=== PATIENT | female | born 1995 | race American Indian/Alaskan Native ===

== ENCOUNTER 2019-03-26 12:40 | Inpatient (IN) | payer MEDICAID ==
[2019-03-26] MEDS ORDERED: ZOFRAN IV PRN (13:02)
[2019-03-26] MEDS ORDERED: SODIUM CHLORIDE FLUSH SYRINGE 10 ML IV PRN (13:02)
[2019-03-26] MEDS: D5NS 0.2% 1,000 ML IV SCH ×2 (16:14→22:30)
[2019-03-26] MEDS: DILAUDID IV PRN ×2 (16:19→21:07)
[2019-03-26] MEDS: BENADRYL IV PRN ×2 (16:28→22:34)
[2019-03-26] MEDS: FOLVITE PO SCH (16:31)
[2019-03-26 20:05] LABS: Hematocrit 23.1 % (30.3-42.9); Hemoglobin 8.1 gm/dl (10.1-14.3); Mean Corpuscular HGB Conc 35 % (30-34); Mean Corpuscular Volume 110 fl (79-97); Platelet Count 703 K/mm3 (140-440); Red Blood Count 2.11 M/mm3 (3.65-5.03); Red Cell Distribution Width 15.5 % (13.2-15.2)
[2019-03-26 20:35] LABS: BUN/Creatinine Ratio 35; Blood Urea Nitrogen 7 mg/dL (7-17); Calcium 8.8 mg/dL (8.4-10.2); Hemolysis Index 146
[2019-03-26 20:36] LABS: % Iron Saturation 88.04 %
[2019-03-26 21:06] LABS: Alanine Aminotransferase 58 units/L (7-56)
[2019-03-26 21:25] LABS: Basophils % (Manual) 0 % (0.0-1.8); Platelet Estimate Appears Increased; Total Cells Counted 100
[2019-03-26 21:26] LABS: Sickle Cells 1+; Target Cells 1+
[2019-03-26 21:27] LABS: Macrocytosis 1+; Ovalocytes Few
[2019-03-26] MEDS: HEPARIN SUB-Q SCH (22:27)
[2019-03-26] MEDS: SODIUM CHLORIDE FLUSH SYRINGE 10 ML IV SCH (22:27)
--- NOTE | 2019-03-26 23:20 | History and Physical Report ---
History of Present Illness Date of examination: 03/26/19 Date of admission: 03/26/19 15:12 Chief complaint: sickle pain crisis. History of present illness: Patient presented to the office with diffuse joint pain, not controlled by her home meds. She was admitted for sxs management/control. Labs reviewed. WBC elevated , may be sepsis vs reactive process. hgb is fair at 8.1. Will hydrate, pain control, IV ABX until sepsis r/o.Once stable, will d/c home. She currently denies any CP.PLT quite high, felt to be reactive at this time. Past History Past Medical History: anemia Social history: no significant social history Family history: no significant family history Medications and Allergies Allergies Allergy/AdvReac Type Severity Reaction Status Date / Time morphine AdvReac Intermediate Nausea Verified 02/14/14 14:09 Home Medications Medication Instructions Recorded Confirmed Last Taken Type Folic Acid [Folvite] 1 mg PO QDAY #30 tablet 02/14/14 Unknown Rx Pantoprazole [Protonix TAB] 40 mg PO QDAY #30 tablet 02/20/14 Unknown Rx levoFLOXacin [Levaquin TAB] 750 mg PO QDAY #6 tablet 02/20/14 Unknown Rx metroNIDAZOLE [Flagyl TAB] 500 mg PO Q8HR #18 tablet 02/20/14 Unknown Rx oxyCODONE /ACETAMINOPHEN [Percocet 1 tab PO Q6HR PRN #20 tablet 02/20/14 Unknown Rx 5/325 mg] Active Meds: Active Medications Diphenhydramine HCl (Benadryl) 25 mg IV Q6H PRN PRN Reason: Itching Last Admin: 03/26/19 22:34 Dose: 25 mg Documented by: Folic Acid (Folvite) 1 mg PO QDAY APOLLO Last Admin: 03/26/19 16:31 Dose: 1 mg Documented by: Heparin Sodium (Porcine) (Heparin) 5,000 unit SUB-Q Q12HR APOLLO Last Admin: 03/26/19 22:27 Dose: 5,000 unit Documented by: Hydromorphone HCl (Dilaudid) 2 mg IV Q3H PRN PRN Reason: Pain , Severe (7-10) Last Admin: 03/26/19 21:07 Dose: 2 mg Documented by: Dextrose/Sodium Chloride (D5ns 0.2%) 1,000 mls @ 250 mls/hr IV DIRECT APOLLO Last Admin: 03/26/19 22:30 Dose: 250 mls/hr Documented by: Ceftriaxone Sodium (Rocephin/Ns 1 Gm/50 Ml) 1 gm in 50 mls @ 100 mls/hr IV Q24HR [facility]; Protocol Ondansetron HCl (Zofran) 4 mg IV Q8H PRN PRN Reason: Nausea And Vomiting Oxycodone/Acetaminophen (Percocet 5/325) 2 tab PO Q6H PRN PRN Reason: BREAKTHRU PAIN Sodium Chloride (Sodium Chloride Flush Syringe 10 Ml) 10 ml IV BID [facility] Last Admin: 03/26/19 22:27 Dose: 10 ml Documented by: Sodium Chloride (Sodium Chloride Flush Syringe 10 Ml) 10 ml IV PRN PRN PRN Reason: LINE FLUSH Review of Systems Constitutional: fatigue, chronic pain Breasts: deferred Exam - Constitutional General appearance: Present: mild distress - EENT Eyes: Present: PERRL ENT: hearing intact, clear oral mucosa - Neck Neck: Present: supple, normal ROM - Respiratory Respiratory effort: normal Respiratory: bilateral: CTA - Cardiovascular Heart Sounds: Present: S1 & S2. Absent: rub, click - Extremities Extremities: pulses symmetrical, No edema Peripheral Pulses: within normal limits - Abdominal General gastrointestinal: Present: soft, non-tender, non-distended, normal bowel sounds Female genitourinary: Present: deferred - Rectal Rectal Exam: deferred - Integumentary Integumentary: Present: clear, warm, dry - Musculoskeletal Musculoskeletal: gait normal, strength equal bilaterally - Psychiatric Psychiatric: appropriate mood/affect, intact judgment & insight - Neurologic Neurologic: CNII-XII intact, moves all extremities Results - Labs CBC & Chem 7: 03/26/19 19:31 03/26/19 19:31 Labs: Abnormal lab results 03/26/19 03/26/19 03/26/19 Range/Units 19:31 19:31 19:31 WBC 18.0 H (4.5-11.0) K/mm3 RBC 2.11 L (3.65-5.03) M/mm3 Hgb 8.1 L (10.1-14.3) gm/dl Hct 23.1 L (30.3-42.9) % MCV 110 H (79-97) fl MCH 38 H (28-32) pg MCHC 35 H (30-34) % RDW 15.5 H (13.2-15.2) % Plt Count 703 H (140-440) K/mm3 Eosinophils % (Manual) 6.0 H (0.0-4.3) % Nucleated RBC % 1.0 H (0.0-0.9) % Seg Neutrophils # Man 12.6 H (1.8-7.7) K/mm3 Eosinophils # (Manual) 1.1 H (0.0-0.4) K/mm3 Percent Retic 13.05 H (0.78-2.58) % Carbon Dioxide 21 L (22-30) mmol/L Creatinine < 0.2 L (0.7-1.2) mg/dL Iron 184 H (37-170) ug/dL TIBC 209 L (250-450) mcg/dL Transferrin 161 L (192-382) mg/dl Total Bilirubin 7.30 H (0.1-1.2) mg/dL AST 63 H (5-40) units/L ALT 58 H (7-56) units/L Assessment and Plan - Patient Problems (1) Sickle cell anemia with crisis Current Visit: No Status: Acute Plan to address problem: Tx pain, monitor labs. (2) Dehydration Current Visit: No Status: Acute Plan to address problem: Hydration (3) Sepsis Current Visit: Yes Status: Acute Plan to address problem: Will try to r/o, or r/in. will continue ABX , until then.
[2019-03-27] MEDS: DILAUDID IV PRN ×7 (01:27→23:52)
[2019-03-27] MEDS: D5NS 0.2% 1,000 ML IV SCH ×4 (02:47→20:34)
[2019-03-27] MEDS: BENADRYL IV PRN ×2 (05:11→20:24)
[2019-03-27 05:42] LABS: Bacteria,Urine 1+ /HPF (Negative); Bilirubin,Urine NEG (Negative); Blood,Urine NEG (Negative); Color,Urine Amber (Yellow); Mucus,Urine FEW /HPF; Protein,Urine <15 mg/dL mg/dL (Negative)
[2019-03-27] MEDS: PERCOCET 5/325 PO PRN ×2 (07:20→12:44)
--- NOTE | 2019-03-27 08:56 | XRay Report ---
ROUTINE CHEST, TWO VIEWS: HISTORY: Cough. The trachea, heart, mediastinal contour, lung hernandez and bony thorax are unremarkable. IMPRESSION: Unremarkable chest x-ray.
[2019-03-27] MEDS ORDERED: FOLVITE PO SCH (10:00)
[2019-03-27] MEDS ORDERED: ROCEPHIN/NS 1 GM/50 ML 1 GM/50 ML BAG IV SCH (10:00)
[2019-03-27] MEDS ORDERED: DILAUDID IV ONE (11:15)
[2019-03-27] MEDS: FOLVITE PO SCH (11:20)
[2019-03-27] MEDS: SODIUM CHLORIDE FLUSH SYRINGE 10 ML IV SCH ×2 (11:21→22:00)
[2019-03-27] MEDS: HEPARIN SUB-Q SCH ×2 (11:21→23:56)
[2019-03-27] MEDS: TORADOL IV SCH (15:41)
--- NOTE | 2019-03-27 18:42 | Discharge Summary ---
Providers - Providers Date of Admission: 03/26/19 15:12 Date of discharge: 03/28/19 Attending physician: ALAINA LUA Primary care physician: ALAINA LUA Hospitalization Reason for admission: SCD/Pain crisis. Condition: Fair Hospital course: Patient seen/examined, resting in bed, she stated ,was in a lot of pain, but better with current pain regimen.Will continue with current plan, and set up D/C home tomorrow. Disposition: - TO HOME OR SELFCARE - Discharge Diagnoses (1) Sickle cell anemia with crisis Status: Chronic (2) Dehydration Status: Acute (3) Sepsis Status: Suspected Core Measure Documentation - Palliative Care Palliative Care/ Comfort Measures: Not Applicable - Core Measures Any of the following diagnoses?: none Exam - Constitutional Vitals: Temp Pulse Resp BP Pulse Ox 98.1 F 94 H 18 97/51 92 03/27/19 17:08 03/27/19 17:08 03/27/19 17:08 03/27/19 17:08 03/27/19 17:08 General appearance: Present: mild distress - Abdominal Female genitourinary: Present: deferred - Rectal Rectal Exam: deferred Plan Activity: no restrictions Diet: regular (Hold d/c till tomorrow, and D?C then.) Follow up with: ALAINA LUA DO [Primary Care Provider] - 7 Days
[2019-03-28] MEDS: TORADOL IV SCH ×2 (02:00→07:55)
[2019-03-28] MEDS: DILAUDID IV PRN (05:10)
[2019-03-28] MEDS: BENADRYL IV PRN (05:13)
[2019-03-28 13:23] VITALS: BP 94/47
== END 2019-03-28 10:01 | disposition home or self-care (01) | DRG 812 ==
LOC: 3A 12:40 → UNDOADMIN 12:40 → 3A 15:12
PROVIDERS: ADMIT Internal Medicine Hematology & Oncology; ATTEND Internal Medicine Hematology & Oncology
DX: D57.00 Hb-SS disease with crisis, unspecified (principal); E86.0 Dehydration; Z88.5 Allergy status to narcotic agent; Z79.899 Other long term (current) drug therapy
CPT/HCPCS: 36415; 71046; 80053; 81001; 83550; 84702; 85007; 85025; 85045; 87040; 87086; 87116; G0378; J0696; J1170; J1200; J1644; J1885; J2405

== ENCOUNTER 2019-03-28 14:58 | Inpatient (IN) | payer MEDICAID ==
--- NOTE | 2019-03-28 15:06 | Emergency Department Report ---
Blank Doc - Documentation Documentation: pt presents for sickle cell pain states she has pain everywhere states she saw her doctor two days ago and was given fluids pt states she was admitted to hospital and had a blood transfusion 3-4 months states she has been taking her medication denies any other PMHx non smoker non drinker no drug use
[2019-03-28 15:24] LABS: Hematocrit 22.2 % (30.3-42.9); Hemoglobin 7.8 gm/dl (10.1-14.3); Mean Corpuscular HGB Conc 35 % (30-34); Mean Corpuscular Volume 108 fl (79-97); Platelet Count 714 K/mm3 (140-440); Red Blood Count 2.06 M/mm3 (3.65-5.03); Red Cell Distribution Width 18.4 % (13.2-15.2)
[2019-03-28 15:36] LABS: Alanine Aminotransferase 85 units/L (7-56); Albumin 4.4 g/dL (3.9-5); BUN/Creatinine Ratio 20; Blood Urea Nitrogen 6 mg/dL (7-17); Calcium 9.3 mg/dL (8.4-10.2); Hemolysis Index 15
[2019-03-28] MEDS ORDERED: ZOFRAN IV ONE ×2 (15:54→17:31)
[2019-03-28] MEDS ORDERED: DILAUDID IV ONE ×4 (15:55→18:01)
[2019-03-28] MEDS ORDERED: D5NS 0.2% 1,000 ML IV SCH (16:00)
[2019-03-28] MEDS ORDERED: BENADRYL IV ONE (16:05)
[2019-03-28] MEDS ORDERED: TORADOL IV ONE (16:38)
[2019-03-28] MEDS ORDERED: DILAUDID ONE (16:42)
[2019-03-28 16:44] LABS: Basophils % (Manual) 0 % (0.0-1.8); Total Cells Counted 100
--- NOTE | 2019-03-28 16:44 | Emergency Department Report ---
ED General Adult HPI - General Chief complaint: Sickle Cell Crisis Stated complaint: SICKLE CELL Time Seen by Provider: 03/28/19 16:20 Source: patient Mode of arrival: Wheelchair Limitations: No Limitations - History of Present Illness Initial comments: Patient is a 23-year-old female presents to emergency with generalized body pain and sickle cell crisis. Patient states been going on for 2 days. Patient states her symptoms worsen. Patient states her generalized pain is 10. Patient states the pain is worsening. Patient states better with rest and worse with palpation and movement. Patient denies chest pain or shortness of breath. -: Sudden Severity scale (0 -10): 10 Quality: stabbing Consistency: constant Improves with: rest Worsens with: movement Associated Symptoms: nausea/vomiting. denies: confusion, chest pain, cough, diaphoresis, fever/chills, headaches, loss of appetite, malaise, rash, seizure, shortness of breath, syncope, weakness Treatments Prior to Arrival: NSAID, other - Related Data Previous Rx's Medication Instructions Recorded Last Taken Type Folic Acid [Folvite] 1 mg PO QDAY #30 tablet 02/14/14 Unknown Rx Pantoprazole [Protonix TAB] 40 mg PO QDAY #30 tablet 02/20/14 Unknown Rx levoFLOXacin [Levaquin TAB] 750 mg PO QDAY #6 tablet 02/20/14 Unknown Rx metroNIDAZOLE [Flagyl TAB] 500 mg PO Q8HR #18 tablet 02/20/14 Unknown Rx oxyCODONE /ACETAMINOPHEN [Percocet 1 tab PO Q6HR PRN #20 tablet 02/20/14 Unknown Rx 5/325 mg] Allergies Allergy/AdvReac Type Severity Reaction Status Date / Time morphine AdvReac Intermediate Nausea Verified 02/14/14 14:09 ED Review of Systems ROS: Stated complaint: SICKLE CELL Other details as noted in HPI Constitutional: denies: chills, fever Eyes: denies: eye pain, eye discharge, vision change ENT: denies: ear pain, throat pain Respiratory: denies: cough, shortness of breath, wheezing Cardiovascular: denies: chest pain, palpitations Endocrine: no symptoms reported Gastrointestinal: nausea, vomiting. denies: abdominal pain, diarrhea Genitourinary: denies: urgency, dysuria, discharge Musculoskeletal: back pain. denies: joint swelling, arthralgia Skin: denies: rash, lesions Neurological: denies: headache, weakness, paresthesias Psychiatric: denies: anxiety, depression Hematological/Lymphatic: denies: easy bleeding, easy bruising ED Past Medical Hx - Past Medical History Previous Medical History?: Yes Hx Congestive Heart Failure: No Hx Diabetes: No Hx Sickle Cell Disease: Yes Hx Asthma: No Hx COPD: No Hx HIV: No - Surgical History Past Surgical History?: Yes Hx Cholecystectomy: Yes Additional Surgical History: spleen removed, and gallbaddler - Family History Family history: no significant - Social History Smoking Status: Never Smoker Substance Use Type: None - Medications Home Medications: Home Medications Medication Instructions Recorded Confirmed Last Taken Type Folic Acid [Folvite] 1 mg PO QDAY #30 tablet 02/14/14 Unknown Rx Pantoprazole [Protonix TAB] 40 mg PO QDAY #30 tablet 02/20/14 Unknown Rx levoFLOXacin [Levaquin TAB] 750 mg PO QDAY #6 tablet 02/20/14 Unknown Rx metroNIDAZOLE [Flagyl TAB] 500 mg PO Q8HR #18 tablet 02/20/14 Unknown Rx oxyCODONE /ACETAMINOPHEN [Percocet 1 tab PO Q6HR PRN #20 tablet 02/20/14 Unknow n Rx 5/325 mg] ED Physical Exam - General Limitations: No Limitations General appearance: alert, in no apparent distress - Head Head exam: Present: atraumatic, normocephalic - Eye Eye exam: Present: normal appearance - ENT ENT exam: Present: mucous membranes moist - Neck Neck exam: Present: normal inspection - Respiratory Respiratory exam: Present: normal lung sounds bilaterally. Absent: respiratory distress - Cardiovascular Cardiovascular Exam: Present: regular rate, normal rhythm. Absent: systolic murmur, diastolic murmur, rubs, gallop - GI/Abdominal GI/Abdominal exam: Present: soft, normal bowel sounds - Rectal Rectal exam: Present: deferred - Extremities Exam Extremities exam: Present: normal inspection, full ROM, tenderness - Back Exam Back exam: Present: normal inspection, full ROM, tenderness - Neurological Exam Neurological exam: Present: alert, oriented X3 - Psychiatric Psychiatric exam: Present: normal affect, normal mood - Skin Skin exam: Present: warm, dry, intact, normal color. Absent: rash ED Course Vital Signs 03/28/19 03/28/19 03/28/19 15:04 16:50 16:52 Temperature 99.8 F H Pulse Rate 134 H Respiratory 16 22 22 Rate Blood Pressure Blood Pressure 134/84 [Left] O2 Sat by Pulse 96 Oximetry 03/28/19 03/28/19 03/28/19 17:11 17:20 17:30 Temperature Pulse Rate 119 H 93 H 95 H Respiratory 18 19 19 Rate Blood Pressure 120/59 120/59 Blood Pressure [Left] O2 Sat by Pulse 94 98 Oximetry 03/28/19 03/28/19 03/28/19 17:40 17:50 18:00 Temperature Pulse Rate 82 82 85 Respiratory 15 15 16 Rate Blood Pressure 120/59 120/59 108/50 Blood Pressure [Left] O2 Sat by Pulse 97 98 96 Oximetry 03/28/19 03/28/19 03/28/19 18:10 18:20 18:30 Temperature Pulse Rate 88 90 Respiratory 13 14 13 Rate Blood Pressure 108/50 108/50 108/50 Blood Pressure [Left] O2 Sat by Pulse 96 97 97 Oximetry 03/28/19 03/28/19 03/28/19 18:40 18:50 19:00 Temperature Pulse Rate 88 115 H 77 Respiratory 12 19 18 Rate Blood Pressure 108/50 108/50 92/54 Blood Pressure [Left] O2 Sat by Pulse 98 95 97 Oximetry 03/28/19 03/28/19 03/28/19 19:02 19:10 19:20 Temperature Pulse Rate 77 114 H Respiratory 18 15 15 Rate Blood Pressure 92/54 92/54 Blood Pressure [Left] O2 Sat by Pulse 99 98 97 Oximetry 03/28/19 03/28/19 03/28/19 19:30 19:40 19:50 Temperature Pulse Rate 89 Respiratory 13 18 12 Rate Blood Pressure 92/54 92/54 92/54 Blood Pressure [Left] O2 Sat by Pulse 97 97 97 Oximetry 03/28/19 03/28/19 20:00 20:10 Temperature 99 F Pulse Rate 78 Respiratory 13 16 Rate Blood Pressure 99/50 99/50 Blood Pressure 99/50 [Left] O2 Sat by Pulse 99 99 Oximetry - Reevaluation(s) Reevaluation #1: Patient is complaining of significant pain. Patient will be given another 2 of Dilaudid and Toradol. Discussed all results with patient. Patient will be admitted to the hospitalist service. Patient agrees to plan of care. 03/28/19 16:40 Patient admitted to the hospitalist service. Patient still complaining of significant pain. Patient will get another dose of Dilaudid. 03/28/19 17:00 Patient still having significant pain. Patient given another dose of Dilaudid. 03/28/19 17:30 - Consultations Consultation #1: pcp consulted for admission. Primary care states that he is unable to admit today because he is out of town. Primary care recommends the patient admitted to the hospitalist service 03/28/19 16:45 Consultation #2: Hospitalist consultation for admission. Hospitalist to admit patient. Hospitalist to assume care patient. 03/28/19 16:46 ED Medical Decision Making - Lab Data Result diagrams: 03/28/19 15:07 03/28/19 15:07 - Medical Decision Making Patient is a 23-year-old female with a history of sickle cell anemia that presents emergency room with generalized pain and sickle cell crisis. Patient will be admitted to the hospitalist service. Patient's labs were unremarkable except for elevated reticulocyte count and anemia. Patient required multiple doses of Dilaudid to control the patient's pain. Patient also given Benadryl and Zofran. - Differential Diagnosis sickle cell crisis. Sickle cell anemia. Generalized pain. Critical Care Time: Yes Critical care attestation.: If time is entered above; I have spent that time in minutes in the direct care of this critically ill patient, excluding procedure time. Critical Care Time: 35 minutes ED Disposition Clinical Impression: Generalized pain, Sickle cell anemia with crisis Disposition: OP ADMIT IP TO THIS HOSP Is pt being admited?: Yes Does the pt Need Aspirin: No Condition: Critical Time of Disposition: 16:50
[2019-03-28 16:45] LABS: Hypochromasia 2+; Macrocytosis 1+; Sickle Cells 2+
[2019-03-28 16:46] LABS: Anisocytosis 2+; Platelet Estimate Appears Increased; Target Cells Few
--- NOTE | 2019-03-28 18:14 | History and Physical Report ---
History of Present Illness Date of examination: 03/28/19 Medications and Allergies Allergies Allergy/AdvReac Type Severity Reaction Status Date / Time morphine AdvReac Intermediate Nausea Verified 02/14/14 14:09 Home Medications Medication Instructions Recorded Confirmed Last Taken Type Folic Acid [Folvite] 1 mg PO QDAY #30 tablet 02/14/14 Unknown Rx Pantoprazole [Protonix TAB] 40 mg PO QDAY #30 tablet 02/20/14 Unknown Rx levoFLOXacin [Levaquin TAB] 750 mg PO QDAY #6 tablet 02/20/14 Unknown Rx metroNIDAZOLE [Flagyl TAB] 500 mg PO Q8HR #18 tablet 02/20/14 Unknown Rx oxyCODONE /ACETAMINOPHEN [Percocet 1 tab PO Q6HR PRN #20 tablet 02/20/14 Unk nown Rx 5/325 mg] Active Meds: Active Medications Dextrose/Sodium Chloride (D5ns 0.2%) 1,000 mls @ 250 mls/hr IV DIRECT APOLLO Last Admin: 03/28/19 16:04 Dose: 250 mls/hr Documented by: Exam - Constitutional Vitals: Temp Pulse Resp BP Pulse Ox 99.8 F H 134 H 18 134/84 96 03/28/19 15:04 03/28/19 15:04 03/28/19 17:40 03/28/19 15:04 03/28/19 15:04 Results - Labs CBC & Chem 7: 03/28/19 15:07 03/28/19 15:07 Labs: Laboratory Last Values WBC 14.2 K/mm3 (4.5-11.0) H 03/28/19 15:07 RBC 2.06 M/mm3 (3.65-5.03) L 03/28/19 15:07 Hgb 7.8 gm/dl (10.1-14.3) L 03/28/19 15:07 Hct 22.2 % (30.3-42.9) L 03/28/19 15:07 MCV 108 fl (79-97) H 03/28/19 15:07 MCH 38 pg (28-32) H 03/28/19 15:07 MCHC 35 % (30-34) H 03/28/19 15:07 RDW 18.4 % (13.2-15.2) H 03/28/19 15:07 Plt Count 714 K/mm3 (140-440) H 03/28/19 15:07 Eos % (Auto) Envelope Sealer 03/28/19 15:07 Add Manual Diff Complete 03/28/19 15:07 Total Counted 100 03/28/19 15:07 Seg Neuts % (Manual) 55.0 % (40.0-70.0) 03/28/19 15:07 0 % 03/28/19 15:07 28.0 % (13.4-35.0) 03/28/19 15:07 Reactive Lymphs % (Man) 0 % 03/28/19 15:07 10.0 % (0.0-7.3) H 03/28/19 15:07 7.0 % (0.0-4.3) H 03/28/19 15:07 0 % (0.0-1.8) 03/28/19 15:07 0 % 03/28/19 15:07 0 % 03/28/19 15:07 0 % 03/28/19 15:07 0 % 03/28/19 15:07 Nucleated RBC % 3.0 % (0.0-0.9) H 03/28/19 15:07 Seg Neutrophils # Man 7.8 K/mm3 (1.8-7.7) H 03/28/19 15:07 Band Neutrophils # 0.0 K/mm3 03/28/19 15:07 4.0 K/mm3 (1.2-5.4) 03/28/19 15:07 Abs React Lymphs (Man) 0.0 K/mm3 03/28/19 15:07 1.4 K/mm3 (0.0-0.8) H 03/28/19 15:07 1.0 K/mm3 (0.0-0.4) H 03/28/19 15:07 0.0 K/mm3 (0.0-0.1) 03/28/19 15:07 0.0 K/mm3 03/28/19 15:07 0.0 K/mm3 03/28/19 15:07 0.0 K/mm3 03/28/19 15:07 Blast Cells # 0.0 K/mm3 03/28/19 15:07 WBC Morphology Not Reportable 03/28/19 15:07 Hypersegmented Neuts Not Reportable 03/28/19 15:07 Hyposegmented Neuts Not Reportable 03/28/19 15:07 Hypogranular Neuts Not Reportable 03/28/19 15:07 Not Reportable 03/28/19 15:07 Not Reportable 03/28/19 15:07 Not Reportable 03/28/19 15:07 Not Reportable 03/28/19 15:07 Not Reportable 03/28/19 15:07 Not Reportable 03/28/19 15:07 Appears increased 03/28/19 15:07 Not Reportable 03/28/19 15:07 Plt Clumps, EDTA Not Reportable 03/28/19 15:07 Not Reportable 03/28/19 15:07 Not Reportable 03/28/19 15:07 Not Reportable 03/28/19 15:07 Plt Morphology Comment Not Reportable 03/28/19 15:07 RBC Morphology Not Reportable 03/28/19 15:07 Dimorphic RBCs Not Reportable 03/28/19 15:07 1+ 03/28/19 15:07 2+ 03/28/19 15:07 Not Reportable 03/28/19 15:07 2+ 03/28/19 15:07 Not Reportable 03/28/19 15:07 1+ 03/28/19 15:07 Not Reportable 03/28/19 15:07 Not Reportable 03/28/19 15:07 2+ 03/28/19 15:07 Few 03/28/19 15:07 Not Reportable 03/28/19 15:07 Not Reportable 03/28/19 15:07 Not Reportable 03/28/19 15:07 Not Reportable 03/28/19 15:07 Not Reportable 03/28/19 15:07 Not Reportable 03/28/19 15:07 Not Reportable 03/28/19 15:07 Not Reportable 03/28/19 15:07 Not Reportable 03/28/19 15:07 Acanthocytes (Spur) Not Reportable 03/28/19 15:07 Rouleaux Not Reportable 03/28/19 15:07 Not Reportable 03/28/19 15:07 Not Reportable 03/28/19 15:07 Not Reportable 03/28/19 15:07 Percent Retic 14.69 % (0.78-2.58) H 03/28/19 15:07 Not Reportable 03/28/19 15:07 Hem Pathologist Commnt No 03/28/19 15:07 Sodium 138 mmol/L (137-145) 03/28/19 15:07 Potassium 4.4 mmol/L (3.6-5.0) 03/28/19 15:07 Chloride 101.4 mmol/L (98-107) 03/28/19 15:07 Carbon Dioxide 25 mmol/L (22-30) 03/28/19 15:07 16 mmol/L 03/28/19 15:07 BUN 6 mg/dL (7-17) L 03/28/19 15:07 0.3 mg/dL (0.7-1.2) L D 03/28/19 15:07 Estimated GFR > 60 ml/min 03/28/19 15:07 20 % 03/28/19 15:07 Glucose 94 mg/dL (65-100) 03/28/19 15:07 Calcium 9.3 mg/dL (8.4-10.2) 03/28/19 15:07 12.60 mg/dL (0.1-1.2) H 03/28/19 15:07 AST 54 units/L (5-40) H 03/28/19 15:07 ALT 85 units/L (7-56) H 03/28/19 15:07 135 units/L (35-129) H 03/28/19 15:07 278 units/L (91-180) H 03/28/19 15:07 6.9 g/dL (6.3-8.2) 03/28/19 15:07 4.4 g/dL (3.9-5) 03/28/19 15:07 1.8 % 03/28/19 15:07
[2019-03-28] MEDS ORDERED: ZOFRAN IV PRN (18:16)
[2019-03-28] MEDS ORDERED: TYLENOL PO PRN (18:16)
[2019-03-28] MEDS ORDERED: D5NS 1,000 ML IV ONE (19:27)
[2019-03-28] MEDS ORDERED: PROTONIX PO ONE (19:27)
[2019-03-28] MEDS ORDERED: LOVENOX SUB-Q ONE (19:27)
[2019-03-28] MEDS ORDERED: FOLVITE ONE (19:27)
[2019-03-28] MEDS: LOVENOX SUB-Q SCH (19:42)
[2019-03-28] MEDS: PROTONIX PO SCH (19:42)
[2019-03-28] MEDS: FOLVITE PO SCH (19:42)
[2019-03-28] MEDS ORDERED: NORCO 5/325 ONE (19:48)
[2019-03-28] MEDS ORDERED: PERCOCET 5/325 ONE (19:51)
[2019-03-28] MEDS: PERCOCET 5/325 PO PRN (19:53)
[2019-03-28] MEDS: DILAUDID IV PRN (21:19)
[2019-03-28] MEDS: SODIUM CHLORIDE FLUSH SYRINGE 10 ML IV SCH (22:23)
[2019-03-28] MEDS: BENADRYL PO PRN (23:47)
[2019-03-28] MEDS: TORADOL PO PRN (23:47)
--- NOTE | 2019-03-29 00:27 | Event Note ---
Date: 03/28/19 See H/p in reports Sickle cell crisis SIRS anemia Reticulocytosis
[2019-03-29] MEDS: DILAUDID IV PRN ×8 (00:35→23:05)
--- NOTE | 2019-03-29 00:50 | History and Physical Report ---
CHIEF COMPLAINT: Generalized body pain for 2 days. HISTORY OF PRESENT ILLNESS: A 23-year-old with history of sickle cell anemia and sickle cell crisis, comes in for generalized body pains, about 10 on a scale of 1-10. Sharp in nature. Unbearable. The patient states it is better with rest and worse with any movement. No chest pain. No shortness of breath. No fever or chills. PAST MEDICAL HISTORY: Significant for sickle cell anemia and sickle cell crisis, chronic pain. PAST SURGICAL HISTORY: Significant for splenectomy and gallbladder removal. FAMILY HISTORY: No significant family history. SOCIAL HISTORY: Does not smoke. REVIEW OF SYSTEMS: Significant for generalized pains all over, sharp in nature, intermittent, 10 on a scale of 1-10. Otherwise, review of systems negative. PHYSICAL EXAMINATION: GENERAL: Young female, in distress because of pain, cooperative during examination. VITAL SIGNS: Blood pressure is 99/50, temperature is 98, pulse is 78, respirations are 18, sats are 99%. HEENT: Unremarkable. Pupils equal and reactive. NECK: Supple, no lymphadenopathy, no thyromegaly. LUNGS: Clear to auscultation and percussion. Good air entry. CARDIOVASCULAR: S1, S2 heard. No gallop, no murmur, no rub. Apical impulse in left fifth intercostal space and midclavicular line. ABDOMEN: Soft and benign. No hepatosplenomegaly. No guarding, no rigidity. Hernial orifices are normal. EXTREMITIES: Good pedal pulses. No pedal edema. CENTRAL NERVOUS SYSTEM: Alert and oriented x 4, nonfocal exam. SKIN: Normal. LABORATORY DATA: White count is 14,200, H and H is 7.8 and 22.2, MCV is high, MCH is high, platelet count is 714,000. Retic count is 14.69. Electrolytes are normal. AST and ALT are high at 54 and 85 respectively. Lactic dehydrogenase is 278. Alkaline phosphatase is 135. ASSESSMENT AND PLAN: 1. Systemic inflammatory response syndrome. The patient has high white count. The patient has ongoing pain secondary to sickle cell crisis. IV Levaquin empirically given. 2. Sickle cell crisis. IV fluids and IV Dilaudid 1 mg q. 3 p.r.n. Folic acid to continue. 3. Anemia. To transfuse if it drops below 7.0. 4. Deep venous thrombosis prophylaxis, Lovenox 40 mg subcutaneous daily. [facility]# [id number] IMAN/MIKE
[2019-03-29 02:34] LABS: Mean Corpuscular HGB Conc 35 % (30-34); Mean Corpuscular Volume 109 fl (79-97); Platelet Count 603 K/mm3 (140-440); Red Cell Distribution Width 18.6 % (13.2-15.2)
[2019-03-29 02:55] LABS: Alanine Aminotransferase 67 units/L (7-56); Albumin 3.4 g/dL (3.9-5); BUN/Creatinine Ratio 15; Blood Urea Nitrogen 6 mg/dL (7-17); Hemoglobin 6.7 gm/dl (10.1-14.3); Hemolysis Index 14
[2019-03-29 02:56] LABS: Hematocrit 20.5 % (30.3-42.9)
[2019-03-29 04:39] LABS: % Iron Saturation 77.37 %
[2019-03-29] MEDS: TORADOL PO PRN (05:59)
[2019-03-29] MEDS: BENADRYL PO PRN (06:00)
[2019-03-29 07:12] LABS: Bilirubin,Urine SM (Negative); Blood,Urine NEG (Negative); Color,Urine Amber (Yellow); Mucus,Urine FEW /HPF; Protein,Urine <15 mg/dL mg/dL (Negative)
[2019-03-29] MEDS: D5NS 1,000 ML IV SCH ×2 (07:13→19:14)
[2019-03-29 08:36] LABS: Ictotest,Urine Negative (Negative)
[2019-03-29 09:03] LABS: Basophils % (Manual) 0 % (0.0-1.8); Total Cells Counted 100
[2019-03-29 09:04] LABS: Anisocytosis 2+; Hypochromasia 1+; Ovalocytes 1+; Sickle Cells 2+; Target Cells Few
[2019-03-29 09:05] LABS: Platelet Estimate Appears Increased
[2019-03-29] MEDS: FOLVITE PO SCH (09:52)
[2019-03-29] MEDS: LOVENOX SUB-Q SCH (09:52)
[2019-03-29] MEDS: LEVAQUIN 750MG/150ML 750 MG/150 ML BAG IV SCH (09:53)
[2019-03-29] MEDS ORDERED: NACL 0.9% 500 ML 500 ML IV ONE (10:00)
[2019-03-29] MEDS: BENADRYL IV PRN ×2 (13:10→19:49)
[2019-03-29] MEDS: SODIUM CHLORIDE FLUSH SYRINGE 10 ML IV SCH ×2 (13:16→22:06)
[2019-03-29] MEDS: PROTONIX PO SCH (13:16)
--- NOTE | 2019-03-29 13:33 | Progress Note ---
Assessment and Plan Assessment and plan: 23-year-old -[place] female was admitted to the hospital yesterday for the management of sickle cell pain crisis. Sickle cell pain crisis - Pain control - Continue home medications Sickle cell anemia - Hemoglobin this morning was 6.7, will transfuse 1 unit of packed RBC Leukocytosis - Reactive - Patient was started with Levaquin DVT prophylaxis Disposition - Continue inpatient care, discharge once pain is controlled. History Interval history: Patient was seen and developed this morning, patient is complaining of generalized pain worse on the extremity joints. Hospitalist Physical - Physical exam Narrative exam: Not in cardiopulmonary distress. The patient appeared well nourished and normally developed. Vital signs as documented. Head exam is unremarkable. No scleral icterus . Neck is without jugular venous distension, thyromegaly, or carotid bruits. Lungs are clear to auscultation. Cardiac exam reveals regular rate and Rhythm. Abdominal exam reveals normal bowel sounds, no masses, no organomegaly and no aortic enlargement. Extremities are nonedematous and both femoral and pedal pulses are normal. PROP MAKING SUPERVISOR: Alert and oriented 3. No focal weakness. - Constitutional Vitals: Temp Pulse Resp BP Pulse Ox 98.7 F 101 H 19 101/58 99 03/29/19 12:12 03/29/19 12:12 03/29/19 12:12 03/29/19 12:12 03/29/19 12:12 Results - Labs CBC & Chem 7: 03/29/19 02:05 03/29/19 02:05 Labs: Laboratory Last Values WBC 14.5 K/mm3 (4.5-11.0) H 03/29/19 02:05 RBC 1.80 M/mm3 (3.65-5.03) L 03/29/19 02:05 Hgb 6.7 gm/dl (10.1-14.3) L 03/29/19 02:05 Hct 20.5 % (30.3-42.9) L 03/29/19 02:05 MCV 109 fl (79-97) H 03/29/19 02:05 MCH 38 pg (28-32) H 03/29/19 02:05 MCHC 35 % (30-34) H 03/29/19 02:05 RDW 18.6 % (13.2-15.2) H 03/29/19 02:05 Plt Count 603 K/mm3 (140-440) H 03/29/19 02:05 Eos % (Auto) Photoradio Operator 03/28/19 15:07 Lymph # Photoradio Operator 03/29/19 02:05 Add Manual Diff Complete 03/29/19 02:05 Total Counted 100 03/29/19 02:05 Seg Neuts % (Manual) 40.0 % (40.0-70.0) 03/29/19 02:05 0 % 03/29/19 02:05 41.0 % (13.4-35.0) H 03/29/19 02:05 Reactive Lymphs % (Man) 0 % 03/29/19 02:05 7.0 % (0.0-7.3) 03/29/19 02:05 12.0 % (0.0-4.3) H 03/29/19 02:05 0 % (0.0-1.8) 03/29/19 02:05 0 % 03/29/19 02:05 0 % 03/29/19 02:05 0 % 03/29/19 02:05 0 % 03/29/19 02:05 Nucleated RBC % 3.0 % (0.0-0.9) H 03/29/19 02:05 Seg Neutrophils # Man 5.8 K/mm3 (1.8-7.7) 03/29/19 02:05 Band Neutrophils # 0.0 K/mm3 03/29/19 02:05 5.9 K/mm3 (1.2-5.4) H 03/29/19 02:05 Abs React Lymphs (Man) 0.0 K/mm3 03/29/19 02:05 1.0 K/mm3 (0.0-0.8) H 03/29/19 02:05 1.7 K/mm3 (0.0-0.4) H 03/29/19 02:05 0.0 K/mm3 (0.0-0.1) 03/29/19 02:05 0.0 K/mm3 03/29/19 02:05 0.0 K/mm3 03/29/19 02:05 0.0 K/mm3 03/29/19 02:05 Blast Cells # 0.0 K/mm3 03/29/19 02:05 WBC Morphology Not Reportable 03/29/19 02:05 Hypersegmented Neuts Not Reportable 03/29/19 02:05 Hyposegmented Neuts Not Reportable 03/29/19 02:05 Hypogranular Neuts Not Reportable 03/29/19 02:05 Not Reportable 03/29/19 02:05 Not Reportable 03/29/19 02:05 Not Reportable 03/29/19 02:05 Not Reportable 03/29/19 02:05 Not Reportable 03/29/19 02:05 Not Reportable 03/29/19 02:05 Appears increased 03/29/19 02:05 Not Reportable 03/29/19 02:05 Plt Clumps, EDTA Not Reportable 03/29/19 02:05 Not Reportable 03/29/19 02:05 Not Reportable 03/29/19 02:05 Not Reportable 03/29/19 02:05 Plt Morphology Comment Not Reportable 03/29/19 02:05 RBC Morphology Not Reportable 03/29/19 02:05 Dimorphic RBCs Not Reportable 03/29/19 02:05 1+ 03/29/19 02:05 1+ 03/29/19 02:05 Not Reportable 03/29/19 02:05 2+ 03/29/19 02:05 Not Reportable 03/29/19 02:05 Not Reportable 03/29/19 02:05 Not Reportable 03/29/19 02:05 Not Reportable 03/29/19 02:05 2+ 03/29/19 02:05 Few 03/29/19 02:05 Not Reportable 03/29/19 02:05 1+ 03/29/19 02:05 Not Reportable 03/29/19 02:05 Not Reportable 03/29/19 02:05 Not Reportable 03/29/19 02:05 Not Reportable 03/29/19 02:05 Not Reportable 03/29/19 02:05 Not Reportable 03/29/19 02:05 Not Reportable 03/29/19 02:05 Acanthocytes (Spur) Not Reportable 03/29/19 02:05 Rouleaux Not Reportable 03/29/19 02:05 Not Reportable 03/29/19 02:05 Not Reportable 03/29/19 02:05 Not Reportable 03/29/19 02:05 Percent Retic 14.69 % (0.78-2.58) H 03/28/19 15:07 Not Reportable 03/29/19 02:05 Hem Pathologist Commnt No 03/29/19 02:05 Sodium 142 mmol/L (137-145) 03/29/19 02:05 Potassium 3.8 mmol/L (3.6-5.0) 03/29/19 02:05 Chloride 103.7 mmol/L (98-107) 03/29/19 02:05 Carbon Dioxide 28 mmol/L (22-30) 03/29/19 02:05 14 mmol/L 03/29/19 02:05 BUN 6 mg/dL (7-17) L 03/29/19 02:05 0.4 mg/dL (0.7-1.2) L 03/29/19 02:05 Estimated GFR > 60 ml/min 03/29/19 02:05 15 % 03/29/19 02:05 Glucose 111 mg/dL (65-100) H 03/29/19 02:05 5.2 % (4-6) 03/28/19 15:07 Calcium 9.0 mg/dL (8.4-10.2) 03/29/19 02:05 Iron 106 ug/dL (37-170) 03/29/19 02:05 TIBC 137 mcg/dL (250-450) L 03/29/19 02:05 % Saturation 77.37 % 03/29/19 02:05 135 mg/dl (192-382) L 03/29/19 02:05 6.70 mg/dL (0.1-1.2) H 03/29/19 02:05 AST 40 units/L (5-40) 03/29/19 02:05 ALT 67 units/L (7-56) H 03/29/19 02:05 114 units/L (35-129) 03/29/19 02:05 278 units/L (91-180) H 03/28/19 15:07 6.7 g/dL (6.3-8.2) 03/29/19 02:05 3.4 g/dL (3.9-5) L 03/29/19 02:05 1.0 % 03/29/19 02:05 Vitamin B12 367.9 pg/mL (211-911) 03/29/19 02:05 Nicol (Yellow) 03/29/19 07:01 Clear (Clear) 03/29/19 07:01 5.0 (5.0-7.0) 03/29/19 07:01 Ur Specific [place] 1.013 (1.003-1.030) 03/29/19 07:01 <15 mg/dl mg/dL (Negative) 03/29/19 07:01 Neg mg/dL (Negative) 03/29/19 07:01 Neg mg/dL (Negative) 03/29/19 07:01 Neg (Negative) 03/29/19 07:01 Pos (Negative) 03/29/19 07:01 Sm (Negative) 03/29/19 07:01 Negative (Negative) 03/29/19 07:01 4.0 mg/dL (<2.0) 03/29/19 07:01 Ur Leukocyte Esterase Neg (Negative) 03/29/19 07:01 2.0 /HPF (0.0-6.0) 03/29/19 07:01 2.0 /HPF (0.0-6.0) 03/29/19 07:01 U Epithel Cells (Auto) 2.0 /HPF (0-13.0) 03/29/19 07:01 Few /HPF 03/29/19 07:01 Blood Type A POSITIVE 03/29/19 10:31 Antibody Screen Negative 03/29/19 10:31 CHRISTOPHER Antibody Screen Negative 03/29/19 10:31 Crossmatch See Detail 03/29/19 10:31 Active Medications - Current Medications Current Medications: Generic Name Dose Route Start Last Admin Trade Name Bahmanq PRN Reason Stop Dose Admin Acetaminophen 650 mg 03/28/19 18:16 Tylenol PO Q4H PRN Pain MILD(1-3)/Fever >100.5/BECERRIL Diphenhydramine HCl 25 mg 03/29/19 13:00 03/29/19 13:10 Benadryl IV 25 mg Q6H PRN Administration Itching Enoxaparin Sodium 40 mg 03/28/19 19:00 03/29/19 09:52 Lovenox SUB-Q 40 mg QDAY APOLLO Administration Folic Acid 1 mg 03/28/19 19:00 03/29/19 09:52 Folvite PO 1 mg QDAY APOLLO Administration Hydromorphone HCl 1 mg 03/28/19 18:16 03/29/19 13:09 Dilaudid IV 1 mg Q3H PRN Administration Pain , Severe (7-10) Dextrose/Sodium Chloride 1,000 mls @ 125 mls/hr 03/28/19 19:00 03/29/19 07:13 D5ns IV 125 mls/hr DIRECT APOLLO Administration Levofloxacin/Dextrose 750 mg in 150 mls @ 100 mls/hr 03/29/19 10:00 03/29/19 09:53 Levaquin 750mg/150ml IV 04/02/19 11:29 100 mls/hr Q24HR APOLLO Administration Protocol Ketorolac Tromethamine 10 mg 03/28/19 22:58 03/29/19 05:59 Toradol PO 04/02/19 22:57 10 mg Q6H PRN Administration Pain, Mild (1-3) Ondansetron HCl 4 mg 03/28/19 18:16 Zofran IV Q8H PRN Nausea And Vomiting Oxycodone/Acetaminophen 1 tab 03/28/19 18:16 03/28/19 19:53 Percocet 5/325 PO 1 tab Q6H PRN Administration Pain, Moderate (4-6) Pantoprazole Sodium 40 mg 03/28/19 19:00 03/29/19 13:16 Protonix PO 40 mg QDAY APOLLO Administration Sodium Chloride 10 ml 03/28/19 22:00 03/29/19 13:16 Sodium Chloride Flush Syringe 10 Ml IV 10 ml BID APOLLO Administration Sodium Chloride 10 ml 03/28/19 18:16 Sodium Chloride Flush Syringe 10 Ml IV PRN PRN LINE FLUSH
[2019-03-29] MEDS: PERCOCET 5/325 PO PRN ×2 (14:26→22:05)
[2019-03-30] MEDS: DILAUDID IV PRN ×7 (01:59→21:56)
[2019-03-30] MEDS: BENADRYL IV PRN ×4 (02:00→21:57)
[2019-03-30] MEDS: D5NS 1,000 ML IV SCH ×3 (02:13→21:21)
[2019-03-30 06:54] LABS: Hematocrit 22.4 % (30.3-42.9); Hemoglobin 7.8 gm/dl (10.1-14.3); Mean Corpuscular HGB Conc 35 % (30-34); Mean Corpuscular Volume 107 fl (79-97); Platelet Count 628 K/mm3 (140-440); Red Cell Distribution Width 19.2 % (13.2-15.2)
[2019-03-30 07:17] LABS: BUN/Creatinine Ratio 4; Blood Urea Nitrogen 2 mg/dL (7-17); Calcium 8.8 mg/dL (8.4-10.2); Hemolysis Index 3
[2019-03-30 10:39] LABS: Band Neutrophils # (Manual) 0.1 K/mm3; Total Cells Counted 100
[2019-03-30 10:40] LABS: Anisocytosis 2+; Hypochromasia 1+; Macrocytosis 2+; Poikilocytosis 1+; Sickle Cells Few
[2019-03-30 10:41] LABS: Ovalocytes Few; Platelet Estimate Appears Increased; Target Cells Few
[2019-03-30] MEDS: SODIUM CHLORIDE FLUSH SYRINGE 10 ML IV SCH ×2 (11:20→21:20)
[2019-03-30] MEDS: LOVENOX SUB-Q SCH (11:21)
[2019-03-30] MEDS: LEVAQUIN 750MG/150ML 750 MG/150 ML BAG IV SCH (11:21)
[2019-03-30] MEDS: PROTONIX PO SCH (11:21)
[2019-03-30] MEDS: FOLVITE PO SCH (11:22)
[2019-03-30] MEDS ORDERED: DULCOLAX PR PRN (12:51)
[2019-03-30] MEDS ORDERED: NORCO 10/325 PO PRN (12:51)
[2019-03-30] MEDS ORDERED: MILK OF MAGNESIA PO PRN (12:51)
--- NOTE | 2019-03-30 12:53 | Progress Note ---
Assessment and Plan Assessment and plan: 23-year-old -[place] female was admitted to the hospital yesterday for the management of sickle cell pain crisis. Sickle cell pain crisis - Pain control - Continue home medications Sickle cell anemia - Hemoglobin this morning was 6.7, will transfuse 1 unit of packed RBC Leukocytosis - Reactive - Patient was started with Levaquin DVT prophylaxis Disposition - Continue inpatient care, discharge once pain is controlled. History Interval history: Continues to complain of pain all over her body Review of systems Constitutional: No fevers, no malaise, no joint pains CVS: No chest pain, no orthopnea, no pedal edema GI: No abdominal pain, no diarrhea, no vomiting, no constipation Respiratory: No shortness of breath, no wheezing, no coughing Hospitalist Physical - Physical exam Narrative exam: General.: Appears well, no distress, nontoxic HEENT: Moist mucous membranes, extraocular muscles intact, no lymphadenopathy, scleral icterus .Neck: supple Cardiac: S1-S2 heard Lungs: clear to auscultation bilaterally Abdomen: soft , nontender, nondistended, bowel sounds positive Extremities: no edema clubbing or cyanosis Skin: no rash or lesions Neurologic: no gross focal deficits Psych: calm, and cooperative - Constitutional Vitals: Temp Pulse Resp BP Pulse Ox 99.0 F 86 16 108/79 95 03/30/19 04:09 03/30/19 04:09 03/30/19 12:44 03/30/19 04:09 03/30/19 04:09 Results - Labs CBC & Chem 7: 04/02/19 06:08 03/30/19 06:28 Labs: Laboratory Last Values WBC 14.0 K/mm3 (4.5-11.0) H 03/30/19 06:28 RBC 2.10 M/mm3 (3.65-5.03) L 03/30/19 06:28 Hgb 7.8 gm/dl (10.1-14.3) L 03/30/19 06:28 Hct 22.4 % (30.3-42.9) L 03/30/19 06:28 MCV 107 fl (79-97) H 03/30/19 06:28 MCH 37 pg (28-32) H 03/30/19 06:28 MCHC 35 % (30-34) H 03/30/19 06:28 RDW 19.2 % (13.2-15.2) H 03/30/19 06:28 Plt Count 628 K/mm3 (140-440) H 03/30/19 06:28 Eos % (Auto) Business Services Manager 03/28/19 15:07 Lymph # Business Services Manager 03/29/19 02:05 Add Manual Diff Complete 03/30/19 06:28 Total Counted 100 03/30/19 06:28 Seg Neuts % (Manual) 61.0 % (40.0-70.0) 03/30/19 06:28 1.0 % 03/30/19 06:28 27.0 % (13.4-35.0) 03/30/19 06:28 Reactive Lymphs % (Man) 0 % 03/30/19 06:28 6.0 % (0.0-7.3) 03/30/19 06:28 4.0 % (0.0-4.3) 03/30/19 06:28 1.0 % (0.0-1.8) 03/30/19 06:28 0 % 03/30/19 06:28 0 % 03/30/19 06:28 0 % 03/30/19 06:28 0 % 03/30/19 06:28 Nucleated RBC % Not Reportable 03/30/19 06:28 Seg Neutrophils # Man 8.5 K/mm3 (1.8-7.7) H 03/30/19 06:28 Band Neutrophils # 0.1 K/mm3 03/30/19 06:28 3.8 K/mm3 (1.2-5.4) 03/30/19 06:28 Abs React Lymphs (Man) 0.0 K/mm3 03/30/19 06:28 0.8 K/mm3 (0.0-0.8) 03/30/19 06:28 0.6 K/mm3 (0.0-0.4) H 03/30/19 06:28 0.1 K/mm3 (0.0-0.1) 03/30/19 06:28 0.0 K/mm3 03/30/19 06:28 0.0 K/mm3 03/30/19 06:28 0.0 K/mm3 03/30/19 06:28 Blast Cells # 0.0 K/mm3 03/30/19 06:28 WBC Morphology Not Reportable 03/30/19 06:28 WBC Morphology TNR 03/30/19 06:28 Hypersegmented Neuts Not Reportable 03/30/19 06:28 Hyposegmented Neuts Not Reportable 03/30/19 06:28 Hypogranular Neuts Not Reportable 03/30/19 06:28 Not Reportable 03/30/19 06:28 Not Reportable 03/30/19 06:28 Not Reportable 03/30/19 06:28 Not Reportable 03/30/19 06:28 Not Reportable 03/30/19 06:28 Not Reportable 03/30/19 06:28 Appears increased 03/30/19 06:28 Not Reportable 03/30/19 06:28 Plt Clumps, EDTA Not Reportable 03/30/19 06:28 Not Reportable 03/30/19 06:28 Not Reportable 03/30/19 06:28 Not Reportable 03/30/19 06:28 Plt Morphology Comment Not Reportable 03/30/19 06:28 RBC Morphology Not Reportable 03/30/19 06:28 Dimorphic RBCs Not Reportable 03/30/19 06:28 Few 03/30/19 06:28 1+ 03/30/19 06:28 1+ 03/30/19 06:28 2+ 03/30/19 06:28 Not Reportable 03/30/19 06:28 2+ 03/30/19 06:28 Not Reportable 03/30/19 06:28 Not Reportable 03/30/19 06:28 Few 03/30/19 06:28 Few 03/30/19 06:28 Not Reportable 03/30/19 06:28 Few 03/30/19 06:28 Not Reportable 03/30/19 06:28 Not Reportable 03/30/19 06:28 Not Reportable 03/30/19 06:28 Not Reportable 03/30/19 06:28 Not Reportable 03/30/19 06:28 Not Reportable 03/30/19 06:28 Few 03/30/19 06:28 Acanthocytes (Spur) Not Reportable 03/30/19 06:28 Rouleaux Not Reportable 03/30/19 06:28 Not Reportable 03/30/19 06:28 Not Reportable 03/30/19 06:28 Not Reportable 03/30/19 06:28 Percent Retic 14.69 % (0.78-2.58) H 03/28/19 15:07 Not Reportable 03/30/19 06:28 Hem Pathologist Commnt No 03/30/19 06:28 Sodium 142 mmol/L (137-145) 03/30/19 06:28 Potassium 4.0 mmol/L (3.6-5.0) 03/30/19 06:28 Chloride 107.0 mmol/L (98-107) 03/30/19 06:28 Carbon Dioxide 26 mmol/L (22-30) 03/30/19 06:28 13 mmol/L 03/30/19 06:28 BUN 2 mg/dL (7-17) L 03/30/19 06:28 0.5 mg/dL (0.7-1.2) L 03/30/19 06:28 Estimated GFR > 60 ml/min 03/30/19 06:28 4 % 03/30/19 06:28 Glucose 92 mg/dL (65-100) 03/30/19 06:28 5.2 % (4-6) 03/28/19 15:07 Calcium 8.8 mg/dL (8.4-10.2) 03/30/19 06:28 Iron 106 ug/dL (37-170) 03/29/19 02:05 TIBC 137 mcg/dL (250-450) L 03/29/19 02:05 % Saturation 77.37 % 03/29/19 02:05 135 mg/dl (192-382) L 03/29/19 02:05 6.70 mg/dL (0.1-1.2) H 03/29/19 02:05 AST 40 units/L (5-40) 03/29/19 02:05 ALT 67 units/L (7-56) H 03/29/19 02:05 114 units/L (35-129) 03/29/19 02:05 278 units/L (91-180) H 03/28/19 15:07 6.7 g/dL (6.3-8.2) 03/29/19 02:05 3.4 g/dL (3.9-5) L 03/29/19 02:05 1.0 % 03/29/19 02:05 Vitamin B12 367.9 pg/mL (211-911) 03/29/19 02:05 Nicol (Yellow) 03/29/19 07:01 Clear (Clear) 03/29/19 07:01 5.0 (5.0-7.0) 03/29/19 07:01 Ur Specific [place] 1.013 (1.003-1.030) 03/29/19 07:01 <15 mg/dl mg/dL (Negative) 03/29/19 07:01 Neg mg/dL (Negative) 03/29/19 07:01 Neg mg/dL (Negative) 03/29/19 07:01 Neg (Negative) 03/29/19 07:01 Pos (Negative) 03/29/19 07:01 Sm (Negative) 03/29/19 07:01 Negative (Negative) 03/29/19 07:01 4.0 mg/dL (<2.0) 03/29/19 07:01 Ur Leukocyte Esterase Neg (Negative) 03/29/19 07:01 2.0 /HPF (0.0-6.0) 03/29/19 07:01 2.0 /HPF (0.0-6.0) 03/29/19 07:01 U Epithel Cells (Auto) 2.0 /HPF (0-13.0) 03/29/19 07:01 Few /HPF 03/29/19 07:01 Blood Type A POSITIVE 03/29/19 10:31 Antibody Screen Negative 03/29/19 10:31 CHRISTOPHER Antibody Screen Negative 03/29/19 10:31 Crossmatch See Detail 03/29/19 10:31 Active Medications - Current Medications Current Medications: Generic Name Dose Route Start Last Admin Trade Name Freq PRN Reason Stop Dose Admin Acetaminophen 650 mg 03/28/19 18:16 Tylenol PO Q4H PRN Pain MILD(1-3)/Fever >100.5/BECERRIL Diphenhydramine HCl 25 mg 03/29/19 13:00 03/30/19 09:15 Benadryl IV 25 mg Q6H PRN Administration Itching Enoxaparin Sodium 40 mg 03/28/19 19:00 03/30/19 11:21 Lovenox SUB-Q 40 mg QDAY APOLLO Administration Folic Acid 1 mg 03/28/19 19:00 03/30/19 11:22 Folvite PO 1 mg QDAY APOLLO Administration Hydromorphone HCl 1 mg 03/28/19 18:16 03/30/19 12:44 Dilaudid IV 1 mg Q3H PRN Administration Pain , Severe (7-10) Dextrose/Sodium Chloride 1,000 mls @ 125 mls/hr 03/28/19 19:00 03/30/19 11:22 D5ns IV 125 mls/hr DIRECT APOLLO Administration Levofloxacin/Dextrose 750 mg in 150 mls @ 100 mls/hr 03/29/19 10:00 03/30/19 11:21 Levaquin 750mg/150ml IV 100 mls/hr Q24HR APOLLO Administration Protocol Ketorolac Tromethamine 10 mg 03/28/19 22:58 03/29/19 05:59 Toradol PO 04/02/19 22:57 10 mg Q6H PRN Administration Pain, Mild (1-3) Ondansetron HCl 4 mg 03/28/19 18:16 Zofran IV Q8H PRN Nausea And Vomiting Oxycodone/Acetaminophen 1 tab 03/28/19 18:16 03/29/19 22:05 Percocet 5/325 PO 1 tab Q6H PRN Administration Pain, Moderate (4-6) Pantoprazole Sodium 40 mg 03/28/19 19:00 03/30/19 11:21 Protonix PO 40 mg QDAY APOLLO Administration Sodium Chloride 10 ml 03/28/19 22:00 03/30/19 11:20 Sodium Chloride Flush Syringe 10 Ml IV 10 ml BID APOLLO Administration Sodium Chloride 10 ml 03/28/19 18:16 Sodium Chloride Flush Syringe 10 Ml IV PRN PRN LINE FLUSH
[2019-03-30] MEDS: THERAGRAN Tab PO SCH (15:36)
[2019-03-30] MEDS: SENOKOT PO SCH (21:19)
[2019-03-31] MEDS: DILAUDID IV PRN ×6 (01:13→22:22)
[2019-03-31] MEDS: BENADRYL IV PRN ×3 (04:24→18:05)
[2019-03-31] MEDS: D5NS 1,000 ML IV SCH ×3 (04:35→22:25)
[2019-03-31] MEDS: LOVENOX SUB-Q SCH (09:06)
[2019-03-31] MEDS: LEVAQUIN 750MG/150ML 750 MG/150 ML BAG IV SCH (09:06)
[2019-03-31] MEDS: FOLVITE PO SCH (09:06)
[2019-03-31] MEDS: PROTONIX PO SCH (09:06)
[2019-03-31] MEDS: THERAGRAN Tab PO SCH (09:07)
[2019-03-31 09:18] LABS: Hematocrit 23.3 % (30.3-42.9); Mean Corpuscular HGB Conc 35 % (30-34); Mean Corpuscular Volume 108 fl (79-97); Platelet Count 627 K/mm3 (140-440); Red Blood Count 2.17 M/mm3 (3.65-5.03); Red Cell Distribution Width 18.1 % (13.2-15.2)
[2019-03-31 10:57] LABS: Total Cells Counted 100
[2019-03-31 10:58] LABS: Anisocytosis 2+; Macrocytosis 1+; Ovalocytes Few; Platelet Estimate Consistent w Auto; Poikilocytosis 1+; Sickle Cells Few
[2019-03-31] MEDS: SODIUM CHLORIDE FLUSH SYRINGE 10 ML IV SCH ×2 (11:08→22:23)
--- NOTE | 2019-03-31 14:05 | History and Physical Report ---
History of Present Illness Date of examination: 03/31/19 Date of admission: 03/28/19 18:16 Replaced H/P on 03/31/19 Chief complaint: Patient presented to the ER w/in the same HR that she was d/mariam. She claimed that she experienced some excruciating pain in the legs. She was seen, and quickly readmitted back in to the Hospital.She is started back on hydration, pain control, and routine labs monitoring.Chief complaints is Diffuse joint pain, especially in the LEGS. History of present illness: SEE ABOVE. Past History Past Medical History: anemia Social history: single Family history: no significant family history Medications and Allergies Allergies Allergy/AdvReac Type Severity Reaction Status Date / Time morphine AdvReac Intermediate Nausea Verified 02/14/14 14:09 Home Medications Medication Instructions Recorded Confirmed Last Taken Type Folic Acid [Folvite] 1 mg PO QDAY #30 tablet 02/14/14 Unknown Rx Pantoprazole [Protonix TAB] 40 mg PO QDAY #30 tablet 02/20/14 Unknown Rx levoFLOXacin [Levaquin TAB] 750 mg PO QDAY #6 tablet 02/20/14 Unknown Rx metroNIDAZOLE [Flagyl TAB] 500 mg PO Q8HR #18 tablet 02/20/14 Unknown Rx oxyCODONE /ACETAMINOPHEN [Percocet 1 tab PO Q6HR PRN #20 tablet 02/20/14 Unknown Rx 5/325 mg] Active Meds: Active Medications Acetaminophen (Tylenol) 650 mg PO Q4H PRN PRN Reason: Pain MILD(1-3)/Fever >100.5/BECERRIL Acetaminophen/Hydrocodone Bitart ([place] 10/325) 1 each PO Q4H PRN PRN Reason: Pain, Moderate (4-6) Bisacodyl (Dulcolax) 10 mg [place] QDAY PRN PRN Reason: Constipation unrelieved by MOM Diphenhydramine HCl (Benadryl) 25 mg IV Q6H PRN PRN Reason: Itching Last Admin: 03/31/19 11:07 Dose: 25 mg Documented by: Enoxaparin Sodium (Lovenox) 40 mg SUB-Q QDAY [facility] Last Admin: 03/31/19 09:06 Dose: 40 mg Documented by: Folic Acid (Folvite) 1 mg PO QDAY [facility] Last Admin: 03/31/19 09:06 Dose: 1 mg Documented by: Hydromorphone HCl (Dilaudid) 1 mg IV Q3H PRN PRN Reason: Pain , Severe (7-10) Last Admin: 03/31/19 09:04 Dose: 1 mg Documented by: Dextrose/Sodium Chloride (D5ns) 1,000 mls @ 125 mls/hr IV DIRECT [facility] Last Admin: 03/31/19 04:35 Dose: 125 mls/hr Documented by: Levofloxacin/Dextrose (Levaquin 750mg/150ml) 750 mg in 150 mls @ 100 mls/hr IV Q24HR [facility]; Protocol Last Admin: 03/31/19 09:06 Dose: 100 mls/hr Documented by: Ketorolac Tromethamine (Toradol) 10 mg PO Q6H PRN PRN Reason: Pain, Mild (1-3) Stop: 04/02/19 22:57 Last Admin: 03/29/19 05:59 Dose: 10 mg Documented by: Magnesium Hydroxide (Milk Of Magnesia) 30 ml PO Q4H PRN PRN Reason: Constipation Multivitamins (Theragran Tab) 1 each PO QDAY [facility] Last Admin: 03/31/19 09:07 Dose: 1 each Documented by: Ondansetron HCl (Zofran) 4 mg IV Q8H PRN PRN Reason: Nausea And Vomiting Oxycodone/Acetaminophen (Percocet 5/325) 1 tab PO Q6H PRN PRN Reason: Pain, Moderate (4-6) Last Admin: 03/29/19 22:05 Dose: 1 tab Documented by: Pantoprazole Sodium (Protonix) 40 mg PO QDAY [facility] Last Admin: 03/31/19 09:06 Dose: 40 mg Documented by: Senna (Senokot) 17.2 mg PO QHS [facility] Last Admin: 03/30/19 21:19 Dose: 17.2 mg Documented by: Sodium Chloride (Sodium Chloride Flush Syringe 10 Ml) 10 ml IV BID [facility] Last Admin: 03/31/19 11:08 Dose: 10 ml Documented by: Sodium Chloride (Sodium Chloride Flush Syringe 10 Ml) 10 ml IV PRN PRN PRN Reason: LINE FLUSH Review of Systems Constitutional: chronic pain Breasts: deferred Exam - Constitutional Vitals: Temp Pulse Resp BP Pulse Ox 98.0 F 73 16 104/67 95 05/27/19 04:51 03/31/19 04:51 03/31/19 04:54 03/31/19 04:51 03/31/19 04:51 General appearance: Present: mild distress, well-nourished - EENT Eyes: Present: PERRL ENT: hearing intact, clear oral mucosa - Neck Neck: Present: supple, normal ROM - Respiratory Respiratory effort: normal Respiratory: bilateral: CTA - Cardiovascular Heart Sounds: Present: S1 & S2. Absent: rub, click - Extremities Extremities: pulses symmetrical, No edema Peripheral Pulses: within normal limits - Abdominal General gastrointestinal: Present: soft, non-tender, non-distended, normal bowel sounds Female genitourinary: Present: deferred - Rectal Rectal Exam: deferred - Integumentary Integumentary: Present: clear, warm, dry - Musculoskeletal Musculoskeletal: gait normal, strength equal bilaterally - Psychiatric Psychiatric: appropriate mood/affect, intact judgment & insight - Neurologic Neurologic: CNII-XII intact, moves all extremities Results - Labs CBC & Chem 7: 03/31/19 08:50 03/30/19 06:28 Labs: Abnormal lab results 03/31/19 03/31/19 Range/Units 08:50 08:50 RBC 2.17 L (3.65-5.03) M/mm3 Hgb 8.0 L (10.1-14.3) gm/dl Hct 23.3 L (30.3-42.9) % MCV 108 H (79-97) fl MCH 37 H (28-32) pg MCHC 35 H (30-34) % RDW 18.1 H (13.2-15.2) % Plt Count 627 H (140-440) K/mm3 Seg Neuts % (Manual) 34.0 L (40.0-70.0) % Lymphocytes % (Manual) 53.0 H (13.4-35.0) % Eosinophils % (Manual) 7.0 H (0.0-4.3) % Nucleated RBC % 11.0 H (0.0-0.9) % Seg Neutrophils # Man 0.0 L (1.8-7.7) K/mm3 Lymphocytes # (Manual) 0.0 L (1.2-5.4) K/mm3 Percent Retic 12.01 H (0.78-2.58) % Lactate Dehydrogenase 201 H (91-180) units/L Assessment and Plan - Patient Problems (1) Sickle cell anemia with crisis Current Visit: Yes Status: Chronic Plan to address problem: Monitor labs , and adjust, as needed. (2) Dehydration Current Visit: No Status: Acute Plan to address problem: same hydration. (3) Dehydration Current Visit: Yes Status: Acute Plan to address problem: Hydration.
[2019-03-31] MEDS: SENOKOT PO SCH (22:20)
[2019-04-01] MEDS: DILAUDID IV PRN ×6 (01:36→21:10)
[2019-04-01] MEDS: BENADRYL IV PRN ×4 (01:37→21:11)
[2019-04-01] MEDS: SODIUM CHLORIDE FLUSH SYRINGE 10 ML IV PRN ×2 (01:39→05:00)
[2019-04-01] MEDS: D5NS 1,000 ML IV SCH ×2 (06:34→18:11)
[2019-04-01 07:49] LABS: Basophils # (Auto) 0.2 K/mm3 (0.0-0.1); Basophils % (Auto) 2.3 % (0.0-1.8); Eosinophils # (Auto) 0.9 K/mm3 (0.0-0.4); Eosinophils % (Auto) 9.6 % (0.0-4.3); Hematocrit 25.6 % (30.3-42.9); Hemoglobin 8.6 gm/dl (10.1-14.3); Lymphocytes # (Auto) 3.4 K/mm3 (1.2-5.4); Lymphocytes % (Auto) 36.9 % (13.4-35.0); Mean Corpuscular HGB Conc 34 % (30-34); Mean Corpuscular Volume 110 fl (79-97); Monocytes # (Auto) 0.8 K/mm3 (0.0-0.8); Monocytes % (Auto) 8.4 % (0.0-7.3); Platelet Count 656 K/mm3 (140-440); Red Blood Count 2.33 M/mm3 (3.65-5.03); Red Cell Distribution Width 18.5 % (13.2-15.2)
[2019-04-01] MEDS: LEVAQUIN 750MG/150ML 750 MG/150 ML BAG IV SCH (09:26)
[2019-04-01] MEDS: FOLVITE PO SCH (09:27)
[2019-04-01] MEDS: PROTONIX PO SCH (09:27)
[2019-04-01] MEDS: THERAGRAN Tab PO SCH (09:27)
[2019-04-01] MEDS: LOVENOX SUB-Q SCH (09:27)
[2019-04-01] MEDS: SODIUM CHLORIDE FLUSH SYRINGE 10 ML IV SCH ×2 (09:33→21:10)
[2019-04-01] MEDS: SENOKOT PO SCH (21:10)
--- NOTE | 2019-04-01 23:08 | Progress Note ---
Assessment and Plan - Patient Problems (1) Sickle cell anemia with crisis Current Visit: Yes Status: Chronic Plan to address problem: Monitor labs , and adjust, as needed. (2) Dehydration Current Visit: No Status: Acute Plan to address problem: same hydration. (3) Dehydration Current Visit: Yes Status: Acute Plan to address problem: Hydration. Subjective Date of service: 04/01/19 Interval history: Patient seen/examined, resting in bed, labs reviewed, pain better , will monitor retic count,and plan d/c accordingly. Objective - Constitutional Vitals: Vital Signs - 12hr 04/01/19 04/01/19 04/01/19 11:52 17:31 21:10 Temperature 97.2 F L 97.5 F L Pulse Rate 73 72 Respiratory 20 20 17 Rate Blood Pressure 111/64 115/71 Blood Pressure [Left] O2 Sat by Pulse 96 93 Oximetry 04/01/19 22:52 Temperature 98.5 F Pulse Rate 72 Respiratory 16 Rate Blood Pressure Blood Pressure 112/56 [Left] O2 Sat by Pulse 96 Oximetry General appearance: Present: mild distress, well-nourished - EENT Eyes: PERRL, EOM intact ENT: hearing intact, clear oral mucosa Ears: bilateral: normal - Neck Neck: supple, normal ROM - Respiratory Respiratory effort: normal Respiratory: bilateral: CTA - Breasts Breasts: deferred - Cardiovascular Rhythm: regular Heart Sounds: Present: S1 & S2. Absent: gallop, rub Extremities: pulses intact, No edema, normal color, Full ROM - Gastrointestinal General gastrointestinal: Present: soft, non-tender, non-distended, normal bowel sounds Rectal Exam: deferred - Genitourinary Female genitourinary: deferred - Integumentary Integumentary: clear, warm, dry - Musculoskeletal Musculoskeletal: 1, strength equal bilaterally - Neurologic Neurologic: moves all extremities - Psychiatric Psychiatric: memory intact, appropriate mood/affect, intact judgment & insight - Labs CBC & Chem 7: 04/01/19 07:06 03/30/19 06:28 Labs: Abnormal lab results 04/01/19 04/01/19 Range/Units 07:06 07:06 RBC 2.33 L (3.65-5.03) M/mm3 Hgb 8.6 L (10.1-14.3) gm/dl Hct 25.6 L (30.3-42.9) % MCV 110 H (79-97) fl MCH 37 H (28-32) pg RDW 18.5 H (13.2-15.2) % Plt Count 656 H (140-440) K/mm3 Lymph % (Auto) 36.9 H (13.4-35.0) % [place] % (Auto) 8.4 H (0.0-7.3) % Eos % (Auto) 9.6 H (0.0-4.3) % Baso % (Auto) 2.3 H (0.0-1.8) % Eos # 0.9 H (0.0-0.4) K/mm3 Baso # 0.2 H (0.0-0.1) K/mm3 Percent Retic 10.41 H (0.78-2.58) % Lactate Dehydrogenase 239 H (91-180) units/L Medications & Allergies - Medications Allergies/Adverse Reactions: Allergies morphine Adverse Reaction (Intermediate, Verified 02/14/14 14:09) Nausea only has nausea with oral morphine per patient Home Medications: Home Medications Medication Instructions Recorded Confirmed Last Taken Type Folic Acid [Folvite] 1 mg PO QDAY #30 tablet 02/14/14 04/01/19 Unknown Rx levoFLOXacin [Levaquin TAB] 750 mg PO QDAY #6 tablet 02/20/14 04/01/19 Unknown Rx oxyCODONE /ACETAMINOPHEN [Percocet 1 tab PO Q6HR PRN #20 tablet 02/20/14 0 04/01/19 Unknown Rx 5/325 mg] Active Medications: Generic Name Dose Route Start Last Admin Trade Name Tena PRN Reason Stop Dose Admin Acetaminophen 650 mg 03/28/19 18:16 Tylenol PO Q4H PRN Pain MILD(1-3)/Fever >100.5/BECERRIL Acetaminophen/Hydrocodone Bitart 1 each 03/30/19 12:51 [place] 10/325 PO Q4H PRN Pain, Moderate (4-6) Bisacodyl 10 mg 03/30/19 12:51 Dulcolax [place] QDAY PRN Constipation unrelieved by MOM Diphenhydramine HCl 25 mg 03/29/19 13:00 04/01/19 21:11 Benadryl IV 25 mg Q6H PRN Administration Itching Enoxaparin Sodium 40 mg 03/28/19 19:00 04/01/19 09:27 Lovenox SUB-Q 40 mg QDAY APOLLO Administration Folic Acid 1 mg 03/28/19 19:00 04/01/19 09:27 Folvite PO 1 mg QDAY APOLLO Administration Hydromorphone HCl 2 mg 03/31/19 14:24 04/01/19 21:10 Dilaudid IV 2 mg Q3H PRN Administration Pain , Severe (7-10) Dextrose/Sodium Chloride 1,000 mls @ 125 mls/hr 03/28/19 19:00 04/01/19 18:11 D5ns IV 125 mls/hr DIRECT APOLLO Administration Levofloxacin 750 mg 04/02/19 10:00 Levaquin PO DAILY APOLLO Magnesium Hydroxide 30 ml 03/30/19 12:51 Milk Of Magnesia PO Q4H PRN Constipation Multivitamins 1 each 03/30/19 14:00 04/01/19 09:27 Theragran Tab PO 1 each QDAY APOLLO Administration Ondansetron HCl 4 mg 03/28/19 18:16 Zofran IV Q8H PRN Nausea And Vomiting Oxycodone/Acetaminophen 1 tab 03/28/19 18:16 03/29/19 22:05 Percocet 5/325 PO 1 tab Q6H PRN Administration Pain, Moderate (4-6) Pantoprazole Sodium 40 mg 03/28/19 19:00 04/01/19 09:27 Protonix PO 40 mg QDAY APOLLO Administration Senna 17.2 mg 03/30/19 22:00 04/01/19 21:10 Senokot PO Not Given QHS APOLLO Sodium Chloride 10 ml 03/28/19 22:00 04/01/19 21:10 Sodium Chloride Flush Syringe 10 Ml IV 10 ml BID APOLLO Administration Sodium Chloride 10 ml 03/28/19 18:16 04/01/19 05:00 Sodium Chloride Flush Syringe 10 Ml IV 10 ml PRN PRN Administration LINE FLUSH
[2019-04-02] MEDS: DILAUDID IV PRN ×8 (00:11→21:25)
[2019-04-02] MEDS: D5NS 1,000 ML IV SCH ×3 (02:02→15:21)
[2019-04-02] MEDS: BENADRYL IV PRN ×4 (03:27→21:26)
[2019-04-02 07:13] LABS: Basophils # (Auto) 0.1 K/mm3 (0.0-0.1); Basophils % (Auto) 1.3 % (0.0-1.8); Hematocrit 25.1 % (30.3-42.9); Hemoglobin 8.5 gm/dl (10.1-14.3); Lymphocytes # (Auto) 3.2 K/mm3 (1.2-5.4); Lymphocytes % (Auto) 36.3 % (13.4-35.0); Mean Corpuscular HGB Conc 34 % (30-34); Mean Corpuscular Volume 108 fl (79-97); Monocytes # (Auto) 0.7 K/mm3 (0.0-0.8); Monocytes % (Auto) 7.8 % (0.0-7.3); Platelet Count 604 K/mm3 (140-440); Red Blood Count 2.31 M/mm3 (3.65-5.03)
[2019-04-02] MEDS: LEVAQUIN PO SCH (09:27)
[2019-04-02] MEDS: PROTONIX PO SCH (09:27)
[2019-04-02] MEDS: LOVENOX SUB-Q SCH (09:27)
[2019-04-02] MEDS: THERAGRAN Tab PO SCH (09:27)
[2019-04-02] MEDS: FOLVITE PO SCH (09:27)
[2019-04-02] MEDS: SODIUM CHLORIDE FLUSH SYRINGE 10 ML IV SCH ×2 (09:29→21:24)
[2019-04-02] MEDS: SENOKOT PO SCH (21:27)
--- NOTE | 2019-04-02 22:40 | Progress Note ---
Assessment and Plan - Patient Problems (1) Sickle cell anemia with crisis Current Visit: Yes Status: Chronic Plan to address problem: Monitor labs , and adjust, as needed. (2) Dehydration Current Visit: No Status: Acute Plan to address problem: same hydration. (3) Dehydration Current Visit: Yes Status: Acute Plan to address problem: Hydration. Subjective Date of service: 04/02/19 Interval history: Patient seen/examined, resting in bed, labs reviewed, pain better , will monitor retic count,and plan d/c accordingly. Patient seen/examined, resting in bed, no new issues at this time.labs reviewed. will plan d/c . Objective - Constitutional Vitals: Vital Signs - 12hr 04/02/19 04/02/19 11:45 16:55 Temperature 98.5 F 98.0 F Pulse Rate 71 71 Respiratory 20 18 Rate Blood Pressure 103/59 90/44 O2 Sat by Pulse 100 100 Oximetry General appearance: Present: no acute distress, well-nourished - EENT Eyes: PERRL, EOM intact ENT: hearing intact, clear oral mucosa Ears: bilateral: normal - Neck Neck: supple, normal ROM - Respiratory Respiratory effort: normal Respiratory: bilateral: CTA - Breasts Breasts: deferred - Cardiovascular Rhythm: regular Heart Sounds: Present: S1 & S2. Absent: gallop, rub Extremities: pulses intact, No edema, normal color, Full ROM - Gastrointestinal General gastrointestinal: Present: soft, non-tender, non-distended, normal bowel sounds Rectal Exam: deferred - Genitourinary Female genitourinary: deferred - Integumentary Integumentary: clear, warm, dry - Musculoskeletal Musculoskeletal: 1, strength equal bilaterally - Neurologic Neurologic: moves all extremities - Psychiatric Psychiatric: memory intact, appropriate mood/affect, intact judgment & insight - Labs CBC & Chem 7: 04/02/19 06:08 03/30/19 06:28 Labs: Abnormal lab results 04/02/19 04/02/19 Range/Units 06:08 06:08 RBC 2.31 L (3.65-5.03) M/mm3 Hgb 8.5 L (10.1-14.3) gm/dl Hct 25.1 L (30.3-42.9) % MCV 108 H (79-97) fl MCH 37 H (28-32) pg RDW 17.0 H (13.2-15.2) % Plt Count 604 H (140-440) K/mm3 Lymph % (Auto) 36.3 H (13.4-35.0) % [place] % (Auto) 7.8 H (0.0-7.3) % Eos % (Auto) 11.0 H (0.0-4.3) % Eos # 1.0 H (0.0-0.4) K/mm3 Percent Retic 9.01 H (0.78-2.58) % Lactate Dehydrogenase 298 H (91-180) units/L Medications & Allergies - Medications Allergies/Adverse Reactions: Allergies morphine Adverse Reaction (Intermediate, Verified 02/14/14 14:09) Nausea only has nausea with oral morphine per patient Home Medications: Home Medications Medication Instructions Recorded Confirmed Last Taken Type Folic Acid [Folvite] 1 mg PO QDAY #30 tablet 02/14/14 04/01/19 Unknown Rx levoFLOXacin [Levaquin TAB] 750 mg PO QDAY #6 tablet 02/20/14 04/01/19 Unknown Rx oxyCODONE /ACETAMINOPHEN [Percocet 1 tab PO Q6HR PRN #20 tablet 02/20/14 04/01/19 Unknown Rx 5/325 mg] Active Medications: Generic Name Dose Route Start Last Admin Trade Name Freq PRN Reason Stop Dose Admin Acetaminophen 650 mg 03/28/19 18:16 Tylenol PO Q4H PRN Pain MILD(1-3)/Fever >100.5/BECERRIL Acetaminophen/Hydrocodone Bitart 1 each 03/30/19 12:51 [place] 10/325 PO Q4H PRN Pain, Moderate (4-6) Bisacodyl 10 mg 03/30/19 12:51 Dulcolax [place] QDAY PRN Constipation unrelieved by MOM Diphenhydramine HCl 25 mg 03/29/19 13:00 04/02/19 21:26 Benadryl IV 25 mg Q6H PRN Administration Itching Enoxaparin Sodium 40 mg 03/28/19 19:00 04/02/19 09:27 Lovenox SUB-Q 40 mg QDAY APOLLO Administration Folic Acid 1 mg 03/28/19 19:00 04/02/19 09:27 Folvite PO 1 mg QDAY APOLLO Administration Hydromorphone HCl 2 mg 03/31/19 14:24 04/02/19 21:25 Dilaudid IV 2 mg Q3H PRN Administration Pain , Severe (7-10) Dextrose/Sodium Chloride 1,000 mls @ 125 mls/hr 03/28/19 19:00 04/02/19 15:21 D5ns IV 125 mls/hr DIRECT APOLLO Administration Levofloxacin 750 mg 04/02/19 10:00 04/02/19 09:27 Levaquin PO 750 mg DAILY APOLLO Administration Magnesium Hydroxide 30 ml 03/30/19 12:51 Milk Of Magnesia PO Q4H PRN Constipation Multivitamins 1 each 03/30/19 14:00 04/02/19 09:27 Theragran Tab PO 1 each QDAY APOLLO Administration Ondansetron HCl 4 mg 03/28/19 18:16 Zofran IV Q8H PRN Nausea And Vomiting Oxycodone/Acetaminophen 1 tab 03/28/19 18:16 03/29/19 22:05 Percocet 5/325 PO 1 tab Q6H PRN Administration Pain, Moderate (4-6) Pantoprazole Sodium 40 mg 03/28/19 19:00 04/02/19 09:27 Protonix PO 40 mg QDAY APOLLO Administration Senna 17.2 mg 03/30/19 22:00 04/02/19 21:27 Senokot PO 17.2 mg QHS APOLLO Administration Sodium Chloride 10 ml 03/28/19 22:00 04/02/19 21:24 Sodium Chloride Flush Syringe 10 Ml IV 10 ml BID APOLLO Administration Sodium Chloride 10 ml 03/28/19 18:16 04/01/19 05:00 Sodium Chloride Flush Syringe 10 Ml IV 10 ml PRN PRN Administration LINE FLUSH
[2019-04-03] MEDS: DILAUDID IV PRN ×6 (00:43→18:02)
[2019-04-03] MEDS: D5NS 1,000 ML IV SCH ×3 (00:46→16:44)
[2019-04-03] MEDS: BENADRYL IV PRN ×3 (03:40→14:28)
[2019-04-03] MEDS: LOVENOX SUB-Q SCH (09:09)
[2019-04-03] MEDS: THERAGRAN Tab PO SCH (09:10)
[2019-04-03] MEDS: FOLVITE PO SCH (09:10)
[2019-04-03] MEDS: PROTONIX PO SCH (09:10)
[2019-04-03] MEDS: SODIUM CHLORIDE FLUSH SYRINGE 10 ML IV SCH (09:10)
[2019-04-03] MEDS: LEVAQUIN PO SCH (09:10)
[2019-04-03 18:57] VITALS: BP 114/45
--- NOTE | 2019-04-03 20:11 | Discharge Summary ---
Providers - Providers Date of Admission: 03/28/19 18:16 Date of discharge: 04/03/19 Attending physician: ALAINA LUA 03/30/19 12:51 Consult to Physician [CONS] Routine Comment: Consulting Provider: ALAINA LUA Physician Instructions: Reason For Exam: sickle cell crisis Primary care physician: ALAINA LUA Hospitalization Reason for admission: ScD/Pain crisis. Condition: Stable Hospital course: Patient presented back to the ER, with Same CC, and was readmitted , treated with hydration, pain control. She did fairly well, and tolerated her treatment.She is seen/examined today, and found to be stable, denied any problems so far., and will be D/C home now. Disposition: TO HOME OR SELFCARE - Discharge Diagnoses (1) Sickle cell anemia with crisis Status: Chronic (2) Dehydration Status: Resolved (3) Dehydration Status: Resolved Core Measure Documentation - Palliative Care Palliative Care/ Comfort Measures: Not Applicable - Core Measures Any of the following diagnoses?: none Exam - Constitutional Vitals: Temp Pulse Resp BP Pulse Ox 98.3 F 84 18 114/45 100 04/03/19 16:15 04/03/19 16:15 04/03/19 16:15 04/03/19 17:00 04/03/19 16:15 General appearance: Present: no acute distress, well-nourished - EENT Eyes: Present: PERRL ENT: hearing intact, clear oral mucosa - Neck Neck: Present: supple, normal ROM - Respiratory Respiratory effort: normal Respiratory: bilateral: CTA - Cardiovascular Heart Sounds: Present: S1 & S2. Absent: rub, click - Extremities Extremities: pulses symmetrical, No edema Peripheral Pulses: within normal limits - Abdominal General gastrointestinal: Present: soft, non-tender, non-distended, normal bowel sounds Female genitourinary: Present: deferred - Rectal Rectal Exam: deferred - Integumentary Integumentary: Present: clear, warm, dry - Musculoskeletal Musculoskeletal: gait normal, strength equal bilaterally - Psychiatric Psychiatric: appropriate mood/affect, intact judgment & insight - Neurologic Neurologic: CNII-XII intact, moves all extremities Plan Activity: no restrictions Diet: regular Follow up with: ALAINA LUA DO [Primary Care Provider] - 7 Days
== END 2019-04-03 21:05 | disposition home or self-care (01) | DRG 812 ==
LOC: ED 14:58 → 3A 18:16
PROVIDERS: ADMIT Internal Medicine; ATTEND Internal Medicine Hematology & Oncology
PROC: 30233N1 Transfusion of Nonautologous Red Blood Cells into Peripheral Vein, Percutaneous Approach (ICD-10-PCS; principal; 2019-03-29)
DX: D57.00 Hb-SS disease with crisis, unspecified (principal); R65.10 Systemic inflammatory response syndrome (SIRS) of non-infectious origin without acute organ dysfunction; D64.9 Anemia, unspecified; E86.0 Dehydration; D72.829 Elevated white blood cell count, unspecified; G89.29 Other chronic pain; R70.1 Abnormal plasma viscosity; Z79.899 Other long term (current) drug therapy; Z88.5 Allergy status to narcotic agent; Z90.81 Acquired absence of spleen; Z90.49 Acquired absence of other specified parts of digestive tract
CPT/HCPCS: 36415; 71046; 80048; 80053; 81001; 82607; 82747; 83036; 83550; 83615; 84702; 85007; 85025; 85045; 86850; 86900; 86901; 86920; 87040; 87086; 87116; 96365; 96375; G0378; J0696; J1170; J1200; J1644; J1650; J1885; J1956; J2405; J7040; J7042; P9016

== ENCOUNTER 2019-06-07 18:45 | Inpatient (IN) | payer MEDICAID ==
--- NOTE | 2019-06-07 18:50 | Event Note ---
ED Screening Note Date of service: 06/07/19 Time: 18:46 ED Screening Note: This is a 23 y.o. F. with generalized pain since last night. PMH Sickle cell This initial assessment/diagnostic orders/clinical plan/treatment(s) is/are subject to change based on patients health status, clinical progression and re- assessment by fellow clinical providers in the ED. Further treatment and workup at subsequent clinical providers discretion. Patient/guardian urged not to elope from the ED as their condition may be serious if not clinically assessed and managed. Initial orders include: Labs
[2019-06-07 19:19] LABS: Hematocrit 25.1 % (30.3-42.9); Mean Corpuscular HGB Conc 36 % (30-34); Platelet Count 598 K/mm3 (140-440); Red Blood Count 2.28 M/mm3 (3.65-5.03)
[2019-06-07 19:28] LABS: Mean Corpuscular Volume 110 fl (79-97)
[2019-06-07 19:38] LABS: Alanine Aminotransferase 35 units/L (7-56); Albumin 4.6 g/dL (3.9-5); BUN/Creatinine Ratio 30; Blood Urea Nitrogen 6 mg/dL (7-17); Calcium 9.3 mg/dL (8.4-10.2); Hemolysis Index 58
[2019-06-07] MEDS ORDERED: BENADRYL PO ONE ×2 (20:06→20:11)
[2019-06-07] MEDS ORDERED: DILAUDID ONE ×2 (20:07)
[2019-06-07] MEDS ORDERED: DILAUDID IM ONE (20:11)
[2019-06-07 20:20] LABS: Macrocytosis 1+; Total Cells Counted 100
[2019-06-07 20:21] LABS: Sickle Cells 1+; Spherocytes 1+
[2019-06-07] MEDS ORDERED: NACL 0.9% 1000 ML 1,000 ML IV ONE (20:43)
[2019-06-07] MEDS ORDERED: TORADOL IV ONE (20:44)
--- NOTE | 2019-06-07 20:53 | Emergency Department Report ---
ED General Adult HPI - General Chief complaint: Sickle Cell Crisis Stated complaint: SICKLE CELL CRISIS Time Seen by Provider: 06/07/19 18:46 Source: patient, family Mode of arrival: Wheelchair Limitations: No Limitations - History of Present Illness Initial comments: h/o sickle cell, last admission in march, presents to ER with diffuse body aches, worse in back and legs for the past three days worse today. Rates symptoms as severe in severity. Denies any alleviating or exacerbating factors. no nausea or vomiting. no fever, chills or night sweats. -: Gradual, days(s) Location: head, chest, back, upper extremity, lower extremity Radiation: non-radiation Severity scale (0 -10): 10 Quality: stabbing Consistency: constant Improves with: none Worsens with: none Associated Symptoms: denies other symptoms - Related Data Previous Rx's Medication Instructions Recorded Last Taken Type Folic Acid [Folvite] 1 mg PO QDAY #30 tablet 02/14/14 Unknown Rx levoFLOXacin [Levaquin TAB] 750 mg PO QDAY #6 tablet 02/20/14 Unknown Rx oxyCODONE /ACETAMINOPHEN [Percocet 1 tab PO Q6HR PRN #20 tablet 02/20/14 Unknown Rx 5/325 mg] Allergies Allergy/AdvReac Type Severity Reaction Status Date / Time morphine AdvReac Intermediate Nausea Verified 02/14/14 14:09 ED Review of Systems ROS: Stated complaint: SICKLE CELL CRISIS Other details as noted in HPI Comment: All other systems reviewed and negative Eyes: denies: eye pain ENT: denies: ear pain Respiratory: denies: cough Cardiovascular: denies: chest pain Gastrointestinal: denies: abdominal pain Genitourinary: denies: urgency Musculoskeletal: myalgia Neurological: denies: headache ED Past Medical Hx - Past Medical History Hx Congestive Heart Failure: No Hx Diabetes: No Hx Deep Vein Thrombosis: Yes (AMANDA) Hx Sickle Cell Disease: Yes Hx Asthma: No Hx COPD: No Hx HIV: No - Surgical History Hx Cholecystectomy: Yes Additional Surgical History: spleen removed, and gallbaddler - Social History Smoking Status: Never Smoker Substance Use Type: Marijuana - Medications Home Medications: Home Medications Medication Instructions Recorded Confirmed Last Taken Type Folic Acid [Folvite] 1 mg PO QDAY #30 tablet 02/14/14 04/01/19 Unknown Rx levoFLOXacin [Levaquin TAB] 750 mg PO QDAY #6 tablet 02/20/14 04/01/19 Unknown Rx oxyCODONE /ACETAMINOPHEN [Percocet 1 tab PO Q6HR PRN #20 tablet 02/20/14 04/01/19 Unknown Rx 5/325 mg] ED Physical Exam - General Limitations: No Limitations General appearance: alert, in no apparent distress - Head Head exam: Present: atraumatic, normocephalic - Eye Eye exam: Present: normal appearance, PERRL, EOMI Pupils: Present: normal accommodation - ENT ENT exam: Present: normal exam, normal orophraynx - Neck Neck exam: Present: normal inspection - Respiratory Respiratory exam: Present: normal lung sounds bilaterally - Cardiovascular Cardiovascular Exam: Present: regular rate, normal rhythm - GI/Abdominal GI/Abdominal exam: Present: soft - Extremities Exam Extremities exam: Present: normal inspection - Back Exam Back exam: Present: normal inspection - Neurological Exam Neurological exam: Present: alert, oriented X3, CN II-XII intact - Psychiatric Psychiatric exam: Present: normal affect, normal mood - Skin Skin exam: Present: warm ED Course Vital Signs 06/07/19 06/07/19 18:47 20:12 Temperature 98.9 F Pulse Rate 128 H Respiratory 20 20 Rate Blood Pressure 128/90 O2 Sat by Pulse 95 Oximetry - Reevaluation(s) Reevaluation #1: 06/07/19 20:52 received 3mg im dilaudid, 25mg po benadryl, 30mg iv toradol and ns 1 liter. ED Medical Decision Making - Lab Data Result diagrams: 06/07/19 18:59 06/07/19 18:59 - Medical Decision Making received 3mg im dilaudid, 25mg po benadryl, 30mg iv toradol and ns 1 liter. continue to have 10/10 pain, will admit for further evaluation. has elevated wbc, will get chest xray, blood cx, ua - Differential Diagnosis sickle cell crisis,uti, Critical care attestation.: If time is entered above; I have spent that time in minutes in the direct care of this critically ill patient, excluding procedure time. ED Disposition Clinical Impression: Sickle cell anemia with crisis Disposition: OP ADMIT IP TO THIS HOSP Is pt being admited?: Yes Does the pt Need Aspirin: No Condition: Stable Referrals: SIMONA PATEL MD [Primary Care Provider] - 3-5 Days
--- NOTE | 2019-06-07 21:39 | XRay Report ---
CHEST 1 VIEW 06/07/2019 9:14 PM INDICATION / CLINICAL INFORMATION: leuk. COMPARISON: Chest x-ray 03/27/2019 FINDINGS: SUPPORT DEVICES: None. HEART / MEDIASTINUM: No significant abnormality. LUNGS / PLEURA: No significant pulmonary or pleural abnormality. No pneumothorax. ADDITIONAL FINDINGS: No significant additional findings. IMPRESSION: 1. No acute findings. Signer Name: Guillermo Iraheta MD Signed: 06/07/2019 9:35 PM Workstation Name: [id number]
[2019-06-07] MEDS ORDERED: ROXICODONE PO ONE (22:32)
[2019-06-07] MEDS: BENADRYL IV PRN (22:43)
[2019-06-07] MEDS: DILAUDID IV PRN (22:43)
[2019-06-08] MEDS: TORADOL IV PRN ×3 (00:14→17:11)
[2019-06-08] MEDS: DILAUDID IV PRN ×7 (01:47→21:57)
[2019-06-08] MEDS ORDERED: D5NS 0.2% 1,000 ML IV SCH (02:00)
[2019-06-08 02:37] LABS: Bilirubin,Urine NEG (Negative); Blood,Urine NEG (Negative); Color,Urine Amber (Yellow); Mucus,Urine FEW /HPF; Protein,Urine <15 mg/dL mg/dL (Negative)
[2019-06-08] MEDS: FLEXERIL PO PRN ×2 (04:01→17:11)
[2019-06-08] MEDS: PERCOCET 5/325 PO PRN (04:01)
[2019-06-08] MEDS: ROXICODONE PO PRN (04:02)
[2019-06-08] MEDS: BENADRYL IV PRN ×3 (05:15→18:45)
--- NOTE | 2019-06-08 15:40 | History and Physical Report ---
History of Present Illness Date of examination: 06/08/19 Date of admission: 06/07/19 21:23 Chief complaint: Diffuse joint pain.easy fatigue History of present illness: Patient seen/examined, resting in bed, records reviewed, case d/w patient.she presented to the ED, with CC of diffuse joint pain, unable to control, her sxs with her home meds. W/UP in the ED revealed elevated WBC, and retic count. patient admitted for sxs management , and control.She will be hydrated , and pain control, cultures, start on empiric abx until cultures back. Medications and Allergies Allergies Allergy/AdvReac Type Severity Reaction Status Date / Time morphine AdvReac Intermediate Nausea Verified 02/14/14 14:09 Home Medications Medication Instructions Recorded Confirmed Last Taken Type Folic Acid [Folvite] 1 mg PO QDAY #30 tablet 02/14/14 06/07/19 Unknown Rx Oxycodone HCl/Acetaminophen 1 each PO Q6HR PRN 06/07/19 06/07/19 Unknown History [Percocet 10/325 mg] Active Meds: Active Medications Cyclobenzaprine HCl (Flexeril) 5 mg PO Q8H PRN PRN Reason: Muscle Spasm Last Admin: 06/08/19 04:01 Dose: 5 mg Documented by: Diphenhydramine HCl (Benadryl) 25 mg IV Q6H PRN PRN Reason: Itching Last Admin: 06/08/19 11:58 Dose: 25 mg Documented by: Hydromorphone HCl (Dilaudid) 2 mg IV Q3H PRN PRN Reason: Pain , Severe (7-10) Last Admin: 06/08/19 14:51 Dose: 2 mg Documented by: Dextrose/Sodium Chloride (D5ns 0.2%) 1,000 mls @ 175 mls/hr IV DIRECT APOLLO Last Admin: 06/08/19 14:49 Dose: 175 mls/hr Documented by: Ketorolac Tromethamine (Toradol) 30 mg IV Q6H PRN PRN Reason: Pain , Severe (7-10) Stop: 06/12/19 22:59 Last Admin: 06/08/19 10:55 Dose: 30 mg Documented by: Oxycodone HCl (Roxicodone) 5 mg PO Q6H PRN PRN Reason: Pain , Severe (7-10) Last Admin: 06/08/19 04:02 Dose: 5 mg Documented by: Oxycodone/Acetaminophen (Percocet 5/325) 1 tab PO Q6H PRN PRN Reason: Pain, Moderate (4-6) Last Admin: 06/08/19 04:01 Dose: 1 tab Documented by: Review of Systems Constitutional: chronic pain Breasts: deferred Musculoskeletal: low back pain Exam - Constitutional Vitals: Temp Pulse Resp BP Pulse Ox 100.8 F H 123 H 12 112/59 93 06/08/19 11:46 06/08/19 11:46 06/08/19 11:46 06/08/19 11:46 06/08/19 11:46 General appearance: Present: mild distress, well-nourished - EENT Eyes: Present: PERRL ENT: hearing intact, clear oral mucosa - Neck Neck: Present: supple, normal ROM - Respiratory Respiratory effort: normal Respiratory: bilateral: CTA - Cardiovascular Heart Sounds: Present: S1 & S2. Absent: rub, click - Extremities Extremities: pulses symmetrical, No edema Peripheral Pulses: within normal limits - Abdominal General gastrointestinal: Present: soft, non-tender, non-distended, normal bowel sounds Female genitourinary: Present: deferred - Rectal Rectal Exam: deferred - Integumentary Integumentary: Present: clear, warm, dry - Musculoskeletal Musculoskeletal: gait normal, strength equal bilaterally - Psychiatric Psychiatric: appropriate mood/affect, intact judgment & insight - Neurologic Neurologic: CNII-XII intact, moves all extremities Results - Labs CBC & Chem 7: 06/07/19 18:59 06/07/19 18:59 Labs: Abnormal lab results 06/07/19 06/07/19 Range/Units 18:59 18:59 WBC 23.6 H (4.5-11.0) K/mm3 RBC 2.28 L (3.65-5.03) M/mm3 Hgb 9.0 L (10.1-14.3) gm/dl Hct 25.1 L (30.3-42.9) % MCV 110 H (79-97) fl MCH 39 H (28-32) pg MCHC 36 H (30-34) % RDW 19.0 H (13.2-15.2) % Plt Count 598 H (140-440) K/mm3 Eosinophils % (Manual) 5.0 H (0.0-4.3) % Basophils % (Manual) 2.0 H (0.0-1.8) % Seg Neutrophils # Man 15.6 H (1.8-7.7) K/mm3 Monocytes # (Manual) 1.7 H (0.0-0.8) K/mm3 Eosinophils # (Manual) 1.2 H (0.0-0.4) K/mm3 Basophils # (Manual) 0.5 H (0.0-0.1) K/mm3 Percent Retic 11.93 H (0.78-2.58) % Carbon Dioxide 21 L (22-30) mmol/L BUN 6 L (7-17) mg/dL Creatinine 0.2 L (0.7-1.2) mg/dL Glucose 113 H (65-100) mg/dL Total Bilirubin 10.60 H (0.1-1.2) mg/dL Lipase 12 L (13-60) units/L Assessment and Plan - Patient Problems (1) Sickle cell anemia with crisis Current Visit: Yes Status: Chronic Plan to address problem: monitor labs prn, and adjust. (2) Generalized pain Current Visit: No Status: Acute Plan to address problem: pain control. (3) Leukocytosis, unspecified Current Visit: Yes Status: Acute Plan to address problem: cultures.
[2019-06-08] MEDS: ROCEPHIN/NS 1 GM/50 ML 1 GM/50 ML BAG IV SCH (17:12)
[2019-06-08] MEDS: TYLENOL PO PRN (17:53)
[2019-06-08] MEDS: D5NS 0.2% 1,000 ML IV SCH (21:57)
[2019-06-08] MEDS: HEPARIN SUB-Q SCH (21:58)
[2019-06-09] MEDS: FLEXERIL PO PRN ×2 (00:19→21:46)
[2019-06-09] MEDS: TORADOL IV PRN ×2 (00:19→06:48)
[2019-06-09] MEDS: DILAUDID IV PRN ×7 (03:02→23:33)
[2019-06-09] MEDS: BENADRYL IV PRN ×3 (03:02→17:47)
[2019-06-09] MEDS: D5NS 0.2% 1,000 ML IV SCH ×4 (03:02→20:47)
[2019-06-09 05:27] LABS: Basophils % (Auto) 0.3 % (0.0-1.8); Eosinophils # (Auto) 0.2 K/mm3 (0.0-0.4); Eosinophils % (Auto) 1.3 % (0.0-4.3); Hemoglobin 6.7 gm/dl (10.1-14.3); Lymphocytes # (Auto) 2.4 K/mm3 (1.2-5.4); Lymphocytes % (Auto) 14.4 % (13.4-35.0); Mean Corpuscular HGB Conc 35 % (30-34); Mean Corpuscular Volume 109 fl (79-97); Monocytes # (Auto) 1.5 K/mm3 (0.0-0.8); Monocytes % (Auto) 8.8 % (0.0-7.3); Platelet Count 332 K/mm3 (140-440); Red Blood Count 1.78 M/mm3 (3.65-5.03); Red Cell Distribution Width 17.8 % (13.2-15.2)
[2019-06-09 05:33] LABS: Hematocrit 19.4 % (30.3-42.9)
[2019-06-09 05:57] LABS: Iron 34 ug/dL (37-170); Total Iron Binding Capacity 131 mcg/dL (250-450)
[2019-06-09] MEDS ORDERED: NACL 0.9% 500 ML 500 ML IV ONE (06:23)
[2019-06-09] MEDS: ROCEPHIN/NS 1 GM/50 ML 1 GM/50 ML BAG IV SCH (10:26)
[2019-06-09] MEDS: FOLVITE PO SCH (10:27)
[2019-06-09] MEDS: HEPARIN SUB-Q SCH ×2 (10:27→21:46)
[2019-06-09] MEDS: TYLENOL PO PRN (14:52)
[2019-06-09] MEDS ORDERED: VANCOMYCIN/NS 1 GM/250 ML 1 GM/250 ML BAG IV ONE (16:06)
[2019-06-09] MEDS: VANCOMYCIN 1,500 MG in NACL 0.9% 500 ML 500 ML IV SCH (17:39)
--- NOTE | 2019-06-09 20:55 | Progress Note ---
Assessment and Plan - Patient Problems (1) Sickle cell anemia with crisis Current Visit: Yes Status: Chronic Plan to address problem: monitor labs prn, and adjust. (2) Generalized pain Current Visit: No Status: Acute Plan to address problem: pain control. (3) Leukocytosis, unspecified Current Visit: Yes Status: Acute Plan to address problem: cultures. (4) Fever Current Visit: Yes Status: Acute Plan to address problem: Continue with ABX, tylenol. (5) Sepsis Current Visit: Yes Status: Acute Plan to address problem: continue with ABX. Subjective Date of service: 06/09/19 Interval history: Patient seen/examined, resting in bed,. l;abs reviewed, she spiked fever Tm102 earlier today, All cultures still negative.Patient already on double IV ABX, until final culture resulted. Objective - Constitutional Vitals: Vital Signs - 12hr 06/09/19 06/09/19 06/09/19 11:21 11:22 11:55 Temperature 99.9 F H Pulse Rate 124 H Respiratory 16 Rate Blood Pressure 114/77 O2 Sat by Pulse 100 94 Oximetry 06/09/19 06/09/19 06/09/19 14:51 17:21 20:38 Temperature 102.9 F H 99.6 F Pulse Rate 114 H Respiratory 20 18 Rate Blood Pressure 105/58 O2 Sat by Pulse 98 Oximetry General appearance: Present: mild distress, well-nourished - EENT Eyes: PERRL, EOM intact ENT: hearing intact, clear oral mucosa Ears: bilateral: normal - Neck Neck: supple, normal ROM - Respiratory Respiratory effort: normal Respiratory: bilateral: CTA - Breasts Breasts: deferred - Cardiovascular Rhythm: regular Heart Sounds: Present: S1 & S2. Absent: gallop, rub Extremities: pulses intact, No edema, normal color, Full ROM - Gastrointestinal General gastrointestinal: Present: soft, non-tender, non-distended, normal bowel sounds Rectal Exam: deferred - Genitourinary Female genitourinary: deferred - Integumentary Integumentary: clear, warm, dry - Musculoskeletal Musculoskeletal: 1, strength equal bilaterally - Neurologic Neurologic: moves all extremities - Psychiatric Psychiatric: memory intact, appropriate mood/affect, intact judgment & insight - Labs CBC & Chem 7: 06/09/19 05:01 06/07/19 18:59 Labs: Abnormal lab results 06/09/19 06/09/19 06/09/19 Range/Units 05:01 05:01 05:01 WBC 16.7 H (4.5-11.0) K/mm3 RBC 1.78 L (3.65-5.03) M/mm3 Hgb 6.7 L (10.1-14.3) gm/dl Hct 19.4 L* (30.3-42.9) % MCV 109 H (79-97) fl MCH 38 H (28-32) pg MCHC 35 H (30-34) % RDW 17.8 H (13.2-15.2) % [place] % (Auto) 8.8 H (0.0-7.3) % [place] # 1.5 H (0.0-0.8) K/mm3 Seg Neutrophils % 75.2 H (40.0-70.0) % Seg Neutrophils # 12.5 H (1.8-7.7) K/mm3 Percent Retic 13.38 H (0.78-2.58) % Iron 34 L (37-170) ug/dL TIBC 131 L (250-450) mcg/dL Ferritin 2007.0 H (13.0-400.0) ng/mL Crossmatch 06/09/19 Range/Units 06:53 WBC (4.5-11.0) K/mm3 RBC (3.65-5.03) M/mm3 Hgb (10.1-14.3) gm/dl Hct (30.3-42.9) % MCV (79-97) fl MCH (28-32) pg MCHC (30-34) % RDW (13.2-15.2) % [place] % (Auto) (0.0-7.3) % [place] # (0.0-0.8) K/mm3 Seg Neutrophils % (40.0-70.0) % Seg Neutrophils # (1.8-7.7) K/mm3 Percent Retic (0.78-2.58) % Iron (37-170) ug/dL TIBC (250-450) mcg/dL Ferritin (13.0-400.0) ng/mL Crossmatch See Detail
[2019-06-10] MEDS: TORADOL IV PRN ×2 (01:07→07:55)
[2019-06-10] MEDS: BENADRYL IV PRN ×3 (01:08→23:04)
[2019-06-10] MEDS: D5NS 0.2% 1,000 ML IV SCH ×3 (01:16→19:46)
[2019-06-10] MEDS: DILAUDID IV PRN ×5 (05:59→23:04)
[2019-06-10] MEDS: VANCOMYCIN 1,500 MG in NACL 0.9% 500 ML 500 ML IV SCH ×2 (07:34→19:45)
[2019-06-10] MEDS: HEPARIN SUB-Q SCH ×2 (11:00→21:25)
[2019-06-10] MEDS: FOLVITE PO SCH (11:03)
[2019-06-10] MEDS: ROCEPHIN/NS 1 GM/50 ML 1 GM/50 ML BAG IV SCH (12:41)
[2019-06-10] MEDS: FLEXERIL PO PRN ×2 (13:10→23:53)
--- NOTE | 2019-06-10 19:35 | Progress Note ---
Assessment and Plan - Patient Problems (1) Sickle cell anemia with crisis Current Visit: Yes Status: Chronic Plan to address problem: monitor labs prn, and adjust. (2) Generalized pain Current Visit: No Status: Acute Plan to address problem: pain control. (3) Leukocytosis, unspecified Current Visit: Yes Status: Acute Plan to address problem: cultures. (4) Fever Current Visit: Yes Status: Acute Plan to address problem: Continue with ABX, tylenol. (5) Sepsis Current Visit: Yes Status: Acute Plan to address problem: continue with ABX. Subjective Date of service: 06/10/19 Interval history: Patient seen/examined, resting in bed,. l;abs reviewed, she spiked fever Tm102 earlier today, All cultures still negative.Patient already on double IV ABX, until final culture resulted. Patient seen/examined, resting in bed,labs /cultures reviewed, case d/w patient. Objective - Constitutional Vitals: Vital Signs - 12hr 06/10/19 06/10/19 06/10/19 07:55 09:38 09:51 Temperature 98.8 F 98 F Pulse Rate 111 H 115 H Respiratory 18 16 20 Rate Blood Pressure 104/64 112/58 O2 Sat by Pulse 96 Oximetry 06/10/19 06/10/19 06/10/19 10:23 10:47 11:14 Temperature 98.9 F 99.0 F 99.0 F Pulse Rate 99 H 103 H Respiratory 15 16 18 Rate Blood Pressure 109/73 114/70 108/64 O2 Sat by Pulse 99 98 Oximetry 06/10/19 06/10/19 06/10/19 11:41 11:57 17:45 Temperature 98.4 F 98.6 F 100.3 F H Pulse Rate 104 H 101 H 121 H Respiratory 14 15 18 Rate Blood Pressure 105/64 113/65 109/64 O2 Sat by Pulse 98 96 94 Oximetry General appearance: Present: mild distress, well-nourished - EENT Eyes: PERRL, EOM intact ENT: hearing intact, clear oral mucosa Ears: bilateral: normal - Neck Neck: supple, normal ROM - Respiratory Respiratory effort: normal Respiratory: bilateral: CTA - Breasts Breasts: deferred - Cardiovascular Rhythm: regular Heart Sounds: Present: S1 & S2. Absent: gallop, rub Extremities: pulses intact, No edema, normal color, Full ROM - Gastrointestinal General gastrointestinal: Present: soft, non-tender, non-distended, normal bowel sounds Rectal Exam: deferred - Genitourinary Female genitourinary: deferred - Integumentary Integumentary: clear, warm, dry - Musculoskeletal Musculoskeletal: 1, strength equal bilaterally - Neurologic Neurologic: moves all extremities - Psychiatric Psychiatric: memory intact, appropriate mood/affect, intact judgment & insight - Labs CBC & Chem 7: 06/09/19 05:01 06/07/19 18:59 Labs: Abnormal lab results 06/09/19 Range/Units 06:53 Crossmatch See Detail
[2019-06-10] MEDS: TYLENOL PO PRN (23:49)
[2019-06-11] MEDS: D5NS 0.2% 1,000 ML IV SCH ×4 (02:07→19:11)
[2019-06-11] MEDS: DILAUDID IV PRN ×9 (02:08→21:03)
[2019-06-11] MEDS: BENADRYL IV PRN ×3 (05:06→21:04)
[2019-06-11 06:11] LABS: BUN/Creatinine Ratio 8; Blood Urea Nitrogen 3 mg/dL (7-17); Calcium 8.3 mg/dL (8.4-10.2); Hemolysis Index 27
[2019-06-11] MEDS: VANCOMYCIN 1,500 MG in NACL 0.9% 500 ML 500 ML IV SCH ×2 (06:47→18:28)
[2019-06-11 06:51] LABS: Basophils # (Auto) 0.1 K/mm3 (0.0-0.1); Basophils % (Auto) 0.8 % (0.0-1.8); Eosinophils # (Auto) 0.4 K/mm3 (0.0-0.4); Eosinophils % (Auto) 2.9 % (0.0-4.3); Hematocrit 23.3 % (30.3-42.9); Hemoglobin 8.1 gm/dl (10.1-14.3); Lymphocytes # (Auto) 2.9 K/mm3 (1.2-5.4); Lymphocytes % (Auto) 21.1 % (13.4-35.0); Mean Corpuscular HGB Conc 35 % (30-34); Mean Corpuscular Volume 102 fl (79-97); Monocytes # (Auto) 1.3 K/mm3 (0.0-0.8); Monocytes % (Auto) 9.6 % (0.0-7.3); Platelet Count 273 K/mm3 (140-440); Red Blood Count 2.29 M/mm3 (3.65-5.03); Red Cell Distribution Width 18.5 % (13.2-15.2)
[2019-06-11] MEDS: FOLVITE PO SCH (11:40)
[2019-06-11] MEDS: ROCEPHIN/NS 1 GM/50 ML 1 GM/50 ML BAG IV SCH (11:43)
[2019-06-11] MEDS: PERCOCET 5/325 PO PRN (12:05)
[2019-06-11] MEDS: HEPARIN SUB-Q SCH ×2 (13:21→21:03)
[2019-06-11] MEDS ORDERED: DILAUDID IV ONE (18:51)
--- NOTE | 2019-06-11 18:55 | Progress Note ---
Assessment and Plan - Patient Problems (1) Sickle cell anemia with crisis Current Visit: Yes Status: Chronic Plan to address problem: monitor labs prn, and adjust. (2) Generalized pain Current Visit: No Status: Acute Plan to address problem: pain control. (3) Leukocytosis, unspecified Current Visit: Yes Status: Acute Plan to address problem: cultures. (4) Fever Current Visit: Yes Status: Acute Plan to address problem: Continue with ABX, tylenol. (5) Sepsis Current Visit: Yes Status: Acute Plan to address problem: continue with ABX. Subjective Date of service: 06/11/19 Interval history: Patient seen/examined, resting in bed,. l;abs reviewed, she spiked fever Tm102 earlier today, All cultures still negative.Patient already on double IV ABX, until final culture resulted. Patient seen/examined, resting in bed,labs /cultures reviewed, case d/w patient. Patient seen/examined, resting in bed, labs reviewed, and fair. She is crying from pain, despite current pain management. Will ad just pain meds temporarily to get her pain under some control.. Objective - Constitutional Vitals: Vital Signs - 12hr 06/11/19 08:48 O2 Sat by Pulse 95 Oximetry General appearance: Present: mild distress, well-nourished - EENT Eyes: PERRL, EOM intact ENT: hearing intact, clear oral mucosa Ears: bilateral: normal - Neck Neck: supple, normal ROM - Respiratory Respiratory effort: normal Respiratory: bilateral: CTA - Breasts Breasts: deferred - Cardiovascular Rhythm: regular Heart Sounds: Present: S1 & S2. Absent: gallop, rub Extremities: pulses intact, No edema, normal color, Full ROM - Gastrointestinal General gastrointestinal: Present: soft, non-tender, non-distended, normal bowel sounds Rectal Exam: deferred - Genitourinary Female genitourinary: deferred - Integumentary Integumentary: clear, warm, dry - Musculoskeletal Musculoskeletal: 1, strength equal bilaterally - Neurologic Neurologic: moves all extremities - Psychiatric Psychiatric: memory intact, appropriate mood/affect, intact judgment & insight - Labs CBC & Chem 7: 06/11/19 04:48 06/11/19 04:48 Labs: Abnormal lab results 06/09/19 06/11/19 06/11/19 Range/Units 06:53 04:48 04:48 WBC 13.8 H (4.5-11.0) K/mm3 RBC 2.29 L (3.65-5.03) M/mm3 Hgb 8.1 L (10.1-14.3) gm/dl Hct 23.3 L (30.3-42.9) % MCV 102 H (79-97) fl MCH 35 H (28-32) pg MCHC 35 H (30-34) % RDW 18.5 H (13.2-15.2) % [place] % (Auto) 9.6 H (0.0-7.3) % [place] # 1.3 H (0.0-0.8) K/mm3 Seg Neutrophils # 9.0 H (1.8-7.7) K/mm3 Percent Retic 7.47 H (0.78-2.58) % BUN 3 L (7-17) mg/dL Creatinine 0.4 L D (0.7-1.2) mg/dL Calcium 8.3 L (8.4-10.2) mg/dL Crossmatch See Detail
[2019-06-12] MEDS: D5NS 0.2% 1,000 ML IV SCH ×4 (00:05→17:34)
[2019-06-12] MEDS: TYLENOL PO PRN (00:05)
[2019-06-12] MEDS: DILAUDID IV PRN ×8 (00:06→23:44)
[2019-06-12] MEDS: BENADRYL IV PRN ×3 (03:22→21:10)
[2019-06-12] MEDS: VANCOMYCIN 1,500 MG in NACL 0.9% 500 ML 500 ML IV SCH ×2 (06:29→19:02)
[2019-06-12] MEDS ORDERED: DILAUDID IV PRN ×2 (09:39→09:46)
[2019-06-12] MEDS: ROCEPHIN/NS 1 GM/50 ML 1 GM/50 ML BAG IV SCH (10:05)
[2019-06-12] MEDS: FOLVITE PO SCH (10:27)
[2019-06-12] MEDS: HEPARIN SUB-Q SCH ×2 (10:28→21:10)
[2019-06-12] MEDS: TORADOL IV PRN (13:44)
--- NOTE | 2019-06-12 19:01 | Progress Note ---
Assessment and Plan - Patient Problems (1) Sickle cell anemia with crisis Current Visit: Yes Status: Chronic Plan to address problem: monitor labs prn, and adjust. (2) Generalized pain Current Visit: No Status: Acute Plan to address problem: pain control. (3) Leukocytosis, unspecified Current Visit: Yes Status: Acute Plan to address problem: cultures. all cultures negative so far, so will disclaim sepsis, and thus ruled out. (4) Fever Current Visit: Yes Status: Resolved Plan to address problem: Continue with ABX, tylenol. resolved (5) Sepsis Current Visit: Yes Status: Acute Plan to address problem: continue with ABX. will discontinue.sepsis ruled out , given all cultures negative. Subjective Date of service: 06/12/19 Interval history: Patient seen/examined, resting in bed,. l;abs reviewed, she spiked fever Tm102 earlier today, All cultures still negative.Patient already on double IV ABX, until final culture resulted. Patient seen/examined, resting in bed,labs /cultures reviewed, case d/w patient. Patient seen/examined, resting in bed, labs reviewed, and fair. She is crying from pain, despite current pain management. Will ad just pain meds temporarily to get her pain under some control.. Patient seen/examined, resting in bed, labs reviewed, case d/w patient.Will continue to control pain, and plan discharge. Objective - Constitutional Vitals: Vital Signs - 12hr 06/12/19 06/12/19 06/12/19 10:00 11:43 16:59 Temperature 100.2 F H 98.8 F Pulse Rate 102 H 96 H Respiratory 16 16 Rate Blood Pressure 109/58 102/61 O2 Sat by Pulse 99 99 97 Oximetry General appearance: Present: no acute distress, well-nourished - EENT Eyes: PERRL, EOM intact ENT: hearing intact, clear oral mucosa Ears: bilateral: normal - Neck Neck: supple, normal ROM - Respiratory Respiratory effort: normal Respiratory: bilateral: CTA - Breasts Breasts: deferred - Cardiovascular Rhythm: regular Heart Sounds: Present: S1 & S2. Absent: gallop, rub Extremities: pulses intact, No edema, normal color, Full ROM - Gastrointestinal General gastrointestinal: Present: soft, non-tender, non-distended, normal bowel sounds Rectal Exam: deferred - Genitourinary Female genitourinary: deferred - Integumentary Integumentary: clear, warm, dry - Musculoskeletal Musculoskeletal: 1, strength equal bilaterally - Neurologic Neurologic: moves all extremities - Psychiatric Psychiatric: memory intact, appropriate mood/affect, intact judgment & insight - Labs CBC & Chem 7: 06/11/19 04:48 06/11/19 04:48
[2019-06-12] MEDS: FLEXERIL PO PRN (23:50)
[2019-06-13] MEDS: BENADRYL IV PRN ×3 (03:14→20:00)
[2019-06-13] MEDS: DILAUDID IV PRN ×5 (03:15→20:01)
[2019-06-13] MEDS: D5NS 0.2% 1,000 ML IV SCH ×2 (03:16→19:59)
[2019-06-13] MEDS: FLEXERIL PO PRN (05:05)
[2019-06-13] MEDS: ROXICODONE PO PRN (05:10)
[2019-06-13] MEDS: PERCOCET 5/325 PO PRN ×3 (05:12→21:59)
[2019-06-13] MEDS: VANCOMYCIN 1,500 MG in NACL 0.9% 500 ML 500 ML IV SCH (05:17)
[2019-06-13] MEDS: FOLVITE PO SCH (11:18)
[2019-06-13] MEDS: HEPARIN SUB-Q SCH ×2 (11:19→21:59)
--- NOTE | 2019-06-13 19:35 | Progress Note ---
Assessment and Plan - Patient Problems (1) Sickle cell anemia with crisis Current Visit: Yes Status: Chronic Plan to address problem: monitor labs prn, and adjust. (2) Generalized pain Current Visit: No Status: Acute Plan to address problem: pain control. (3) Leukocytosis, unspecified Current Visit: Yes Status: Acute Plan to address problem: cultures. all cultures negative so far, so will disclaim sepsis, and thus ruled out. (4) Fever Current Visit: Yes Status: Resolved Plan to address problem: Continue with ABX, tylenol. resolved (5) Sepsis Current Visit: Yes Status: Acute Plan to address problem: continue with ABX. will discontinue.sepsis ruled out , given all cultures negative. Subjective Date of service: 06/13/19 Interval history: Patient seen/examined, resting in bed,. l;abs reviewed, she spiked fever Tm102 earlier today, All cultures still negative.Patient already on double IV ABX, until final culture resulted. Patient seen/examined, resting in bed,labs /cultures reviewed, case d/w patient. Patient seen/examined, resting in bed, labs reviewed, and fair. She is crying from pain, despite current pain management. Will ad just pain meds temporarily to get her pain under some control.. Patient seen/examined, resting in bed, labs reviewed, case d/w patient.Will continue to control pain, and plan discharge. Patient seen/examined, resting in bed,records reviewed, case d/w patient. Pain now claimed at 6-7/10.Will continue to monitor, and plan d/c accordingly. Objective - Constitutional Vitals: Vital Signs - 12hr 06/13/19 06/13/19 06/13/19 08:16 12:14 17:08 Temperature 99.0 F 99.2 F Pulse Rate 103 H 102 H Respiratory 18 18 Rate Blood Pressure 114/66 117/68 O2 Sat by Pulse 94 91 93 Oximetry General appearance: Present: mild distress, well-nourished - EENT Eyes: PERRL, EOM intact ENT: hearing intact, clear oral mucosa Ears: bilateral: normal - Neck Neck: supple, normal ROM - Respiratory Respiratory effort: normal Respiratory: bilateral: CTA - Breasts Breasts: deferred - Cardiovascular Rhythm: regular Heart Sounds: Present: S1 & S2. Absent: gallop, rub Extremities: pulses intact, No edema, normal color, Full ROM - Gastrointestinal General gastrointestinal: Present: soft, non-tender, non-distended, normal bowel sounds Rectal Exam: deferred - Genitourinary Female genitourinary: deferred - Integumentary Integumentary: clear, warm, dry - Musculoskeletal Musculoskeletal: 1, strength equal bilaterally - Neurologic Neurologic: moves all extremities - Psychiatric Psychiatric: memory intact, appropriate mood/affect, intact judgment & insight - Labs CBC & Chem 7: 06/11/19 04:48 06/11/19 04:48
[2019-06-14] MEDS: DILAUDID IV PRN ×7 (00:48→23:54)
[2019-06-14] MEDS: BENADRYL IV PRN ×3 (04:03→20:54)
[2019-06-14] MEDS: D5NS 0.2% 1,000 ML IV SCH ×4 (04:04→21:06)
[2019-06-14 04:52] LABS: Basophils # (Auto) 0.1 K/mm3 (0.0-0.1); Basophils % (Auto) 1.2 % (0.0-1.8); Eosinophils # (Auto) 0.7 K/mm3 (0.0-0.4); Eosinophils % (Auto) 6.5 % (0.0-4.3); Hematocrit 21.3 % (30.3-42.9); Hemoglobin 7.3 gm/dl (10.1-14.3); Lymphocytes # (Auto) 3.4 K/mm3 (1.2-5.4); Lymphocytes % (Auto) 29.9 % (13.4-35.0); Mean Corpuscular HGB Conc 34 % (30-34); Mean Corpuscular Volume 98 fl (79-97); Monocytes # (Auto) 1.6 K/mm3 (0.0-0.8); Platelet Count 452 K/mm3 (140-440); Red Blood Count 2.17 M/mm3 (3.65-5.03)
[2019-06-14] MEDS: PERCOCET 5/325 PO PRN (10:08)
[2019-06-14] MEDS: FOLVITE PO SCH (10:09)
[2019-06-14] MEDS: HEPARIN SUB-Q SCH ×2 (10:09→21:03)
--- NOTE | 2019-06-14 15:41 | Progress Note ---
Assessment and Plan - Patient Problems (1) Sickle cell anemia with crisis Current Visit: Yes Status: Chronic Plan to address problem: monitor labs prn, and adjust. (2) Generalized pain Current Visit: No Status: Acute Plan to address problem: pain control. (3) Leukocytosis, unspecified Current Visit: Yes Status: Acute Plan to address problem: cultures. all cultures negative so far, so will disclaim sepsis, and thus ruled out. (4) Fever Current Visit: Yes Status: Resolved Plan to address problem: Continue with ABX, tylenol. resolved (5) Sepsis Current Visit: Yes Status: Acute Plan to address problem: continue with ABX. will discontinue.sepsis ruled out , given all cultures negative. Subjective Date of service: 06/14/19 Interval history: Patient seen/examined, resting in bed,. l;abs reviewed, she spiked fever Tm102 earlier today, All cultures still negative.Patient already on double IV ABX, until final culture resulted. Patient seen/examined, resting in bed,labs /cultures reviewed, case d/w patient. Patient seen/examined, resting in bed, labs reviewed, and fair. She is crying from pain, despite current pain management. Will ad just pain meds temporarily to get her pain under some control.. Patient seen/examined, resting in bed, labs reviewed, case d/w patient.Will continue to control pain, and plan discharge. Patient seen/examined, resting in bed,records reviewed, case d/w patient. Pain now claimed at 6-7/10.Will continue to monitor, and plan d/c accordingly. Patient seen/examined, records reviewed, case d/w patient, will start d/c plans today. Objective - Constitutional Vitals: Vital Signs - 12hr 06/14/19 06/14/19 06/14/19 04:02 04:32 05:08 Temperature 98.8 F Pulse Rate 100 H Respiratory 18 18 20 Rate Blood Pressure 101/58 O2 Sat by Pulse 99 Oximetry 06/14/19 06/14/19 08:30 13:10 Temperature 98.7 F Pulse Rate 98 H Respiratory 18 Rate Blood Pressure 109/70 O2 Sat by Pulse 95 94 Oximetry General appearance: Present: mild distress, well-nourished - EENT Eyes: PERRL, EOM intact ENT: hearing intact, clear oral mucosa Ears: bilateral: normal - Neck Neck: supple, normal ROM - Respiratory Respiratory effort: normal Respiratory: bilateral: CTA - Breasts Breasts: deferred - Cardiovascular Rhythm: regular Heart Sounds: Present: S1 & S2. Absent: gallop, rub Extremities: pulses intact, No edema, normal color, Full ROM - Gastrointestinal General gastrointestinal: Present: soft, non-tender, non-distended, normal bowel sounds Rectal Exam: deferred - Genitourinary Female genitourinary: deferred - Integumentary Integumentary: clear, warm, dry - Musculoskeletal Musculoskeletal: 1, strength equal bilaterally - Neurologic Neurologic: moves all extremities - Psychiatric Psychiatric: memory intact, appropriate mood/affect, intact judgment & insight - Labs CBC & Chem 7: 06/14/19 04:28 06/11/19 04:48 Labs: Abnormal lab results 06/14/19 06/14/19 Range/Units 04:28 04:28 WBC 11.5 H (4.5-11.0) K/mm3 RBC 2.17 L (3.65-5.03) M/mm3 Hgb 7.3 L (10.1-14.3) gm/dl Hct 21.3 L (30.3-42.9) % MCV 98 H (79-97) fl MCH 33 H (28-32) pg RDW 19.0 H (13.2-15.2) % Plt Count 452 H (140-440) K/mm3 [place] % (Auto) 14.0 H (0.0-7.3) % [place] % (Auto) 6.5 H (0.0-4.3) % [place] # 1.6 H (0.0-0.8) K/mm3 Eos # 0.7 H (0.0-0.4) K/mm3 Percent Retic 5.09 H (0.78-2.58) % Total Creatine Kinase 16 L (30-135) units/L
[2019-06-15] MEDS: D5NS 0.2% 1,000 ML IV SCH ×3 (01:17→12:39)
[2019-06-15] MEDS: PERCOCET 5/325 PO PRN (01:20)
[2019-06-15] MEDS: DILAUDID IV PRN ×7 (03:12→23:10)
[2019-06-15] MEDS: BENADRYL IV PRN ×3 (03:13→23:10)
[2019-06-15] MEDS: HEPARIN SUB-Q SCH ×2 (09:30→23:11)
[2019-06-15] MEDS: MIRALAX 3350 PO PRN (09:30)
[2019-06-15] MEDS: FOLVITE PO SCH (09:31)
--- NOTE | 2019-06-15 14:14 | Progress Note ---
Assessment and Plan - Patient Problems (1) Sickle cell anemia with crisis Current Visit: Yes Status: Chronic Plan to address problem: monitor labs prn, and adjust. see notes. (2) Generalized pain Current Visit: No Status: Acute Plan to address problem: pain control. see notes (3) Leukocytosis, unspecified Current Visit: Yes Status: Acute Plan to address problem: cultures. all cultures negative so far, so will disclaim sepsis, and thus ruled out. (4) Fever Current Visit: Yes Status: Resolved Plan to address problem: Continue with ABX, tylenol. resolved (5) Sepsis Current Visit: Yes Status: Acute Plan to address problem: continue with ABX. will discontinue.sepsis ruled out , given all cultures negative. None applicable. Subjective Date of service: 06/15/19 Interval history: Patient seen/examined, resting in bed,. l;abs reviewed, she spiked fever Tm102 earlier today, All cultures still negative.Patient already on double IV ABX, until final culture resulted. Patient seen/examined, resting in bed,labs /cultures reviewed, case d/w patient. Patient seen/examined, resting in bed, labs reviewed, and fair. She is crying from pain, despite current pain management. Will ad just pain meds temporarily to get her pain under some control.. Patient seen/examined, resting in bed, labs reviewed, case d/w patient.Will continue to control pain, and plan discharge. Patient seen/examined, resting in bed,records reviewed, case d/w patient. Pain now claimed at 6-7/10.Will continue to monitor, and plan d/c accordingly. Patient seen/examined, records reviewed, case d/w patient, will start d/c plans today. Patient seen/examined, resting in bed, records reviewed, case d/w patient. she is still claiming ,not able to walk. CPK negative, labs trending in positive way., all cultures negative. Will do a stat xrays, and if negative, and no any recommendation from radiology,will d/c home.I have discussed with patient at [facility] about her hospital stay.Will ask PT to see her. Objective - Constitutional Vitals: Vital Signs - 12hr 06/15/19 06/15/19 05:21 11:21 Temperature 98.7 F 99.6 F Pulse Rate 86 98 H Respiratory 20 16 Rate Blood Pressure 108/63 112/72 O2 Sat by Pulse 100 99 Oximetry General appearance: Present: no acute distress, well-nourished, other (persistent pain, in lower ext, and difficulty walking.) - EENT Eyes: PERRL, EOM intact ENT: hearing intact, clear oral mucosa Ears: bilateral: normal - Neck Neck: supple, normal ROM - Respiratory Respiratory effort: normal Respiratory: bilateral: CTA - Breasts Breasts: deferred - Cardiovascular Rhythm: regular Heart Sounds: Present: S1 & S2. Absent: gallop, rub Extremities: pulses intact, No edema, normal color, Full ROM - Gastrointestinal General gastrointestinal: Present: soft, non-tender, non-distended, normal bowel sounds Rectal Exam: deferred - Genitourinary Female genitourinary: deferred - Integumentary Integumentary: clear, warm, dry - Musculoskeletal Musculoskeletal: 1, strength equal bilaterally - Neurologic Neurologic: moves all extremities - Psychiatric Psychiatric: memory intact, appropriate mood/affect, intact judgment & insight - Labs CBC & Chem 7: 06/14/19 04:28 06/11/19 04:48
--- NOTE | 2019-06-15 15:49 | XRay Report ---
AP PELVIS AP AND LATERAL VIEWS OF BOTH FEMURS, 8 IMAGES INDICATION: MAIN: persistent BILATERAL FEMUR PAIN. COMPARISON: No relevant prior imaging study available. FINDINGS: No acute fracture or dislocation is seen. No soft tissue swelling or foreign bodies. There are no significant degenerative changes. No radiographic evidence of joint effusion. IMPRESSION: 1. No acute findings. Signer Name: Raghav Carroll MD Signed: 06/15/2019 3:45 PM Workstation Name: [id number]
[2019-06-16] MEDS: DILAUDID IV PRN ×7 (02:05→22:18)
[2019-06-16] MEDS: BENADRYL IV PRN ×3 (05:49→19:21)
[2019-06-16] MEDS: MIRALAX 3350 PO PRN (10:23)
[2019-06-16] MEDS: HEPARIN SUB-Q SCH ×2 (10:23→22:19)
[2019-06-16] MEDS: FOLVITE PO SCH (10:23)
[2019-06-16 19:08] VITALS: BP 106/62
--- NOTE | 2019-06-16 22:36 | Discharge Summary ---
Providers - Providers Date of Admission: 06/07/19 21:23 Date of discharge: 06/16/19 Attending physician: ALAINA LUA 06/15/19 15:28 Physical Therapy Evaluation and Treat [CONS] Urgent Comment: Reason For Exam: Claims difficulty ambulating. Primary care physician: ALAINA LUA Hospitalization Reason for admission: SCD/Sikle pain crisis Condition: Good Hospital course: patient presented to the ER with CC of diffuse joint pain, admitted for sxs control, and management, Her hgb was low, and was transfused, hydrated. IV ABX was given due to elevated WBC, until sepsis r/o with negative cultures.Patient continues with leg pains, xrays done, reviewed, and all negative. patient is seen today, examined, recoeds/results reviewed with her. She denies any other issues at this time, and will be d/c home today, to follow up in the office. Disposition: TO HOME OR SELFCARE - Discharge Diagnoses (1) Sickle cell anemia with crisis Status: Chronic (2) Generalized pain Status: Resolved (3) Leukocytosis, unspecified Status: Resolved (4) Fever Status: Resolved (5) Sepsis Status: Ruled-out Core Measure Documentation - Palliative Care Palliative Care/ Comfort Measures: Not Applicable - Core Measures Any of the following diagnoses?: none Exam - Constitutional Vitals: Temp Pulse Resp BP Pulse Ox 98.6 F 114 H 18 106/62 98 06/16/19 18:49 06/16/19 18:49 06/16/19 22:18 06/16/19 18:49 06/16/19 18:49 General appearance: Present: no acute distress, well-nourished - EENT Eyes: Present: PERRL ENT: hearing intact, clear oral mucosa - Neck Neck: Present: supple, normal ROM - Respiratory Respiratory effort: normal Respiratory: bilateral: CTA - Cardiovascular Heart Sounds: Present: S1 & S2. Absent: rub, click - Extremities Extremities: pulses symmetrical, No edema Peripheral Pulses: within normal limits - Abdominal General gastrointestinal: Present: soft, non-tender, non-distended, normal bowel sounds Female genitourinary: Present: deferred - Rectal Rectal Exam: deferred - Integumentary Integumentary: Present: clear, warm, dry - Musculoskeletal Musculoskeletal: gait normal, strength equal bilaterally - Psychiatric Psychiatric: appropriate mood/affect, intact judgment & insight - Neurologic Neurologic: CNII-XII intact, moves all extremities Plan Activity: no restrictions Diet: regular Follow up with: SIOMNA PATEL MD [Referring] - 3-5 Days
== END 2019-06-16 22:59 | disposition home or self-care (01) | DRG 812 ==
LOC: ED 18:45 → 3A 21:23
PROVIDERS: ADMIT Internal Medicine Hematology & Oncology; ATTEND Internal Medicine Hematology & Oncology
PROC: 30233N1 Transfusion of Nonautologous Red Blood Cells into Peripheral Vein, Percutaneous Approach (ICD-10-PCS; principal; 2019-06-10)
DX: D57.00 Hb-SS disease with crisis, unspecified (principal); F12.90 Cannabis use, unspecified, uncomplicated; F17.210 Nicotine dependence, cigarettes, uncomplicated; D72.829 Elevated white blood cell count, unspecified; Z88.5 Allergy status to narcotic agent; Z86.718 Personal history of other venous thrombosis and embolism; Z90.49 Acquired absence of other specified parts of digestive tract; Z90.81 Acquired absence of spleen; Z71.6 Tobacco abuse counseling
CPT/HCPCS: 36415; 71045; 72170; 80048; 80053; 81001; 82550; 82607; 82728; 82962; 83550; 83690; 85007; 85025; 85045; 85660; 86850; 86900; 86901; 86920; 87040; 87086; 94760; 96372; 96374; 99285; 99406; G0378; J0696; J1170; J1200; J1644; J1885; J3370; J7030; J7040; P9016

== ENCOUNTER 2019-08-22 13:26 | Inpatient (IN) | payer MEDICAID ==
--- NOTE | 2019-08-22 13:41 | Event Note ---
ED Screening Note Date of service: 08/22/19 Time: 13:39 ED Screening Note: Pt complains of left sided/lower chest pain x . Hx of sickle cell, states pain seems different. +SOB and pleuritic pain. Denies fever This initial assessment/diagnostic orders/clinical plan/treatment(s) is/are subject to change based on patients health status, clinical progression and re- assessment by fellow clinical providers in the ED. Further treatment and workup at subsequent clinical providers discretion. Patient/guardian urged not to elope from the ED as their condition may be serious if not clinically assessed and managed. Initial orders include: CXR CBC Retic UA
[2019-08-22] MEDS ORDERED: ZOFRAN IV ONE ×2 (13:43→16:30)
[2019-08-22] MEDS ORDERED: MORPHINE IV ONE (13:43)
[2019-08-22] MEDS ORDERED: NACL 0.9% 1000 ML 1,000 ML IV ONE (14:06)
--- NOTE | 2019-08-22 14:08 | Emergency Department Report ---
ED General Adult HPI - General Chief complaint: Chest Pain Stated complaint: SICKLE CELL CRISIS Time Seen by Provider: 08/22/19 14:04 Source: patient Mode of arrival: Ambulatory Limitations: No Limitations - History of Present Illness Initial comments: 24 y.o. female with PMHx of sickle cell anemia presents with complaint of left chest wall pain. Patient states that she follows up with Dr. Mota as an outpatient and last saw him 2 weeks ago. Patient's last admitted at this facility on 06/16/2019. During that admission patient received a transfusion. Patient complains of pain in her upper extremities. Patient denies any pain or lotions. Patient denies any nausea vomiting currently. Patient denies any diarrhea. Patient states he is compliant with her Percocet and folic acid therapy. - Related Data Home Medications Medication Instructions Recorded Confirmed Last Taken Oxycodone HCl/Acetaminophen 1 each PO Q6HR PRN 06/07/19 06/07/19 Unknown [Percocet 10/325 mg] Previous Rx's Medication Instructions Recorded Last Taken Type Folic Acid [Folvite] 1 mg PO QDAY #30 tablet 02/14/14 Unknown Rx Allergies Allergy/AdvReac Type Severity Reaction Status Date / Time morphine AdvReac Intermediate Nausea Verified 08/22/19 13:36 ED Review of Systems ROS: Stated complaint: SICKLE CELL CRISIS Other details as noted in HPI Constitutional: denies: chills, fever Eyes: denies: eye pain, eye discharge, vision change ENT: denies: ear pain, throat pain Respiratory: SOB at rest Cardiovascular: chest pain Endocrine: no symptoms reported Gastrointestinal: denies: abdominal pain, nausea, diarrhea Genitourinary: denies: urgency, dysuria, discharge Musculoskeletal: denies: back pain, joint swelling, arthralgia Skin: denies: rash, lesions Neurological: denies: headache, weakness, paresthesias Psychiatric: denies: anxiety, depression Hematological/Lymphatic: denies: easy bleeding, easy bruising ED Past Medical Hx - Past Medical History Hx Congestive Heart Failure: No Hx Diabetes: No Hx Deep Vein Thrombosis: Yes (AMANDA) Hx Sickle Cell Disease: Yes Hx Asthma: No Hx COPD: No Hx HIV: No - Surgical History Hx Cholecystectomy: Yes Additional Surgical History: spleen removed, and gallbaddler - Social History Smoking Status: Never Smoker Substance Use Type: None - Medications Home Medications: Home Medications Medication Instructions Recorded Confirmed Last Taken Type Folic Acid [Folvite] 1 mg PO QDAY #30 tablet 02/14/14 06/07/19 Unknown Rx Oxycodone HCl/Acetaminophen 1 each PO Q6HR PRN 06/07/19 06/07/19 Unknown History [Percocet 10/325 mg] ED Physical Exam - General Limitations: No Limitations General appearance: alert, other (uncomfortable) - Head Head exam: Present: atraumatic, normocephalic - Eye Eye exam: Present: scleral icterus - ENT ENT exam: Present: mucous membranes moist - Neck Neck exam: Present: normal inspection - Respiratory Respiratory exam: Present: normal lung sounds bilaterally. Absent: respiratory distress - Cardiovascular Cardiovascular Exam: Present: regular rate, normal rhythm, other (reproducible chest wall pain in left chest with no evidence of ecchymosis or abrasion). Absent: systolic murmur, diastolic murmur, rubs, gallop - GI/Abdominal GI/Abdominal exam: Present: soft, normal bowel sounds - Extremities Exam Extremities exam: Present: normal inspection - Back Exam Back exam: Present: normal inspection - Neurological Exam Neurological exam: Present: alert, oriented X3 - Psychiatric Psychiatric exam: Present: normal affect, normal mood - Skin Skin exam: Present: warm, dry, intact, normal color. Absent: rash ED Course Vital Signs 08/22/19 08/22/19 08/22/19 13:34 14:30 16:05 Temperature 98.8 F Pulse Rate 95 H 109 H 90 Respiratory 16 20 16 Rate Blood Pressure 99/71 O2 Sat by Pulse 99 97 98 Oximetry ED Medical Decision Making - Lab Data Result diagrams: 08/22/19 16:31 08/22/19 14:24 - EKG Data EKG shows normal: sinus rhythm Rate: normal - EKG Data When compared to previous EKG there are: no significant change Interpretation: no acute changes - Medical Decision Making Patient received IV fluids as well as Dilaudid and Zofran and Benadryl therapy while here in emergency department. Patient received two more rounds of Dilaudid 2 mg but continues to complain of pain. Patient case discussed with Dr. Mota and patient to be admitted to the hospitalist service for continued management and treatment. - Differential Diagnosis sickle cell pain crises; anemia; electrolyte; acute chest syndrome; pneumon Critical care attestation.: If time is entered above; I have spent that time in minutes in the direct care of this critically ill patient, excluding procedure time. ED Disposition Clinical Impression: Sickle cell anemia with crisis Disposition: DC-09 OP ADMIT IP TO THIS HOSP Is pt being admited?: Yes Does the pt Need Aspirin: No Condition: Stable Referrals: PRIMARY CARE, [Primary Care Provider] - 3-5 Days Time of Disposition: 17:32
[2019-08-22] MEDS ORDERED: DILAUDID IV ONE ×4 (14:20→16:30)
[2019-08-22] MEDS ORDERED: BENADRYL ONE (14:26)
[2019-08-22] MEDS ORDERED: BENADRYL IV ONE ×3 (14:29→16:30)
[2019-08-22 15:07] LABS: Alanine Aminotransferase 40 units/L (7-56); Albumin 4.6 g/dL (3.9-5); BUN/Creatinine Ratio 17; Blood Urea Nitrogen 5 mg/dL (7-17); Calcium 9.3 mg/dL (8.4-10.2); Hemolysis Index 13
--- NOTE | 2019-08-22 16:38 | XRay Report ---
CHEST PA AND LATERAL VIEWS INDICATION: MAIN: left sided chest pain sickle cell crisis. COMPARISON: 06/07/2019. FINDINGS: Support devices: None. Heart: Within normal limits. Lungs/Pleura: No acute pulmonary or pleural findings. IMPRESSION: 1. No significant change. Signer Name: Raghav Carroll MD Signed: 08/22/2019 4:34 PM Workstation Name: [id number]
[2019-08-22 16:41] LABS: Mean Corpuscular HGB Conc 35 % (30-34); Mean Corpuscular Volume 110 fl (79-97); Platelet Count 569 K/mm3 (140-440)
[2019-08-22 17:06] LABS: Red Cell Distribution Width 23.3 % (13.2-15.2)
[2019-08-22 17:51] LABS: Band Neutrophils # (Manual) 0.1 K/mm3; Basophils % (Manual) 0 % (0.0-1.8); Total Cells Counted 100
[2019-08-22 17:52] LABS: Anisocytosis 2+; Macrocytosis 2+
[2019-08-22 17:53] LABS: Sickle Cells 2+
[2019-08-22 17:54] LABS: Hypochromasia 2+; Poikilocytosis 2+; Spherocytes Few; Target Cells Few
[2019-08-22 17:55] LABS: Ovalocytes Few; Platelet Estimate Appears Increased
[2019-08-22 17:56] LABS: Giant Platelets Few
[2019-08-22] MEDS ORDERED: MIRALAX 3350 PO PRN (20:18)
[2019-08-22] MEDS: DILAUDID IV PRN (20:32)
[2019-08-22] MEDS: BENADRYL IV PRN (20:33)
[2019-08-22] MEDS: HEPARIN SUB-Q SCH ×2 (20:46→22:47)
[2019-08-23] MEDS: BENADRYL IV PRN ×7 (00:12→23:18)
[2019-08-23] MEDS: DILAUDID IV PRN ×7 (00:13→23:19)
[2019-08-23] MEDS: D5NS 0.2% 1,000 ML IV SCH ×5 (00:14→20:04)
[2019-08-23 01:24] LABS: Bacteria,Urine 1+ /HPF (Negative); Bilirubin,Urine NEG (Negative); Blood,Urine NEG (Negative); Color,Urine Amber (Yellow); Mucus,Urine FEW /HPF; Protein,Urine <15 mg/dL mg/dL (Negative); RBC,Urine < 1.0 /HPF (0.0-6.0)
[2019-08-23 01:28] LABS: HCG Qualitative,Urine Negative (Negative)
[2019-08-23] MEDS: FOLVITE PO SCH (09:55)
[2019-08-23] MEDS: HEPARIN SUB-Q SCH ×2 (09:55→21:37)
[2019-08-23] MEDS ORDERED: ZOFRAN IV PRN (19:11)
--- NOTE | 2019-08-23 19:17 | History and Physical Report ---
History of Present Illness Date of examination: 08/23/19 Date of admission: 08/22/19 17:37 Chief complaint: SCD/Anemia, sickle pain. History of present illness: Patient seen/examined, resting in bed, records reviewed, and d/w patient. She had presented to the ED with CC of diffuse joint pain, unable to control, at home. Patient is admitted for reasons of sxs management , and control. She will get hydration, pain control, lab monitoring. Past History Past Medical History: anemia Social history: single Family history: no significant family history Medications and Allergies Allergies Allergy/AdvReac Type Severity Reaction Status Date / Time morphine AdvReac Intermediate Nausea Verified 08/22/19 13:36 Home Medications Medication Instructions Recorded Confirmed Last Taken Type No Known Home Medications [No 08/22/19 08/22/19 Unknown History Reported Home Medications] Active Meds: Active Medications Diphenhydramine HCl (Benadryl) 12.5 mg IV Q3H PRN PRN Reason: Itching Last Admin: 08/23/19 15:08 Dose: 12.5 mg Documented by: Folic Acid (Folvite) 1 mg PO QDAY APOLLO Last Admin: 08/23/19 09:55 Dose: 1 mg Documented by: Heparin Sodium (Porcine) (Heparin) 5,000 unit SUB-Q Q12HR APOLLO Last Admin: 08/23/19 09:55 Dose: 5,000 unit Documented by: Hydromorphone HCl (Dilaudid) 2 mg IV Q3H PRN PRN Reason: Pain , Severe (7-10) Last Admin: 08/23/19 15:08 Dose: 2 mg Documented by: Dextrose/Sodium Chloride (D5ns 0.2%) 1,000 mls @ 250 mls/hr IV DIRECT APOLLO Last Admin: 08/23/19 16:37 Dose: 250 mls/hr Documented by: Ondansetron HCl (Zofran) 4 mg IV Q8H PRN PRN Reason: Nausea And Vomiting Polyethylene Glycol (Miralax 3350) 17 gm PO QDAY PRN PRN Reason: Constipation Review of Systems Constitutional: chronic pain Breasts: deferred Musculoskeletal: low back pain Exam - Constitutional Vitals: Temp Pulse Resp BP Pulse Ox 98.5 F 67 16 91/45 100 08/23/19 16:54 08/23/19 16:54 08/23/19 16:54 08/23/19 16:56 08/23/19 16:54 General appearance: Present: mild distress, well-nourished - EENT Eyes: Present: PERRL ENT: hearing intact, clear oral mucosa - Neck Neck: Present: supple, normal ROM - Respiratory Respiratory effort: normal Respiratory: bilateral: CTA - Cardiovascular Heart Sounds: Present: S1 & S2. Absent: rub, click - Extremities Extremities: pulses symmetrical, No edema Peripheral Pulses: within normal limits - Abdominal General gastrointestinal: Present: soft, non-tender, non-distended, normal bowel sounds Female genitourinary: Present: deferred - Rectal Rectal Exam: deferred - Integumentary Integumentary: Present: clear, warm, dry - Musculoskeletal Musculoskeletal: gait normal, strength equal bilaterally - Psychiatric Psychiatric: appropriate mood/affect, intact judgment & insight - Neurologic Neurologic: CNII-XII intact, moves all extremities Results - Labs CBC & Chem 7: 08/22/19 16:31 08/22/19 14:24 Assessment and Plan - Patient Problems (1) Sickle cell anemia with crisis Current Visit: Yes Status: Chronic Plan to address problem: monitor, and adjust as needed. (2) Dehydration Current Visit: Yes Status: Acute Plan to address problem: hydration (3) Pain crisis Current Visit: Yes Status: Acute Plan to address problem: pain control.
[2019-08-24] MEDS: D5NS 0.2% 1,000 ML IV SCH ×4 (01:47→22:20)
[2019-08-24] MEDS: BENADRYL IV PRN ×6 (02:53→22:13)
[2019-08-24] MEDS: DILAUDID IV PRN ×6 (02:53→22:13)
[2019-08-24 05:51] LABS: Hematocrit 23.1 % (30.3-42.9); Mean Corpuscular HGB Conc 35 % (30-34); Mean Corpuscular Volume 109 fl (79-97); Platelet Count 542 K/mm3 (140-440); Red Blood Count 2.12 M/mm3 (3.65-5.03)
[2019-08-24 05:52] LABS: Red Cell Distribution Width 20.4 % (13.2-15.2)
[2019-08-24 06:06] LABS: BUN/Creatinine Ratio 13; Blood Urea Nitrogen 5 mg/dL (7-17); Calcium 8.5 mg/dL (8.4-10.2); Hemolysis Index 70
[2019-08-24 09:01] LABS: Anisocytosis 2+; Basophils % (Manual) 0 % (0.0-1.8); Total Cells Counted 100
[2019-08-24 09:02] LABS: Ovalocytes 1+; Poikilocytosis 2+
[2019-08-24 09:03] LABS: Platelet Estimate Consistent w Auto; Target Cells Few
[2019-08-24] MEDS: HEPARIN SUB-Q SCH ×2 (09:50→22:15)
[2019-08-24] MEDS: FOLVITE PO SCH (09:50)
--- NOTE | 2019-08-24 15:05 | Progress Note ---
Assessment and Plan - Patient Problems (1) Sickle cell anemia with crisis Current Visit: Yes Status: Chronic Plan to address problem: monitor, and adjust as needed. (2) Dehydration Current Visit: Yes Status: Acute Plan to address problem: hydration (3) Pain crisis Current Visit: Yes Status: Acute Plan to address problem: pain control. Subjective Date of service: 08/24/19 Principal diagnosis: SCD/pain crisis.anemia. Interval history: Patient seen/examined, resting in bed, labs reviewed, case d/w patient, Urine with 1+ bact, WBC in cbc elevated,Will think about brief abx. Objective - Constitutional Vitals: Vital Signs - 12hr 08/24/19 08/24/19 08/24/19 05:51 05:56 11:22 Temperature 98.6 F 98.2 F Pulse Rate 71 80 Respiratory 18 18 16 Rate Blood Pressure 101/41 92/49 O2 Sat by Pulse 100 98 Oximetry General appearance: Present: mild distress, well-nourished - EENT Eyes: PERRL, EOM intact ENT: hearing intact, clear oral mucosa Ears: bilateral: normal - Neck Neck: supple, normal ROM - Respiratory Respiratory effort: normal Respiratory: bilateral: CTA - Breasts Breasts: deferred - Cardiovascular Rhythm: regular Heart Sounds: Present: S1 & S2. Absent: gallop, rub Extremities: pulses intact, No edema, normal color, Full ROM - Gastrointestinal General gastrointestinal: Present: soft, non-tender, non-distended, normal bowel sounds Rectal Exam: deferred - Genitourinary Female genitourinary: deferred - Integumentary Integumentary: clear, warm, dry - Musculoskeletal Musculoskeletal: 1, strength equal bilaterally - Neurologic Neurologic: moves all extremities - Psychiatric Psychiatric: memory intact, appropriate mood/affect, intact judgment & insight - Labs CBC & Chem 7: 08/24/19 04:49 08/24/19 04:49 Labs: Abnormal lab results 08/24/19 08/24/19 Range/Units 04:49 04:49 WBC 12.3 H (4.5-11.0) K/mm3 RBC 2.12 L (3.65-5.03) M/mm3 Hgb 8.0 L (10.1-14.3) gm/dl Hct 23.1 L (30.3-42.9) % MCV 109 H (79-97) fl MCH 38 H (28-32) pg MCHC 35 H (30-34) % RDW 20.4 H (13.2-15.2) % Plt Count 542 H (140-440) K/mm3 Seg Neuts % (Manual) 31.0 L (40.0-70.0) % Lymphocytes % (Manual) 45.0 H (13.4-35.0) % Eosinophils % (Manual) 19.0 H (0.0-4.3) % Nucleated RBC % 4.0 H (0.0-0.9) % Lymphocytes # (Manual) 5.5 H (1.2-5.4) K/mm3 Eosinophils # (Manual) 2.3 H (0.0-0.4) K/mm3 Percent Retic 12.04 H (0.78-2.58) % Carbon Dioxide 21 L (22-30) mmol/L BUN 5 L (7-17) mg/dL Creatinine 0.4 L (0.7-1.2) mg/dL
[2019-08-24] MEDS: ROCEPHIN/NS 1 GM/50 ML 1 GM/50 ML BAG IV SCH (22:12)
[2019-08-25] MEDS: TORADOL IV PRN ×2 (00:27→14:02)
[2019-08-25] MEDS: BENADRYL IV PRN ×6 (02:21→23:02)
[2019-08-25] MEDS: DILAUDID IV PRN ×6 (02:22→23:02)
[2019-08-25] MEDS: D5NS 0.2% 1,000 ML IV SCH ×2 (05:21→20:06)
[2019-08-25] MEDS ORDERED: HEPARIN/NS 5000 UNIT/500ML(CATH LAB) 1,000 ML IR ONE (08:48)
[2019-08-25] MEDS ORDERED: HEPARIN 10,000 UNITS/10 ML ONE (08:48)
[2019-08-25] MEDS ORDERED: ANCEF/STERILE WATER 2 GM/20 ML 2 GM/20 ML SYRINGE IV ONE (08:48)
[2019-08-25] MEDS ORDERED: NACL 0.9% 1000 ML 1,000 ML ONE ×2 (09:40)
[2019-08-25] MEDS ORDERED: KETAMINE 50 MG/ML-WATER SYRING ONE (09:41)
[2019-08-25] MEDS ORDERED: DIPRIVAN 10 MG/ML IV ONE ×2 (09:41)
[2019-08-25] MEDS ORDERED: VERSED ONE (09:41)
--- NOTE | 2019-08-25 09:56 | Consultation ---
History of Present Illness - Reason for Consult Consult date: 08/25/19 Port placement - History of Present Illness 24 y.o. female with PMHx of sickle cell anemia presents with complaint of left c hest wall pain. Patient states that she follows up with Dr. Mota as an outpatient and last saw him 2 weeks ago. Patient's last admitted at this facility on 06/16/2019. During that admission patient received a transfusion. Patient complains of pain in her upper extremities. Patient denies any pain or lotions. Patient denies any nausea vomiting currently. Patient denies any diarrhea. Patient states he is compliant with her Percocet and folic acid therapy. Vascular consulted for port placement. Past History Past Medical History: anemia Social history: single Family history: no significant family history Medications and Allergies Allergies Allergy/AdvReac Type Severity Reaction Status Date / Time morphine AdvReac Intermediate Nausea Verified 08/22/19 13:36 Home Medications Medication Instructions Recorded Confirmed Last Taken Type No Known Home Medications [No 08/22/19 08/22/19 Unknown History Reported Home Medications] Active Meds: Active Medications Diphenhydramine HCl (Benadryl) 12.5 mg IV Q3H PRN PRN Reason: Itching Last Admin: 08/25/19 05:22 Dose: 12.5 mg Documented by: Folic Acid (Folvite) 1 mg PO QDAY APOLLO Last Admin: 08/24/19 09:50 Dose: 1 mg Documented by: Heparin Sodium (Porcine) (Heparin) 5,000 unit SUB-Q Q12HR APOLLO Last Admin: 08/24/19 22:15 Dose: 5,000 unit Documented by: Hydromorphone HCl (Dilaudid) 2 mg IV Q3H PRN PRN Reason: Pain , Severe (7-10) Last Admin: 08/25/19 05:22 Dose: 2 mg Documented by: Dextrose/Sodium Chloride (D5ns 0.2%) 1,000 mls @ 250 mls/hr IV DIRECT APOLLO Last Admin: 08/25/19 05:21 Dose: 250 mls/hr Documented by: Ceftriaxone Sodium (Rocephin/Ns 1 Gm/50 Ml) 1 gm in 50 mls @ 100 mls/hr IV Q24H APOLLO; Protocol Last Admin: 08/24/19 22:12 Dose: 100 mls/hr Documented by: Sodium Chloride (Nacl 0.9% 1000 Ml) 1,000 mls @ 42 mls/hr IV DIRECT APOLLO Ketorolac Tromethamine (Toradol) 30 mg IV Q6H PRN PRN Reason: Pain, Moderate (4-6) Stop: 08/28/19 20:16 Last Admin: 08/25/19 00:27 Dose: 30 mg Documented by: Ondansetron HCl (Zofran) 4 mg IV Q8H PRN PRN Reason: Nausea And Vomiting Oxycodone/Acetaminophen (Percocet 5/325) 2 tab PO Q8H PRN PRN Reason: Pain, Moderate (4-6) Polyethylene Glycol (Miralax 3350) 17 gm PO QDAY PRN PRN Reason: Constipation Review of Systems ROS unobtainable: due to endotracheal tube All systems: negative (see HPI) Exam - Constitutional Vitals: Temp Pulse Resp BP Pulse Ox 98.6 F 72 18 104/54 90 08/25/19 06:14 08/25/19 06:14 08/25/19 06:14 08/25/19 06:14 08/25/19 06:14 General appearance: Present: no acute distress - EENT Eyes: Present: EOM intact ENT: hearing intact - Respiratory Respiratory effort: normal - Psychiatric Psychiatric: appropriate mood/affect, cooperative Results - Labs CBC & Chem 7: 08/24/19 04:49 08/24/19 04:49 Assessment and Plan 24-year-old female with sickle cell crisis with limited IV access with request for port placement. No fevers. No positive blood cultures. Mildly increased white blood cell count, but this is nonspecific in the setting of sickle cell crisis. Reasonable to place port at this time. Plan to place port. Nothing by mouth except meds. Discussed care for with patient. Can remove Tegaderm in 24-48 hours. Do not get site wet for 1 week. Steri-Strips and Dermabond will fall off on its own. Recommend not using port for 1 week since IV team was able to obtain left arm IV access.
[2019-08-25] MEDS: HEPARIN SUB-Q SCH ×2 (10:00→21:28)
[2019-08-25] MEDS ORDERED: NACL 0.9% 1000 ML 1,000 ML IV SCH (10:00)
--- NOTE | 2019-08-25 10:08 | Anesthesia Consultation ---
Anesthesia Consult and Med Hx Date of service: 08/25/19 - Airway Anesthetic Teeth Evaluation: Good ROM Head & Neck: Adequate Mental/Hyoid Distance: Adequate Mallampati Class: Class I Intubation Access Assessment: Good - Pulmonary Exam CTA: Yes - Cardiac Exam Cardiac Exam: RRR - Pre-Operative Health Status ASA Pre-Surgery Classification: ASA3 Proposed Anesthetic Plan: MAC - Pulmonary Hx Smoking: No Hx Respiratory Symptoms: Yes (presented with chest pain concerning for acute chest. Currently on room air) SOB: No Home Oxygen Therapy: No - Cardiovascular System Hx Hypertension: No Hx Heart Attack/AMI: No - Central Nervous System Hx Seizures: No CVA: No - Gastrointestinal Hx Gastroesophageal Reflux Disease: No - Endocrine Hx Renal Disease: No Hx Liver Disease: No Hx Insulin Dependent Diabetes: No Hx Non-Insulin Dependent Diabetes: No Hx Thyroid Disease: No - Hematic Hx Anemia: Yes Hx Sickle Cell Disease: Yes (admitted with pain crisis) - Other Systems Hx Obesity: No - Additional Comments Anesthesia Medical History Comments: No hx anesthetic complications. Home pain regimen percocet 10/325 q4-6hrs prn; no long acting opioids.
--- NOTE | 2019-08-25 10:09 | Anesthesia Day of Surgery ---
Anesthesia Day of Surgery - Day of Surgery Patient Examined: Yes Patient H&P Reviewed: Yes Patient is NPO: Yes
[2019-08-25] MEDS: XYLOCAINE 1%/ EPI 1:100,000 INFILTRATI ONE ×2 (10:18→10:26)
[2019-08-25] MEDS ORDERED: XYLOCAINE 1%/ EPI 1:100,000 INFILTRATI ONE (10:27)
--- NOTE | 2019-08-25 11:01 | Operative Report ---
Operative Report Operative Report: EXAM: 1. Ultrasound-guided puncture of the right internal jugular vein 2. Fluoroscopic-guided placement of a right internal jugular tunneled 8 Fr BARD port placement. DATE: 08/25/19 INDICATION: Sickle cell disease requiring port placement. MEDICATIONS: Please see nursing report for full details. DEVICES: 8 Fr single lumen power port CONTRAST: None SURGEON: Deven Lynch MD PROCEDURE: The risks, benefits, and alternatives were discussed and informed consent was obtained. The patient was transported to the angiography suite in satisfactory/stable condition and was transported onto the angiography table. The patient's right internal jugular vein was assessed with ultrasound and determined to be patent prior to procedure. The patient was prepped and draped in a sterile fashion. The puncture site was anesthetized. Under sonographic guidance, the right internal jugular vein was punctured with a 21-gauge micropuncture needle and a 0.018 inch wire was advanced into the inferior vena cava. The micropuncture needle was exchanged for a transitional dilator and the wire was retracted into the right atrium to sandee intravascular distance. The wire and inner dilator were removed. 0.035 inch wire was advanced through the transitional dilator into the inferior vena cava. A suitable port pocket site was identified on the patient's chest inferior and lateral to the venotomy. The site was anesthetized with local anesthetic at the pocket and the track was anesthetized. Incision was made with a 15 blade extending approximately 2 cm. The port was created with the use of a hemostat and hemostasis was achieved with manual compression and with the use of a Bovie device on coagulation setting. The port pocket was irrigated. The port was tested and the port was attached to the tubing. The port was the retested and attached to the tunneling device. The port was placed in the pocket and then tunneled to the venotomy. The port tubing was cut to predetermined length. Over the 0.035 inch wire, serial dilatation was performed with ultimate placement of a peel-away sheath. The catheter was advanced through the peel- away sheath after the wire was removed and positioned centrally under fluoroscopic guidance. The peel-away sheath was removed. The pocket was closed in 2 layers with multiple deep interrupted 3-0 Vicryl sutures with a running subcuticular 4-0 Vicryl suture. The venotomy was closed with a single deep interrupted 4-0 Vicryl suture. Dermabond was applied to both sites and Steri-Strips were then applied. The port was the catheter was charged with 300 units heparin per mL of space. Sterile dressing applied. The patient was transferred from the angiography suite back to the floor in stable condition. FINDINGS: 1. Excellent flow was obtained through the port. 2. The catheter tip is in the right atrium. IMPRESSION: 1. Successful ultrasound and fluoroscopically guided placement of a right internal jugular tunneled 8 [place] [employer] Bard signal lumen power port.
--- NOTE | 2019-08-25 11:42 | Post Anesthesia Evaluation ---
- Post Anesthesia Evaluation Patient Participated: Yes Airway Patent: Yes Stable Respiratory Function: Yes Nausea/Vomiting: No Temp > 96.8F: Yes Pain Manageable: Yes Adequeate Hydration: Yes Anesthesia Complications: No
[2019-08-25] MEDS: ROCEPHIN/NS 1 GM/50 ML 1 GM/50 ML BAG IV SCH (19:59)
[2019-08-25] MEDS: FOLVITE PO SCH (20:00)
--- NOTE | 2019-08-25 21:16 | Progress Note ---
Assessment and Plan - Patient Problems (1) Sickle cell anemia with crisis Current Visit: Yes Status: Chronic Plan to address problem: monitor, and adjust as needed. (2) Dehydration Current Visit: Yes Status: Acute Plan to address problem: hydration (3) Pain crisis Current Visit: Yes Status: Acute Plan to address problem: pain control. Subjective Date of service: 08/25/19 Principal diagnosis: SCD/pain crisis.anemia. Interval history: Patient seen/examined, resting in bed, labs reviewed, case d/w patient, Urine with 1+ bact, WBC in cbc elevated,Will think about brief abx. Patient seen/examined, resting in bed, additive pain due to post power port placement.Will continue pain management. Objective - Constitutional Vitals: Vital Signs - 12hr 08/25/19 08/25/19 11:10 16:59 Temperature 99.2 F 97.1 F L Pulse Rate 88 82 Respiratory 14 18 Rate Blood Pressure 106/37 89/35 O2 Sat by Pulse 97 93 Oximetry General appearance: Present: mild distress, well-nourished - EENT Eyes: PERRL, EOM intact ENT: hearing intact, clear oral mucosa Ears: bilateral: normal - Neck Neck: supple, normal ROM - Respiratory Respiratory effort: normal Respiratory: bilateral: CTA - Breasts Breasts: deferred - Cardiovascular Rhythm: regular Heart Sounds: Present: S1 & S2. Absent: gallop, rub Extremities: pulses intact, No edema, normal color, Full ROM - Gastrointestinal General gastrointestinal: Present: soft, non-tender, non-distended, normal bowel sounds Rectal Exam: deferred - Genitourinary Female genitourinary: deferred - Integumentary Integumentary: clear, warm, dry - Musculoskeletal Musculoskeletal: 1, strength equal bilaterally - Neurologic Neurologic: moves all extremities - Psychiatric Psychiatric: memory intact, appropriate mood/affect, intact judgment & insight - Labs CBC & Chem 7: 08/24/19 04:49 08/24/19 04:49
[2019-08-26] MEDS: PERCOCET 5/325 PO PRN (00:04)
[2019-08-26] MEDS: DILAUDID IV PRN ×7 (02:18→21:29)
[2019-08-26] MEDS: BENADRYL IV PRN ×7 (02:18→21:34)
[2019-08-26] MEDS: FOLVITE PO SCH (09:56)
[2019-08-26] MEDS: HEPARIN SUB-Q SCH ×2 (09:57→21:34)
[2019-08-26] MEDS: D5NS 0.2% 1,000 ML IV SCH ×3 (12:11→23:39)
[2019-08-26] MEDS: ROCEPHIN/NS 1 GM/50 ML 1 GM/50 ML BAG IV SCH (16:00)
--- NOTE | 2019-08-26 21:31 | Progress Note ---
Assessment and Plan - Patient Problems (1) Sickle cell anemia with crisis Current Visit: Yes Status: Chronic Plan to address problem: monitor, and adjust as needed. (2) Dehydration Current Visit: Yes Status: Acute Plan to address problem: hydration (3) Pain crisis Current Visit: Yes Status: Acute Plan to address problem: pain control. Subjective Date of service: 08/26/19 Principal diagnosis: SCD/pain crisis.anemia. Interval history: Patient seen/examined, resting in bed, labs reviewed, case d/w patient, Urine with 1+ bact, WBC in cbc elevated,Will think about brief abx. Patient seen/examined, resting in bed, additive pain due to post power port placement.Will continue pain management. Patient seen/examined, resting in bed, i have discussed D/c plans with her. She insisting ,that her pain level ,is about 7/10, especially in the port area. Will revisit tomorrow, and see about d/c plans. Objective - Constitutional Vitals: Vital Signs - 12hr 08/26/19 08/26/19 12:08 17:37 Temperature 99.4 F 98.8 F Pulse Rate 73 100 H Respiratory 20 20 Rate Blood Pressure 98/54 104/57 O2 Sat by Pulse 96 93 Oximetry General appearance: Present: mild distress, well-nourished - EENT Eyes: PERRL, EOM intact ENT: hearing intact, clear oral mucosa Ears: bilateral: normal - Neck Neck: supple, normal ROM - Respiratory Respiratory effort: normal Respiratory: bilateral: CTA - Breasts Breasts: deferred - Cardiovascular Rhythm: regular Heart Sounds: Present: S1 & S2. Absent: gallop, rub Extremities: pulses intact, No edema, normal color, Full ROM - Gastrointestinal General gastrointestinal: Present: soft, non-tender, non-distended, normal bowel sounds Rectal Exam: deferred - Genitourinary Female genitourinary: deferred - Integumentary Integumentary: clear, warm, dry - Musculoskeletal Musculoskeletal: 1, strength equal bilaterally - Neurologic Neurologic: moves all extremities - Psychiatric Psychiatric: memory intact, appropriate mood/affect, intact judgment & insight - Labs CBC & Chem 7: 08/24/19 04:49 08/24/19 04:49
[2019-08-27] MEDS: DILAUDID IV PRN ×7 (00:49→23:36)
[2019-08-27] MEDS: BENADRYL IV PRN ×7 (00:49→23:36)
[2019-08-27] MEDS: D5NS 0.2% 1,000 ML IV SCH ×4 (04:47→20:29)
[2019-08-27] MEDS: HEPARIN SUB-Q SCH ×2 (09:47→23:35)
[2019-08-27] MEDS: FOLVITE PO SCH (09:48)
[2019-08-27] MEDS: ROCEPHIN/NS 1 GM/50 ML 1 GM/50 ML BAG IV SCH (16:20)
--- NOTE | 2019-08-27 19:52 | Discharge Summary ---
Providers - Providers Date of Admission: 08/22/19 17:37 Date of discharge: 08/28/19 Attending physician: ALAINA LUA 08/24/19 15:27 Consult to Physician [CONS] Routine Comment: Consulting Provider: VERENA GRAY Physician Instructions: Reason For Exam: Power port placement Primary care physician: PROJECT ADMINISTRATOR Hospitalization Reason for admission: Acute pain crisis. Condition: Stable Hospital course: Patient seen/examined, resting in bed, No new issues at this time.Her pain meds reviewed. Discussed d/c with her. pain in the port area is not expected to resolved so fast. It will take some time, to completely resolve. Patient will go home tomorrow, and continue her pain meds at home. She has enough pain meds at home.She was admitted via the ED ,for pain crisis.She was treated with pain meds, hydration, and had a power port placed, for reasons of very poor access.She had some uti, and was treated with ABX. Disposition: TO HOME OR SELFCARE - Discharge Diagnoses (1) Sickle cell anemia with crisis Status: Chronic (2) Dehydration Status: Resolved (3) Pain crisis Status: Resolved Core Measure Documentation - Palliative Care Palliative Care/ Comfort Measures: Not Applicable - Core Measures Any of the following diagnoses?: none Exam - Constitutional Vitals: Temp Pulse Resp BP Pulse Ox 100.1 F H 112 H 20 101/61 96 08/27/19 16:17 08/27/19 16:17 08/27/19 17:01 08/27/19 16:17 08/27/19 16:17 General appearance: Present: mild distress, well-nourished - EENT Eyes: Present: PERRL ENT: hearing intact, clear oral mucosa - Neck Neck: Present: supple, normal ROM - Respiratory Respiratory effort: normal Respiratory: bilateral: CTA - Cardiovascular Heart Sounds: Present: S1 & S2. Absent: rub, click - Extremities Extremities: pulses symmetrical, No edema Peripheral Pulses: within normal limits - Abdominal General gastrointestinal: Present: soft, non-tender, non-distended, normal bowel sounds Female genitourinary: Present: deferred - Rectal Rectal Exam: deferred - Integumentary Integumentary: Present: clear, warm, dry - Musculoskeletal Musculoskeletal: gait normal, strength equal bilaterally - Psychiatric Psychiatric: appropriate mood/affect, intact judgment & insight - Neurologic Neurologic: CNII-XII intact, moves all extremities Plan Activity: no restrictions Diet: regular Follow up with: PRIMARY CARE, [Primary Care Provider] - 3-5 Days
[2019-08-28] MEDS: D5NS 0.2% 1,000 ML IV SCH ×2 (00:47→05:50)
[2019-08-28] MEDS: BENADRYL IV PRN ×3 (02:41→09:17)
[2019-08-28] MEDS: DILAUDID IV PRN ×3 (02:41→09:18)
[2019-08-28] MEDS: HEPARIN SUB-Q SCH (09:17)
[2019-08-28] MEDS: FOLVITE PO SCH (09:17)
[2019-08-28 11:39] VITALS: BP 102/51
[2019-08-28] MEDS: PERCOCET 5/325 PO PRN (13:39)
== END 2019-08-28 14:30 | disposition home or self-care (01) | DRG 812 ==
LOC: ED 13:26 → 3A 17:37
PROVIDERS: ADMIT Internal Medicine Hematology & Oncology; ATTEND Internal Medicine Hematology & Oncology
PROC: 0JH60WZ Insertion of Totally Implantable Vascular Access Device into Chest Subcutaneous Tissue and Fascia, Open Approach (ICD-10-PCS; principal; 2019-08-25)
PROC: 02H633Z Insertion of Infusion Device into Right Atrium, Percutaneous Approach (ICD-10-PCS; 2019-08-25)
PROC: B548ZZA Ultrasonography of Superior Vena Cava, Guidance (ICD-10-PCS; 2019-08-25)
PROC: B5181ZA Fluoroscopy of Superior Vena Cava using Low Osmolar Contrast, Guidance (ICD-10-PCS; 2019-08-25)
DX: D57.00 Hb-SS disease with crisis, unspecified (principal); E86.0 Dehydration; Z88.5 Allergy status to narcotic agent; Z86.718 Personal history of other venous thrombosis and embolism; Z79.01 Long term (current) use of anticoagulants; Z90.49 Acquired absence of other specified parts of digestive tract; Z90.81 Acquired absence of spleen
CPT/HCPCS: 36415; 36561; 71046; 80048; 80053; 81001; 81025; 84484; 85007; 85025; 85045; 93005; 93010; 96374; 96375; 96376; G0378; C1788; J0690; J0696; J1170; J1200; J1644; J1885; J2250; J2405; J2704; J7030

== ENCOUNTER 2019-09-04 22:39 | Inpatient (IN) | payer MEDICAID ==
[2019-09-05] MEDS ORDERED: ONDANSETRON 4 MG/2 ML INJ IV ONE (01:05)
[2019-09-05] MEDS ORDERED: HYDROmorphone 1 MG/1 ML INJ IV ONE ×4 (01:05→03:27)
--- NOTE | 2019-09-05 01:09 | Emergency Department Report ---
HPI - General Chief Complaint: Pain General Time Seen by Provider: 09/05/19 00:39 - HPI HPI: Room 5 The patient is 24-year-old female presenting with a chief complaint of pain. The patient has a history of sickle cell disease states she had a PowerPort placed approximately one week ago. The patient states 2 nights ago she developed pain around the port site and when she woke up later she had pain in her entire right upper extremity and neck. Patient states she also developed pain in her back and bilateral lower extremities CONSISTENT with her sickle cell pain. Patient denies any preceding trauma or history of fever. The patient gives her pain a score of 10/10 Location: [See above] Duration: [See above] Quality: [See above] Severity: [See above] Timing: [See above] Context: [See above] Modifying factors: [See above] Associated signs and symptoms: [see above] ED Past Medical Hx - Past Medical History Hx Deep Vein Thrombosis: Yes (AMANDA) Hx Sickle Cell Disease: Yes (admitted with pain crisis) - Surgical History Hx Cholecystectomy: Yes Additional Surgical History: spleen removed, and gallbaddler, right chest power port - Family History Family history: no significant - Social History Smoking Status: Never Smoker Substance Use Type: None (denies illicit drug use) - Medications Home Medications: Home Medications Medication Instructions Recorded Confirmed Last Taken Type No Known Home Medications [No 08/22/19 08/22/19 Unknown History Reported Home Medications] ED Review of Systems ROS: Stated complaint: HAVING PAIN FROM PORT SITE Other details as noted in HPI Constitutional: denies: fever Eyes: denies: eye pain ENT: denies: throat pain Respiratory: no symptoms reported Cardiovascular: denies: chest pain Endocrine: no symptoms reported Gastrointestinal: denies: abdominal pain Genitourinary: denies: dysuria Musculoskeletal: back pain, myalgia Neurological: denies: headache Physical Exam - Physical Exam Vital Signs: Vital Signs 09/04/19 22:57 Temperature 99.6 F Pulse Rate 116 H Respiratory 22 Rate Blood Pressure 115/65 O2 Sat by Pulse 94 Oximetry Physical Exam: GENERAL: The patient is well-developed well-nourished female lying on stretcher not appearing to be in acute distress. [] HEENT: Normocephalic. Atraumatic. Extraocular motions are intact. Patient has moist mucous membranes. NECK: Supple. Trachea midline CHEST/LUNGS: Clear to auscultation. There is no respiratory distress noted. HEART/CARDIOVASCULAR: Regular. There is no tachycardia. There is no gallop rub or murmur. ABDOMEN: Abdomen is soft, nontender. Patient has normal bowel sounds. There is no abdominal distention. SKIN: There is no rash. There is no edema. There is no diaphoresis. NEURO: The patient is awake, alert, and oriented. The patient is cooperative. The patient has normal speech MUSCULOSKELETAL: There is no evidence of acute injury. ED Course Vital Signs 09/04/19 22:57 Temperature 99.6 F Pulse Rate 116 H Respiratory 22 Rate Blood Pressure 115/65 O2 Sat by Pulse 94 Oximetry - Consultations Consultation #1: 09/05/19 03:[address] Mota- will admit the patient. Request bridging orders be placed in patient be given D5 0.25 normal saline at 250 ML's per hour and Dilaudid 2 mg IV every 8 hours when necessary ED Medical Decision Making - Lab Data Result diagrams: 09/05/19 01:21 09/05/19 01:21 Laboratory Tests 09/05/19 09/05/19 09/05/19 01:21 01:21 01:21 WBC 15.7 H RBC 1.97 L Hgb 7.5 L Hct 21.7 L MCV 110 H MCH 38 H MCHC 35 H RDW 20.1 H Plt Count 490 H Lymph % (Auto) 27.1 [place] % (Auto) 8.8 H Eos % (Auto) 4.2 Baso % (Auto) 1.3 Lymph # 4.3 [place] # 1.4 H Eos # 0.7 H Baso # 0.2 H Seg Neutrophils % 58.6 Seg Neutrophils # 9.2 H Percent Retic 14.18 H PT 16.2 H INR 1.32 H APTT 38.3 H Sodium 141 Potassium 3.9 Chloride 106.5 Carbon Dioxide 24 Anion Gap 14 BUN 5 L Creatinine 0.3 L Estimated GFR > 60 BUN/Creatinine Ratio 17 Glucose 90 Calcium 9.1 HCG, Qual 09/05/19 01:21 WBC RBC Hgb Hct MCV MCH MCHC RDW Plt Count Lymph % (Auto) [place] % (Auto) Eos % (Auto) Baso % (Auto) Lymph # [place] # Eos # Baso # Seg Neutrophils % Seg Neutrophils # Percent Retic PT INR APTT Sodium Potassium Chloride Carbon Dioxide Anion Gap BUN Creatinine Estimated GFR BUN/Creatinine Ratio Glucose Calcium HCG, Qual Negative - Differential Diagnosis sickle cell pain crisis, port infection, Critical care attestation.: If time is entered above; I have spent that time in minutes in the direct care of this critically ill patient, excluding procedure time. ED Disposition Clinical Impression: Sickle cell pain crisis Disposition: 09 OP ADMIT IP TO THIS HOSP Is pt being admited?: Yes Does the pt Need Aspirin: Yes Condition: Fair Referrals: PRIMARY CARE, [Primary Care Provider] - 3-5 Days Time of Disposition: 03:48 (Pt admitted to Dr Mtoa)
[2019-09-05 01:42] LABS: Basophils # (Auto) 0.2 K/mm3 (0.0-0.1); Basophils % (Auto) 1.3 % (0.0-1.8); Eosinophils # (Auto) 0.7 K/mm3 (0.0-0.4); Eosinophils % (Auto) 4.2 % (0.0-4.3); Hematocrit 21.7 % (30.3-42.9); Hemoglobin 7.5 gm/dl (10.1-14.3); Lymphocytes # (Auto) 4.3 K/mm3 (1.2-5.4); Lymphocytes % (Auto) 27.1 % (13.4-35.0); Mean Corpuscular HGB Conc 35 % (30-34); Mean Corpuscular Volume 110 fl (79-97); Monocytes # (Auto) 1.4 K/mm3 (0.0-0.8); Monocytes % (Auto) 8.8 % (0.0-7.3); Platelet Count 490 K/mm3 (140-440); Red Blood Count 1.97 M/mm3 (3.65-5.03)
[2019-09-05] MEDS: D5W/0.2% NACL 1,000 ML IV SCH ×6 (01:52→22:29)
[2019-09-05 01:53] LABS: Red Cell Distribution Width 20.1 % (13.2-15.2)
[2019-09-05] MEDS ORDERED: diphenhydrAMINE 50 MG/ML VIAL IV ONE (01:53)
[2019-09-05 01:58] LABS: INR 1.32 (0.87-1.13)
[2019-09-05 01:59] LABS: BUN/Creatinine Ratio 17; Blood Urea Nitrogen 5 mg/dL (7-17); Calcium 9.1 mg/dL (8.4-10.2); Hemolysis Index 7; Partial Thromboplastin Time 38.3 Sec. (24.2-36.6)
[2019-09-05] MEDS ORDERED: KETOROLAC 30 MG/1 ML INJ IV ONE (03:27)
[2019-09-05] MEDS ORDERED: D5W/0.2% NACL 1,000 ML IV SCH (04:00)
[2019-09-05] MEDS: HYDROmorphone 2 MG/1 ML INJ IV PRN ×5 (08:32→22:19)
[2019-09-05] MEDS: diphenhydrAMINE 50 MG/ML VIAL IV PRN ×4 (12:59→22:19)
[2019-09-05] MEDS ORDERED: ONDANSETRON 4 MG/2 ML INJ IV PRN (22:46)
[2019-09-05] MEDS ORDERED: PERCOCET PO PRN (22:52)
--- NOTE | 2019-09-05 23:01 | History and Physical Report ---
History of Present Illness Date of examination: 09/05/19 Date of admission: 09/05/19 15:43 Chief complaint: SCD/Anemia/Pain crisis. History of present illness: Patient presented to the ER with CC of diffuse joint pain/SOB, and unable to control at home.She is admitted for sxs management, and control. WBC up, Retic up. She will be treated with pain control, hydration, monitor, and adjust labs.Once stabilized, will D/c home. Past History Past Medical History: anemia Social history: single, Lives alone Family history: no significant family history Medications and Allergies Allergies Allergy/AdvReac Type Severity Reaction Status Date / Time morphine AdvReac Intermediate Nausea Verified 08/22/19 13:36 Home Medications Medication Instructions Recorded Confirmed Last Taken Type Percocet 10/325 mg 1 tab PO Q6H PRN 09/05/19 09/05/19 Unknown History oxyCONTIN ER 30 mg PO BID 09/05/19 09/05/19 Unknown History Active Meds: Active Medications Diphenhydramine HCl (Benadryl) 12.5 mg IV Q3HR PRN PRN Reason: Itching Last Admin: 09/05/19 22:19 Dose: 12.5 mg Documented by: Hydromorphone HCl (Dilaudid) 2 mg IV Q3H PRN PRN Reason: Pain , Severe (7-10) Last Admin: 09/05/19 22:19 Dose: 2 mg Documented by: Dextrose/Sodium Chloride (D5ns 0.2%) 1,000 mls @ 250 mls/hr IV DIRECT APOLLO Last Admin: 09/05/19 22:29 Dose: 250 mls/hr Documented by: Ceftriaxone Sodium (Rocephin/Ns 1 Gm/50 Ml) 1 gm in 50 mls @ 100 mls/hr IV Q24HR APOLLO; Protocol Ketorolac Tromethamine (Toradol) 30 mg IV Q6HR APOLLO Stop: 09/10/19 00:00 Miscellaneous Medication (Percocet 10/325 Mg) 1 tab PO Q6H PRN PRN Reason: Pain, Moderate (4-6) Ondansetron HCl (Zofran) 4 mg IV Q8H PRN PRN Reason: Nausea And Vomiting Review of Systems Constitutional: chronic pain Breasts: deferred Cardiovascular: shortness of breath Musculoskeletal: low back pain Exam - Constitutional Vitals: Temp Pulse Resp BP Pulse Ox 98.5 F 80 16 95/56 99 09/05/19 21:05 09/05/19 17:53 09/05/19 22:19 09/05/19 21:05 09/05/19 17:53 General appearance: Present: mild distress, well-nourished - EENT Eyes: Present: PERRL ENT: hearing intact, clear oral mucosa - Neck Neck: Present: supple, normal ROM - Respiratory Respiratory effort: normal Respiratory: bilateral: CTA - Cardiovascular Heart Sounds: Present: S1 & S2. Absent: rub, click - Extremities Extremities: pulses symmetrical, No edema Peripheral Pulses: within normal limits - Abdominal General gastrointestinal: Present: soft, non-tender, non-distended, normal bowel sounds Female genitourinary: Present: deferred - Rectal Rectal Exam: deferred - Integumentary Integumentary: Present: clear, warm, dry - Musculoskeletal Musculoskeletal: gait normal, strength equal bilaterally - Psychiatric Psychiatric: appropriate mood/affect, intact judgment & insight - Neurologic Neurologic: CNII-XII intact, moves all extremities Results - Labs CBC & Chem 7: 09/05/19 01:21 09/05/19 01:21 Labs: Abnormal lab results 09/05/19 09/05/19 09/05/19 Range/Units 01:21 01:21 01:21 WBC 15.7 H (4.5-11.0) K/mm3 RBC 1.97 L (3.65-5.03) M/mm3 Hgb 7.5 L (10.1-14.3) gm/dl Hct 21.7 L (30.3-42.9) % MCV 110 H (79-97) fl MCH 38 H (28-32) pg MCHC 35 H (30-34) % RDW 20.1 H (13.2-15.2) % Plt Count 490 H (140-440) K/mm3 [place] % (Auto) 8.8 H (0.0-7.3) % [place] # 1.4 H (0.0-0.8) K/mm3 Eos # 0.7 H (0.0-0.4) K/mm3 Baso # 0.2 H (0.0-0.1) K/mm3 Seg Neutrophils # 9.2 H (1.8-7.7) K/mm3 Percent Retic 14.18 H (0.78-2.58) % PT 16.2 H (12.2-14.9) Sec. INR 1.32 H (0.87-1.13) APTT 38.3 H (24.2-36.6) Sec. BUN 5 L (7-17) mg/dL Creatinine 0.3 L (0.7-1.2) mg/dL Assessment and Plan - Patient Problems (1) Sickle cell pain crisis Current Visit: Yes Status: Acute Plan to address problem: pain control. (2) Shortness of breath Current Visit: No Status: Acute (3) Dehydration Current Visit: Yes Status: Acute Plan to address problem: Hydration. (4) Anemia Current Visit: Yes Status: Acute Plan to address problem: Replacement therapy, when indicated.
[2019-09-05] MEDS ORDERED: oxyCODONE /ACETAMINOPHEN 5-325MG TAB PO PRN (23:08)
[2019-09-05] MEDS ORDERED: oxyCODONE 5 MG TAB PO PRN (23:09)
--- NOTE | 2019-09-05 23:57 | XRay Report ---
CHEST 1 VIEW 09/05/2019 11:01 PM INDICATION / CLINICAL INFORMATION: SOB. COMPARISON: 08/22/19 FINDINGS: SUPPORT DEVICES: Interval placement of right-sided Port-A-Cath with the tip projecting over the super ior vena cava in expected position. HEART / MEDIASTINUM: No significant abnormality. LUNGS / PLEURA: No significant pulmonary or pleural abnormality. No pneumothorax. ADDITIONAL FINDINGS: No significant additional findings. IMPRESSION: 1. No acute findings. Signer Name: Sheridan Mullen MD Signed: 09/05/2019 11:52 PM Workstation Name: [id number]
[2019-09-06] MEDS ORDERED: diphenhydrAMINE 50 MG/ML VIAL ONE (01:24)
[2019-09-06] MEDS: KETOROLAC 30 MG/1 ML INJ IV SCH ×4 (01:29→19:00)
[2019-09-06] MEDS: HYDROmorphone 2 MG/1 ML INJ IV PRN ×7 (01:30→22:02)
[2019-09-06] MEDS: D5W/0.2% NACL 1,000 ML IV SCH ×3 (04:18→14:58)
[2019-09-06] MEDS: diphenhydrAMINE 50 MG/ML VIAL IV PRN ×6 (04:50→22:55)
[2019-09-06 05:40] LABS: BUN/Creatinine Ratio 10; Blood Urea Nitrogen 4 mg/dL (7-17); Calcium 8.5 mg/dL (8.4-10.2); Hemolysis Index 39
[2019-09-06 05:42] LABS: Hematocrit 22.6 % (30.3-42.9); Hemoglobin 7.8 gm/dl (10.1-14.3); Mean Corpuscular HGB Conc 35 % (30-34); Mean Corpuscular Volume 109 fl (79-97); Mean Platelet Volume 6.8 fl (6-12); Platelet Count 470 K/mm3 (140-440); Red Blood Count 2.07 M/mm3 (3.65-5.03); Red Cell Distribution Width 18.7 % (13.2-15.2)
[2019-09-06 07:07] LABS: Total Cells Counted 100
[2019-09-06 07:09] LABS: Anisocytosis 1+
[2019-09-06 07:10] LABS: Macrocytosis Few; Poikilocytosis 1+; Sickle Cells 1+
[2019-09-06 07:12] LABS: Platelet Estimate Consistent w Auto
[2019-09-06] MEDS: SODIUM CHLORIDE 23.4% 38.5 MEQ in DEXTROSE 5% IN WATER 1,000 ML IV SCH ×2 (19:05→23:39)
--- NOTE | 2019-09-06 21:12 | Progress Note ---
Assessment and Plan - Patient Problems (1) Sickle cell pain crisis Current Visit: Yes Status: Acute Plan to address problem: pain control. (2) Shortness of breath Current Visit: No Status: Acute (3) Dehydration Current Visit: Yes Status: Acute Plan to address problem: Hydration. (4) Anemia Current Visit: Yes Status: Acute Plan to address problem: Replacement therapy, when indicated. Subjective Date of service: 09/06/19 Interval history: Patient seen/examined, resting in bed, labs reviewed, case d/w patient. She stated pain level, at 9/10, especially on upper ext.Will adjust pain med up a bit, so as to control pain better, and safely, and once controlled, will plan D/C. I will d/c her Roxicodone, and toradol, and temporally ,up the Dilaudid. Objective - Constitutional Vitals: Vital Signs - 12hr 09/06/19 09/06/19 09/06/19 09:20 13:10 13:15 Temperature 98.1 F 98.1 F Pulse Rate 89 89 Respiratory 20 18 Rate Blood Pressure 88/44 Blood Pressure 99/49 [Left] O2 Sat by Pulse 95 96 96 Oximetry 09/06/19 14:00 Temperature Pulse Rate Respiratory Rate Blood Pressure Blood Pressure [Left] O2 Sat by Pulse 93 Oximetry General appearance: Present: mild distress, well-nourished - EENT Eyes: PERRL, EOM intact ENT: hearing intact, clear oral mucosa Ears: bilateral: normal - Neck Neck: supple, normal ROM - Respiratory Respiratory effort: normal Respiratory: bilateral: CTA - Breasts Breasts: deferred - Cardiovascular Rhythm: regular Heart Sounds: Present: S1 & S2. Absent: gallop, rub Extremities: pulses intact, No edema, normal color, Full ROM - Gastrointestinal General gastrointestinal: Present: soft, non-tender, non-distended, normal bowel sounds Rectal Exam: deferred - Genitourinary Female genitourinary: normal - Integumentary Integumentary: clear, warm, dry - Musculoskeletal Musculoskeletal: 1, strength equal bilaterally - Neurologic Neurologic: moves all extremities - Psychiatric Psychiatric: memory intact, appropriate mood/affect, intact judgment & insight - Labs CBC & Chem 7: 09/06/19 04:50 09/06/19 04:50 Labs: Abnormal lab results 09/06/19 09/06/19 Range/Units 04:50 04:50 WBC 13.0 H (4.5-11.0) K/mm3 RBC 2.07 L (3.65-5.03) M/mm3 Hgb 7.8 L (10.1-14.3) gm/dl Hct 22.6 L (30.3-42.9) % MCV 109 H (79-97) fl MCH 38 H (28-32) pg MCHC 35 H (30-34) % RDW 18.7 H (13.2-15.2) % Plt Count 470 H (140-440) K/mm3 Seg Neuts % (Manual) 38.0 L (40.0-70.0) % Lymphocytes % (Manual) 49.0 H (13.4-35.0) % Eosinophils % (Manual) 7.0 H (0.0-4.3) % Basophils % (Manual) 3.0 H (0.0-1.8) % Nucleated RBC % 3.0 H (0.0-0.9) % Lymphocytes # (Manual) 6.4 H (1.2-5.4) K/mm3 Eosinophils # (Manual) 0.9 H (0.0-0.4) K/mm3 Basophils # (Manual) 0.4 H (0.0-0.1) K/mm3 Percent Retic 9.99 H (0.78-2.58) % BUN 4 L (7-17) mg/dL Creatinine 0.4 L (0.7-1.2) mg/dL
[2019-09-07] MEDS: HYDROmorphone 2 MG/1 ML INJ IV PRN ×7 (01:30→21:42)
[2019-09-07] MEDS ORDERED: MAGNESIUM HYDROXIDE (MOM) ORAL LIQD UDC PO PRN (03:09)
[2019-09-07] MEDS: SODIUM CHLORIDE 23.4% 38.5 MEQ in DEXTROSE 5% IN WATER 1,000 ML IV SCH ×4 (03:33→19:32)
[2019-09-07] MEDS: diphenhydrAMINE 25 MG CAP PO PRN ×5 (05:21→21:42)
[2019-09-07] MEDS: cefTRIAXone/NS 1 GM/50 ML 1 GM/50 ML BAG IV SCH (10:13)
--- NOTE | 2019-09-07 14:32 | Progress Note ---
Assessment and Plan - Patient Problems (1) Sickle cell pain crisis Current Visit: Yes Status: Acute Plan to address problem: pain control. (2) Shortness of breath Current Visit: No Status: Acute Plan to address problem: oxygen (3) Dehydration Current Visit: Yes Status: Acute Plan to address problem: Hydration. (4) Anemia Current Visit: Yes Status: Acute Plan to address problem: Replacement therapy, when indicated. Subjective Date of service: 09/07/19 Interval history: Patient seen/examined, resting in bed, labs reviewed, case d/w patient. She stated pain level, at 9/10, especially on upper ext.Will adjust pain med up a bit, so as to control pain better, and safely, and once controlled, will plan D/C. I will d/c her Roxicodone, and toradol, and temporally ,up the Dilaudid. Patient seen/examined, resting in bed, records reviewed, case d/w patient. Objective - Constitutional Vitals: Vital Signs - 12hr 09/07/19 09/07/19 09/07/19 05:22 06:21 10:00 Temperature 97.8 F Pulse Rate 98 H Respiratory 18 16 Rate Blood Pressure 97/54 O2 Sat by Pulse 90 98 Oximetry 09/07/19 12:39 Temperature 98.8 F Pulse Rate 98 H Respiratory 14 Rate Blood Pressure 122/79 O2 Sat by Pulse 95 Oximetry General appearance: Present: mild distress, well-nourished - EENT Eyes: PERRL, EOM intact ENT: hearing intact, clear oral mucosa Ears: bilateral: normal - Neck Neck: supple, normal ROM - Respiratory Respiratory effort: normal Respiratory: bilateral: CTA - Breasts Breasts: normal - Cardiovascular Rhythm: regular Heart Sounds: Present: S1 & S2. Absent: gallop, rub Extremities: pulses intact, No edema, normal color, Full ROM - Gastrointestinal General gastrointestinal: Present: soft, non-tender, non-distended, normal bowel sounds Rectal Exam: deferred - Genitourinary Female genitourinary: deferred - Integumentary Integumentary: clear, warm, dry - Musculoskeletal Musculoskeletal: 1, strength equal bilaterally - Neurologic Neurologic: moves all extremities - Psychiatric Psychiatric: memory intact, appropriate mood/affect, intact judgment & insight - Labs CBC & Chem 7: 09/06/19 04:50 09/06/19 04:50
[2019-09-08] MEDS: SODIUM CHLORIDE 23.4% 38.5 MEQ in DEXTROSE 5% IN WATER 1,000 ML IV SCH ×5 (00:48→23:25)
[2019-09-08] MEDS: diphenhydrAMINE 25 MG CAP PO PRN ×6 (00:52→17:00)
[2019-09-08] MEDS: HYDROmorphone 2 MG/1 ML INJ IV PRN ×8 (00:53→23:24)
[2019-09-08] MEDS: cefTRIAXone/NS 1 GM/50 ML 1 GM/50 ML BAG IV SCH (09:49)
--- NOTE | 2019-09-08 18:16 | Progress Note ---
Assessment and Plan - Patient Problems (1) Sickle cell pain crisis Current Visit: Yes Status: Acute Plan to address problem: pain control. (2) Shortness of breath Current Visit: No Status: Acute Plan to address problem: oxygen (3) Dehydration Current Visit: Yes Status: Acute Plan to address problem: Hydration. (4) Anemia Current Visit: Yes Status: Acute Plan to address problem: Replacement therapy, when indicated. Subjective Date of service: 09/08/19 Interval history: Patient seen/examined, resting in bed, labs reviewed, case d/w patient. She stated pain level, at 9/10, especially on upper ext.Will adjust pain med up a bit, so as to control pain better, and safely, and once controlled, will plan D/C. I will d/c her Roxicodone, and toradol, and temporally ,up the Dilaudid. Patient seen/examined, resting in bed, records reviewed, case d/w patient. Patient seen/examined, resting in bed, no new labs. C/o pain at 7/10, today., better than yesterday. Objective - Constitutional Vitals: Vital Signs - 12hr 09/08/19 09/08/19 11:48 17:21 Temperature 98.2 F 98.8 F Pulse Rate 99 H 101 H Respiratory 14 16 Rate Blood Pressure 100/61 113/75 O2 Sat by Pulse 94 95 Oximetry General appearance: Present: mild distress, well-nourished - EENT Eyes: PERRL, EOM intact ENT: hearing intact, clear oral mucosa Ears: bilateral: normal - Neck Neck: supple, normal ROM - Respiratory Respiratory effort: normal Respiratory: bilateral: CTA - Breasts Breasts: deferred - Cardiovascular Rhythm: regular Heart Sounds: Present: S1 & S2. Absent: gallop, rub Extremities: pulses intact, No edema, normal color, Full ROM - Gastrointestinal General gastrointestinal: Present: soft, non-tender, non-distended, normal bowel sounds Rectal Exam: deferred - Genitourinary Female genitourinary: deferred - Integumentary Integumentary: clear, warm, dry - Musculoskeletal Musculoskeletal: 1, strength equal bilaterally - Neurologic Neurologic: moves all extremities - Psychiatric Psychiatric: memory intact, appropriate mood/affect, intact judgment & insight - Labs CBC & Chem 7: 09/06/19 04:50 09/06/19 04:50
[2019-09-08] MEDS: diphenhydrAMINE 50 MG/ML VIAL IV PRN ×2 (20:16→23:25)
[2019-09-09] MEDS: diphenhydrAMINE 50 MG/ML VIAL IV PRN ×7 (02:28→21:51)
[2019-09-09] MEDS: HYDROmorphone 2 MG/1 ML INJ IV PRN ×7 (02:28→21:52)
[2019-09-09] MEDS: SODIUM CHLORIDE 23.4% 38.5 MEQ in DEXTROSE 5% IN WATER 1,000 ML IV SCH ×2 (02:29→09:20)
[2019-09-09] MEDS: D5W/0.2% NACL 1,000 ML IV SCH ×3 (13:15→22:33)
--- NOTE | 2019-09-09 19:06 | Progress Note ---
Assessment and Plan - Patient Problems (1) Sickle cell pain crisis Current Visit: Yes Status: Acute Plan to address problem: pain control. (2) Shortness of breath Current Visit: No Status: Acute Plan to address problem: oxygen (3) Dehydration Current Visit: Yes Status: Acute Plan to address problem: Hydration. (4) Anemia Current Visit: Yes Status: Acute Plan to address problem: Replacement therapy, when indicated. Subjective Date of service: 09/09/19 Interval history: Patient seen/examined, resting in bed, labs reviewed, case d/w patient. She stated pain level, at 9/10, especially on upper ext.Will adjust pain med up a bit, so as to control pain better, and safely, and once controlled, will plan D/C. I will d/c her Roxicodone, and toradol, and temporally ,up the Dilaudid. Patient seen/examined, resting in bed, records reviewed, case d/w patient. Patient seen/examined, resting in bed, no new labs. C/o pain at 7/10, today., better than yesterday. Patient see/examined, resting in bed, came to discharge her home, when I realized, that her main problem of not wanting to go home, is that She is HOMELESS, and living in the street.export traffic department manager/social media strategist to please get involved in this emergency issue at hand so she can be discharged some where. Objective - Constitutional Vitals: Vital Signs - 12hr 09/09/19 09/09/19 11:38 17:31 Temperature 98.6 F 98.6 F Pulse Rate 85 98 H Respiratory 16 18 Rate Blood Pressure 96/55 93/60 O2 Sat by Pulse 96 99 Oximetry General appearance: Present: mild distress, well-nourished - EENT Eyes: PERRL, EOM intact ENT: hearing intact, clear oral mucosa Ears: bilateral: normal - Neck Neck: supple, normal ROM - Respiratory Respiratory effort: normal Respiratory: bilateral: CTA - Breasts Breasts: deferred - Cardiovascular Rhythm: regular Heart Sounds: Present: S1 & S2. Absent: gallop, rub Extremities: pulses intact, No edema, normal color, Full ROM - Gastrointestinal General gastrointestinal: Present: soft, non-tender, non-distended, normal bowel sounds Rectal Exam: deferred - Genitourinary Female genitourinary: deferred - Integumentary Integumentary: clear, warm, dry - Musculoskeletal Musculoskeletal: 1, strength equal bilaterally - Neurologic Neurologic: moves all extremities - Psychiatric Psychiatric: memory intact, appropriate mood/affect, intact judgment & insight - Labs CBC & Chem 7: 09/06/19 04:50 09/06/19 04:50
[2019-09-10] MEDS: diphenhydrAMINE 50 MG/ML VIAL IV PRN ×8 (00:37→21:19)
[2019-09-10] MEDS: HYDROmorphone 2 MG/1 ML INJ IV PRN ×8 (00:37→21:19)
[2019-09-10] MEDS: D5W/0.2% NACL 1,000 ML IV SCH ×3 (02:28→12:51)
--- NOTE | 2019-09-10 19:00 | Discharge Summary ---
Providers - Providers Date of Admission: 09/05/19 15:43 Date of discharge: 09/10/19 Attending physician: ALAINA LUA 09/09/19 19:10 Consult to Case Management [CONS] Urgent Services Needed at Discharge: Salvage Supervisor Notified:: nurse will call casework manager. Was contact made?: No Additional Physician Instructions: Patient is HOMELESS,and will need intermediate, so I can discharge her. Primary care physician: WILDLIFE ECOLOGY PROFESSOR Hospitalization Reason for admission: SCD/anemia/Pain crisis. Condition: Stable Hospital course: Patient seen/examined, resting in bed, records reviewed, case d/w her. rated pain at 4/10, and denies any other problems She will be D/C tonight. Her friend will pick her up.She had presented to the ER ,with CC of diffuse joint pain, admitted, and treated with hydration, pain control, and lab monitoring. Disposition: TO HOME OR SELFCARE - Discharge Diagnoses (1) Sickle cell pain crisis Status: Resolved (2) Shortness of breath Status: Resolved (3) Dehydration Status: Resolved (4) Anemia Status: Chronic Core Measure Documentation - Palliative Care Palliative Care/ Comfort Measures: Not Applicable - Core Measures Any of the following diagnoses?: none Exam - Constitutional Vitals: Temp Pulse Resp BP Pulse Ox 98.1 F 106 H 18 108/61 92 09/10/19 16:37 09/10/19 16:37 09/10/19 16:37 09/10/19 16:37 09/10/19 16:37 General appearance: Present: no acute distress, well-nourished - EENT Eyes: Present: PERRL ENT: hearing intact, clear oral mucosa - Neck Neck: Present: supple, normal ROM - Respiratory Respiratory effort: normal Respiratory: bilateral: CTA - Cardiovascular Heart Sounds: Present: S1 & S2. Absent: rub, click - Extremities Extremities: pulses symmetrical, No edema Peripheral Pulses: within normal limits - Abdominal General gastrointestinal: Present: soft, non-tender, non-distended, normal bowel sounds Female genitourinary: Present: deferred - Rectal Rectal Exam: deferred - Integumentary Integumentary: Present: clear, warm, dry - Musculoskeletal Musculoskeletal: gait normal, strength equal bilaterally - Psychiatric Psychiatric: appropriate mood/affect, intact judgment & insight - Neurologic Neurologic: CNII-XII intact, moves all extremities Plan Activity: no restrictions Diet: regular Follow up with: PRIMARY CARE, [Primary Care Provider] - 3-5 Days ALAINA LUA DO [Staff Physician] - 7 Days
[2019-09-10] MEDS ORDERED: NEOMY 3.5 MG/BACIT 400 UNITS/POLY B 5000 UNITS/GM OINT PACKET TP ONE (19:39)
[2019-09-10 22:39] VITALS: BP 105/64
== END 2019-09-10 22:54 | disposition home or self-care (01) | DRG 812 ==
LOC: ED 22:39 → 3A 09-05 03:44 → OBSVTOIN 09-05 15:43
PROVIDERS: ADMIT Internal Medicine Hematology & Oncology; ATTEND Internal Medicine Hematology & Oncology
DX: D57.00 Hb-SS disease with crisis, unspecified (principal); E86.0 Dehydration; D64.9 Anemia, unspecified; Z60.2 Problems related to living alone; Z86.718 Personal history of other venous thrombosis and embolism; Z90.49 Acquired absence of other specified parts of digestive tract; Z90.81 Acquired absence of spleen; Z88.5 Allergy status to narcotic agent
CPT/HCPCS: 36415; 71045; 80048; 84703; 85007; 85025; 85045; 85610; 85730; 87040; 87086; 87116; 94760; G0378; A6250; J0696; J1170; J1200; J1642; J1885; J2405; J7070; J7131